=== PATIENT | male | born 1960 | race Caucasian/White ===

== ENCOUNTER 2024-01-18 04:25 | Emergency (ER) | payer BC, SELFPAY ==
[2024-01-18 04:36] VITALS: BP 185/101; PULSE 76; RESP 18; TEMP 37.1; O2SAT 98; BMI 34.0
--- NOTE | 2024-01-18 05:07 | ED_ITS ---
HPI - General Adult General Chief complaint: Neck Injury/Pain Stated complaint: Swelling/pain jaw Time Seen by Provider: 01/18/24 04:54 Source: patient Mode of arrival: ambulatory History of Present Illness HPI narrative: 63-year-old male presents the emergency department with anterior neck pain, sore throat now pain in the ears and feeling of chest congestion. No fevers. Reports that he is been using ?Excedrin every hour for the last day? with no significant improvement in symptoms. Says he feels like it is starting to get hard to swallow. Speaks in very full sentences and had no difficulty ambulating here but says that it feels like it is hard to breathe. Symptoms started 4 days ago, slightly worsening in nature. No prior history of neck surgery. No posterior neck pain or headache. No vision changes, cardiac symptoms or productive cough. Normal appetite. No injury or trauma. When asked about the area of initial pain, he points to the bilateral submandibular glands. No difficulty moving the neck. No speech changes. No difficulty opening his mouth. Past medical history notable for diabetes, hyperlipidemia. He also reports that he has diabetic neuropathy. No blood thinners, no history of cardiac issues. [facility] care team is from another health system and I do not have any access to his records. States that he is a nonsmoker. Medications reported as accurate per him but he does not know his doses and the recorded values are not based on any reliable records. ROS is notable for the generalized, respiratory, HEENT symptoms as above. Otherwise denies times 12 systems. Related Data Home Medications ?Medication ?Instructions ?Recorded ?Confirmed albuterol sulfate 90 mcg/actuation g inhalation 04/01/22 04/01/22 aerosol inhaler (Ventolin HFA) blood sugar diagnostic (Accu-Chek #10 ea 04/01/22 04/01/22 Guide test strips) gabapentin 100 mg capsule 100 mg PO 04/01/22 04/01/22 metformin 500 mg tablet 500 mg PO 04/01/22 04/01/22 rosuvastatin 20 mg tablet 20 mg PO 04/01/22 04/01/22 Previous Rx's ?Medication ?Instructions ?Recorded benzonatate 100 mg capsule 100 mg PO BID-TID PRN cough #14 04/01/22 caps amoxicillin 500 mg capsule 1,000 mg (2 x 500 mg) PO BID 10 01/18/24 days #40 caps Allergies Allergy/AdvReac Type Severity Reaction Status Date / Time No Known Drug Allergies Allergy Verified 04/01/22 12:09 [facility] Social History Smoking Status: Never smoker Exam Const: Vital Signs, click to edit/add: Vital Signs - 24 hr 01/18/24 04:36 01/18/24 05:15 01/18/24 06:47 Temperature 98.8 F 98.8 F 98.8 F Pulse Rate [Pulse Oximeter] 76 Respiratory Rate 18 Blood Pressure [Le ft Upper Arm] 185/101 H Pulse Oximetry 98 Oxygen Delivery Me thod Room Air Common normals: no apparent distress and alert General appearance: cooperative Other: Friendly but suboptimal historian. Answers are tangental. Able to speak in long full sentences with no difficulty breathing. Has a lot of fullness underneath the chin but as he manipulates and moves it, it is clear that this is chronic for him and is soft and mobile and not due to any new fluid collection. HENMT: Common normals: normocephalic and head/scalp atraumatic Head and scalp: normocephalic and atraumatic Other: Right canal into EMR inflamed with loss of light reflex and mucopurulent appearing effusion. Left side with mild erythema and injection but light reflex is still present. The oropharynx has swollen uvula. Tonsils themselves appear without asymmetry. No exudate. Mild erythema is present. He certainly is swallowing his saliva on exam for me. Eye: Other: Conjunctiva are slightly injected, no exudate. Neck & C-Spine: Common normals: no meningeal signs Other: Mild anterior cervical and submandibular lymphadenopathy. Full range of motion of the neck with no meningeal signs or asymmetry. No redness streaking down the neck. I do palpate that area of fullness underneath the chin and it is clear that this is anatomically normal for him. Resp: Common normals: normal respiratory effort, no use of accessory muscles and clear to auscultation bilaterally Effort & inspection: able to speak in complete sentences Auscultation: clear to auscultation bilaterally Cardio: Common normals: regular rate, regular rhythm, S1 normal heart sound, S2 normal heart sound and no murmurs Rate: regular rate Rhythm: regular rhythm Heart sounds: S1 normal and S2 normal Neuro: Sensorium/orientation: alert Meningeal signs: no meningeal signs Speech: speech normal Motor exam: no movement abnormalities noted Psych: Appearance: grossly normal Insight: fair Judgement: fair Skin: Common normals: no rashes or lesions noted General skin exam: no rashes or lesions noted Course Course ED Course: 63-year-old male with initially some tender submandibular area now progressing into ear tenderness, chest congestion and sore throat. No asymmetry or trismus to suggest abscess, spreading infection, respiratory compromise or true swallowing difficulty. He does seem quite miserable and seems like he is having difficulty coping with what does not seem to be a major illness. Will obtain swabs for strep, influenza COVID and RSV. Will give dexamethasone 6 mg p.o. x1, start him on amoxicillin for the ear infection and give some ibuprofen. He was counseled on use of the Excedrin properly. Is also reminded that the reason he probably cannot sleep is because he is taking Excedrin and it contains caffeine which he did not realize. Await swab results. Reevaluation(s) Time of Reevaluation #1: 06:53 Reevaluation #1: COVID swab is positive, patient counseled on results. Ear infection does seem most bothersome. Physical exam is concerning enough to warrant a trial of an antibiotic for this. Discussed with patient. Will start amoxicillin 1 g b.i.d .. Counseled that this will not treat the pharyngitis, chest congestion or viral symptoms. He is vaccinated against COVID. Instructed to wear mask in public for the next few days, counseled on Tylenol and ibuprofen and proper dosing. Okay to use melatonin or Unisom to help with sleep. Alarm symptoms reviewed that would warrant ED presentation. He verbalizes understanding and agreement. Follow up with primary care if not improving in 5-7 days. Okay to continue typical home medications. Vital Signs Vital signs: Initial Vital Signs Temperature 98.8 F 01/18/24 04:36 Temperature Source Temporal Artery Scan 01/18/24 04:36 Pulse Rate 76 01/18/24 04:36 Respiratory Rate 18 01/18/24 04:36 Blood Pressure 185/101 H 01/18/24 04:36 Blood Pressure Mean 129 H 01/18/24 04:36 Blood Pressure Position Sitting 01/18/24 04:36 Pulse Oximetry 98 0821/24 04:36 Oxygen Delivery Method Room Air 01/18/24 04:36 Vital Signs Temperature 98.8 F 01/18/24 04:36 Pulse Rate 76 01/18/24 04:36 Respiratory Rate 18 01/18/24 04:36 Blood Pressure 185/101 H 01/18/24 04:36 Pulse Oximetry 98 01/18/24 04:36 Oxygen Delivery Method Room Air 01/18/24 04:36 Temperature 98.8 F 01/18/24 06:47 Pulse Rate 76 01/18/24 04:36 Respiratory Rate 18 01/18/24 04:36 Blood Pressure 185/101 H 01/18/24 04:36 Pulse Oximetry 98 01/18/24 04:36 Oxygen Delivery Method Room Air 01/18/24 04:36 Medications Administered Medications: Discontinued Medications Generic Name Dose Route Start Last Admin Trade Name Freq PRN Reason Stop Dose Admin Amoxicillin 1,000 mg 01/18/24 05:04 01/18/24 05:16 Amoxicillin 250 Mg Capsule PO 01/18/24 05:05 1,000 mg ONCE ONE Administration Dexamethasone 6 mg 01/18/24 05:04 01/18/24 05:15 Dexamethasone 10 Mg/Ml Inj PO 01/18/24 05:05 6 mg ONCE ONE Administration Ibuprofen 800 mg 01/18/24 05:04 01/18/24 05:15 Ibuprofen 400 Mg Tablet PO 01/18/24 05:05 800 mg ONCE ONE Administration Medical Decision Making Lab Data Lab results reviewed: Yes I reviewed the patient's lab results Lab results narrative: COVID test positive, not unexpected. Labs: Lab Results 01/18/24 Range/Units 05:15 SARS-CoV-2 (PCR) POSITIVE SARS-CoV-2 A (Negative) Influenza Type A (PCR) Negative PCR FLU A (Negative) Influenza Type B (PCR) Negative PCR FLU B (Negative) RSV (PCR) Negative PCR RSV (Negative) Group A Strep DNA NOT DETECTED (Not Detectd) Discharge Plan Discharge Clinical Impression: COVID, Pharyngitis, Otitis media Patient Disposition: Home, Self-Care Condition: Stable Instructions: COVID-19 (Coronavirus Disease 2019) (ED) Additional Instructions: As we discussed, you have COVID. This virus can have many symptoms but I am seeing a lot of sore throats, throat, ear and chest congestion with this current strain. There are no signs of any severe complications. You were given a dose of dexamethasone, this is a great anti-inflammatory medication that will calm down the irritation and swelling. Most people notice quite a bit of improvement in just a few hours. I would recommend that you stop taking the Excedrin, as the caffeine is going to keep you awake. I would recommend Tylenol 1000 mg every 6 hours and ibuprofen 600 mg every 6 hours. You will need to continue on antibiotics for the ear infection. This will not treat the throat or chest congestion. You were given your 1st dose here in the emergency department at about 6:00 a.m.. You will be due for another dose this evening at around 6:00 p.m.. 2 pills 2 times a day for total of 10 days. The swelling in the throat can be a little uncomfortable but you should be able to swallow even though it is slightly difficult. There are no signs of any airway compromise today. If you are not noticing improvement at least somewhat within 48 hours, seek re- evaluation at an urgent care or primary care office. Any severe shortness of breath should be evaluated in an emergency room. Continue taking your medications as prescribed you may notice that your blood sugar is a bit higher than usual for 2 days due to the dexamethasone. This is temporary and not worrisome. Activity Level: No Restrictions Discharge Diet: Regular Prescriptions: New amoxicillin 500 mg capsule 1,000 mg PO BID 10 Days Qty: 40 0RF No Action albuterol sulfate [Ventolin HFA] 90 mcg/actuation HFA aerosol inhaler inhalation Patient Comments: INHALE 2 PUFFS BY MOUTH EVERY 6 HOURS gabapentin 100 mg capsule 100 mg PO metformin 500 mg tablet 500 mg PO rosuvastatin 20 mg tablet 20 mg PO (DME) Accu-Chek Guide test strips Strip See Rx Instructions .ROUTE .MEDSUPPLY Qty: 10 Patient Comments: USE TO TEST FOUR TIMES DAILY OR DIRECTED Rx Instructions: As directed benzonatate 100 mg capsule 100 mg PO BID-TID PRN (Reason: cough) Qty: 14 0RF Follow Up/Referrals: Provider,Not a Local [Primary Care Provider] - Stand Alone Forms: [employer] Info Instructions
[2024-01-18 05:15] VITALS: TEMP 37.1
[2024-01-18] MEDS: IBUPROFEN 400 MG TABLET 800 MG PO (05:15)
[2024-01-18] MEDS: dexAMETHasone 10 MG/ML inj 6 MG PO (05:15)
[2024-01-18] MEDS: AMOXICILLIN 250 MG CAPSULE 1000 MG PO (05:16)
[2024-01-18 05:44] LABS: Strep A DNA Probe* NOT DETECTED (Not Detectd)
[2024-01-18 06:38] LABS: PCR FLU A Negative PCR FLU A (Negative); PCR FLU B Negative PCR FLU B (Negative); PCR RSV Negative PCR RSV (Negative); SARS PCR* POSITIVE SARS-CoV-2 (Negative)
[2024-01-18 06:47] VITALS: TEMP 37.1
[2024-01-18 07:00] VITALS: BP 185/101; PULSE 76; RESP 18; TEMP 37.1
== END 2024-01-18 07:00 | disposition home or self-care (01) ==
PROVIDERS: Emergency Provider Family Medicine
DX: H66.93 Otitis media, unspecified, bilateral (principal); U07.1 COVID-19
CPT/HCPCS: 87631; 87651; 99283; A9270; J1100

== ENCOUNTER 2024-03-25 11:39 | Emergency (ER) | payer BC, SELFPAY ==
[2024-03-25 11:56] VITALS: BP 166/96; PULSE 67; RESP 16; TEMP 36.6; O2SAT 97; BMI 35.4
--- NOTE | 2024-03-25 12:23 | ED.EYEPROB ---
HPI - Eye Problem General Chief complaint: Eye Problems Stated complaint: Swollen right eye Time Seen by Provider: 03/25/24 11:41 History of Present Illness HPI Narrative: This 63-year-old male comes in with irritation of his right eye. He states that it was fiber 6 days ago he was doing some yd work and got extra dust and debris blown into his right eye. He does not report any discharge but has had persistent erythema with mild swelling of the right upper eyelid laterally. He also has some yellowish discoloration of the sclera on the lateral aspect of his right eye. He does not report any eye pain. He states that he was using a warm compress thinking that this might be a stye. Related Data Home Medications ?Medication ?Instructions ?Recorded ?Confirmed albuterol sulfate 90 mcg/actuation g inhalation 04/01/22 04/01/22 aerosol inhaler (Ventolin HFA) blood sugar diagnostic (Accu-Chek #10 ea 04/01/22 04/01/22 Guide test strips) gabapentin 100 mg capsule 100 mg PO 04/01/22 04/01/22 metformin 500 mg tablet 500 mg PO 04/01/22 04/01/22 rosuvastatin 20 mg tablet 20 mg PO 04/01/22 04/01/22 Previous Rx's ?Medication ?Instructions ?Recorded benzonatate 100 mg capsule 100 mg PO BID-TID PRN cough #14 04/01/22 caps amoxicillin 500 mg capsule 1,000 mg (2 x 500 mg) PO BID 10 01/18/24 days #40 caps ketorolac 0.5 % eye drops (Acular) 1 drp ophthalmic (eye) QID #5 mL 03/25/24 polymyxin B sulfate 10,000 1 drp ophthalmic (eye) Q3H 7 days 03/25/24 unit-trimethoprim 1 mg/mL eye drops #10 mL Allergies Allergy/AdvReac Type Severity Reaction Status Date / Time No Known Drug Allergies Allergy Verified 04/01/22 12:09 Review of Systems Status of ROS: Reports: 10 or more systems reviewed and unremarkable except as noted in History and below Narrative: Constitutional: No fevers, no weight gain or loss. Eyes: No discharge. No vision changes. Right upper eyelid changes as described above. HENT: No congestion, no sore throat, no ear pain. Cardiovascular: No chest pain, no palpitations. Respiratory: No shortness of breath, no wheezes, no cough. Gastrointestinal: No abdominal pain, no vomiting, no diarrhea. Genitourinary: No dysuria, no hematuria. Musculoskeletal: Normal range of motion. Skin: No rashes, no pruritis. Neurological: No dizziness, weakness, sensory change, speech change. Endo/Heme/Allergies: No bruising or bleeding. No polydipsia. Pysch: no suicidality, no anxiety, no insomnia. All other systems reviewed and are negative. [facility] Social History Smoking Status: Never smoker How often do you have a drink containing alcohol: never AUDIT-C Alcohol total score: 0 Non-prescribed substance use: denies use Exam Narrative: Exam Narrative: Constitutional: Well-developed, well-nourished, no acute distress. HEENT: Normocephalic, atraumatic. Left eye appears normal. Right eye does have some mild yellowish color on the lateral aspect only, not typical of jaundice. Right upper eyelid has some erythema and mild swelling. Visual chung are intact. No sign of tearing or purulent discharge. Neck: Normal range of motion. Nontender. Supple. Heart: Intact distal pulses. Lungs: No chest discomfort. No wheezes, rhonchi, or rales. Abdomen: Nontender. Back: Normal range of motion. Extremities: Normal range of motion. No injury. Skin: Intact. No rash. Warm. No erythema or pallor. Neurologic: No altered sensation. No weakness. Alert and oriented. Psychiatric: No suicidality. No anxiety or depression. No insomnia. Nursing notes and vitals signs are reviewed. Const: Vital Signs, click to edit/add: Vital Signs - 24 hr 03/25/24 11:56 Temperature 97.8 F Pulse Rate [Pulse Oximeter] 67 Respiratory Rate 16 Blood Pressure [Ri ght Upper Arm] 166/96 H Pulse Oximetry 97 Oxygen Delivery Me thod Room Air Course Vital Signs Vital signs: Initial Vital Signs Temperature 97.8 F 03/25/24 11:56 Temperature Source Temporal Artery Scan 03/25/24 11:56 Pulse Rate 67 03/25/24 11:56 Respiratory Rate 16 03/25/24 11:56 Blood Pressure 166/96 H 03/25/24 11:56 Blood Pressure Mean 119 H 10/27/24 11:56 Blood Pressure Position Sitting 03/25/24 11:56 Pulse Oximetry 97 03/25/24 11:56 Oxygen Delivery Method Room Air 03/25/24 11:56 Vital Signs Temperature 97.8 F 03/25/24 11:56 Pulse Rate 67 03/25/24 11:56 Respiratory Rate 16 03/25/24 11:56 Blood Pressure 166/96 H 03/25/24 11:56 Pulse Oximetry 97 03/25/24 11:56 Oxygen Delivery Method Room Air 03/25/24 11:56 Temperature 97.8 F 03/25/24 11:56 Pulse Rate 67 03/25/24 11:56 Respiratory Rate 16 03/25/24 11:56 Blood Pressure 166/96 H 03/25/24 11:56 Pulse Oximetry 97 03/25/24 11:56 Oxygen Delivery Method Room Air 03/25/24 11:56 MDM - Eye Problem MDM Narrative Medical decision making narrative: This patient comes in with complaints involving his right eye and eyelid as described above. I did examine his eye under magnification and saw that no sign of foreign object. He does have some erythema of the right upper eyelid laterally with mild swelling. The patient states that he does have an appointment with his eye doctor in a few weeks. I did prescribe ketorolac ophthalmic solution and Polytrim for symptomatic relief and if there is a possibility of infection this hopefully will help him. Discharge Plan Discharge Clinical Impression: Bacterial conjunctivitis Additional Instructions: Take medication as prescribed. Follow-up with eye doctor as scheduled or sooner if needed. Return if worsening. Prescriptions: New polymyxin B sulf-trimethoprim 10,000 unit- 1 mg/mL drops 1 drp ophthalmic (eye) Q3H 7 Days Qty: 10 0RF Rx Instructions: while awake; do not exceed 6 doses in 24 hours ketorolac [Acular] 0.5 % drops 1 drp ophthalmic (eye) QID Qty: 5 0RF No Action albuterol sulfate [Ventolin HFA] 90 mcg/actuation HFA aerosol inhaler inhalation Patient Comments: INHALE 2 PUFFS BY MOUTH EVERY 6 HOURS gabapentin 100 mg capsule 100 mg PO metformin 500 mg tablet 500 mg PO rosuvastatin 20 mg tablet 20 mg PO (DME) Accu-Chek Guide test strips Strip See Rx Instructions .ROUTE .MEDSUPPLY Qty: 10 Patient Comments: USE TO TEST FOUR TIMES DAILY OR DIRECTED Rx Instructions: As directed benzonatate 100 mg capsule 100 mg PO BID-TID PRN (Reason: cough) Qty: 14 0RF amoxicillin 500 mg capsule 1,000 mg PO BID 10 Days Qty: 40 0RF Follow Up/Referrals: Provider,Not a Local [Primary Care Provider] - Stand Alone Forms: [employer] Info Instructions
== END 2024-03-25 12:39 | disposition home or self-care (01) ==
LOC: ED 12:32
PROVIDERS: Emergency Provider Emergency Medicine Emergency Medical Services
DX: H10.021 Other mucopurulent conjunctivitis, right eye (principal)
CPT/HCPCS: 99283; 99284

== ENCOUNTER 2024-12-26 12:00 | Inpatient (IN) | payer MEDICARE, MEDICAID, SELFPAY ==
--- OUTSIDE RECORDS SUMMARY | 2024-12-26 12:02 | XMS_ITS | Patient Health Record ---
Author Organization [facility] 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 Pt currently lives alone in an apartment in [place]. Pt currently lives alone in an apartment in [place]. Pt currently lives alone in an apartment in [place]. Pt currently lives alone in an apartment in [place]. Pt currently lives alone in an apartment in [place] Pt currently lives alone in an apartment [place] Pt currently lives alone in an apartment [place] Pt currently lives alone in an apartment [place] Pt currently lives alone in an apartment [place] Pt currently lives alone in an apartment [place] Pt currently lives alone in an apartment [place] Pt currently lives alone in an apartment [place] Pt currently lives alone in an apartment [place] Pt currently lives alone in an apartment [place] Pt currently lives alone in an apartment [place] Pt currently lives alone in an apartment [place] Pt currently lives alone in an apartment [place] Pt currently lives alone in an apartment [place] Pt currently lives alone in an apartment [place] Pt currently lives alone in an apartment [place] Pt currently lives alone in an apartment [place] Pt currently lives alone in an apartment [place] Pt currently lives alone in an apartment [place] Pt currently lives alone in an apartment [place] Pt currently lives alone in an apartment [place] Pt currently lives alone in an apartment [place] Pt currently lives alone in an apartment [place] Pt currently lives alone in an apartment [place] Pt currently lives alone in an apartment [place] Pt currently lives alone in an apartment [place] Pt currently lives alone in an apartment [place] Pt currently lives alone in an apartment [place] Pt currently lives alone in an apartment [place] Pt currently lives alone in an apartment [place] Pt currently lives alone in an apartment [place] Pt currently lives alone in an apartment [place] Pt currently lives alone in an apartment [place] Pt currently lives alone in an apartment [place] Pt currently lives alone in an apartment [place] Pt currently lives alone in an apartment [place] Pt currently lives alone in an apartment [place] Pt currently lives alone in an apartment [place] Pt currently lives alone in an apartment [place] Pt currently lives alone in an apartment [place] Pt currently lives alone in an apartment [place] Pt currently lives alone in an apartment [place] Pt currently lives alone in an apartment [place] Pt currently lives alone in an apartment [place] Pt currently lives alone in an apartment [place] Pt currently lives alone in an apartment [place] Pt currently lives alone in an apartment [place] Pt currently lives alone in an apartment in [place]. Pt currently lives alone in an apartment in [place]. Pt currently lives alone in an apartment in [place]. Pt currently lives alone in an apartment in [place]. Pt currently lives alone in an apartment in [place]. Problems Problem Type SNOMED Code ICD Code Onset Dates Problem Status W/U Status Risk Notes Problem Headache (26294456) Headache (784.0) Active confirmed Problem displacement of cervical intervertebral disc (disorder) (583261388) CERVICAL DISC DISPLACMNT (722.0) Active confirmed Problem SPRAIN OF NECK (847.0) Active confirmed Plan Of Treatment No Information Insurance Providers Payer Name Payer Address Payer Phone Subscriber Number Group Number Insured Name Patient Relationship to Insured Coverage Start Date Coverage End Date State [facility] auto [address] [address] [place] [address] [phone] [id number] Rodo Givens Self - patient is the insured test 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 Berumen and chiropractor in [place] History of diverticulosis for the last 1 5-20 yrs with prior surgery
--- OUTSIDE RECORDS SUMMARY | 2024-12-26 12:02 | XMS_ITS | Encounter Summary ---
Author Organization [facility] Address [address] [place] [address] Care Team Providers Care Corporate Director Of Pharmacy Name Role Phone Dyan Baca MD Primary Care Provider [phone] Dyan Baca MD Unavailable [phone] Robin Rice OD Unavailable [phone] Dyan Baca MD Unavailable [phone] Reason for Visit * Reason Comments Medication Refill Encounter Details Date Type Department Care Team (Late st Contact Info) Description 04/25/[address] [place] [address] Dyan Baca MD [address] [place] [id number] Medication Refill Social History Tobacco Use Types Packs/Day Years Used Date Smoking Tobacco: Never Smokeless Tobacco: Never Alcohol Use Standard Drinks/Week Comments Not Currently 0 (1 standard drink = 0.6 oz pur e alcohol) None for 10 yrs PHQ-2 Answer Date Recorded PHQ-2 Score 0 07/25/2020 Sex and Gender Information Value Date Recorded Sex Assigned at Not on file Legal Sex Male 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 No / Unsure 04/20/2021 10:18 AM VAT OPERATOR documented as of this encounter Plan of Treatment Upcoming Encounters Date Type Department Care Team (Late st Contact Info) Description 12/28/2024 8:00 AM CDT Office Visit [facility] [address] [facility], [address] [place] [phone] Dyan Baca MD [address] [place] [id number] documented as of this encounter Visit Diagnoses Diagnosis Cough documented in this encounter Care Teams Corporate Director Of Pharmacy Relationship Specialty Start Date End Date Dyan Baca MD [address] [place] [id number] PCP - General Internal Medicine 12/18/18 Dyan Baca MD [address] [place] [id number] Assigned PCP 11/24/18 Robin Rice OD [address] [place] [address] [id number] Ophthalmology 12/28/23 Dyan Baca MD [address] [place] [address] Referring Physician Internal Medicine 12/28/23 documented as of this encounter
--- OUTSIDE RECORDS SUMMARY | 2024-12-26 12:02 | XMS_ITS | Encounter Summary ---
Author Organization [place] Address [address] [place] [address] Care Team Providers Care Database Marketing Analyst Name Role Phone Dyan Baca MD Primary Care Provider Dyan Baca MD Unavailable [phone] Robin Rice OD Unavailable [phone] Dyan Baca MD Unavailable [phone] Reason for Visit * Reason Comments Medication Refill Encounter Details Date Type Department Care Team (Late st Contact Info) Description 08/21/[address] [place] [phone] Dyan Baca MD [address] [place] [address] Medication Refill Social History Tobacco Use Types Packs/Day Years Used Date Smoking Tobacco: Never Smokeless Tobacco: Never Alcohol Use Standard Drinks/Week Comments Not Currently 0 (1 standard drink = 0.6 oz pur e alcohol) None for 10 yrs PHQ-2 Answer Date Recorded PHQ-2 Score 0 05/04/2021 Sex and Gender Information Value Date Recorded Sex Assigned at Not on file 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 Aliza Alarcon, RN [facility] grader patrol Team documented in this encounter Plan of Treatment Upcoming Encounters Date Type Department Care Team (Late st Contact Info) Description 12/28/2024 8:00 AM CDT Office Visit [facility] [address] [facility], [address] [place] [address] Dyan Baca MD [address] [place] [address] documented as of this encounter Visit Diagnoses Diagnosis Type 2 diabetes mellitus without complication, without long-term current use of insulin (H) documented in this encounter Care Teams Database Marketing Analyst Relationship Specialty Start Date End Date Dyan Baca MD [address] [place] [address] PCP - General Internal Medicine 12/18/18 Dyan Baca MD [address] [place] [address] Assigned PCP 11/24/18 Robin Rice OD [address] [place] [address] Ophthalmology 12/28/23 Dyan Baca MD [address] [place] [address] Referring Physician Internal Medicine 12/28/23 documented as of this encounter
--- OUTSIDE RECORDS SUMMARY | 2024-12-26 12:02 | XMS_ITS | Encounter Summary ---
Author Organization [place] Address [address] [facility] 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 Bhavani Loyd RN IFOCAL BUTTON GRINDER documented in this encounter Plan of Treatment Upcoming Encounters Date Type Department Care Team (Late st Contact Info) Description 12/28/2024 8:00 AM CDT Office Visit [facility] [address], [address] [place] [phone] Dyan Baca MD [address] [place] [address] documented as of this encounter Visit Diagnoses Diagnosis Pneumonia of left upper lobe due to infectious organism documented in this encounter Care Teams Retirement Manager Relationship Specialty Start Date End Date Dyan Baca MD [address] [place] [phone] PCP - General Internal Medicine 12/18/18 Dyan Baca MD [address] [place] [phone] Assigned PCP 11/24/18 Robin Rice OD [address] [place] [id number] Ophthalmology 12/28/23 Dyan Baca MD [address] [place] [address] Referring Physician Internal Medicine 12/28/23 documented as of this encounter
--- OUTSIDE RECORDS SUMMARY | 2024-12-26 12:02 | XMS_ITS | Encounter Summary ---
Author Organization [place] Address [address] [facility] [place] [address] Care Team Providers Care Visitor Use Assistant Name Role Phone Dyan Baca MD Primary Care Provider Dyan Baca MD Unavailable Ta Shetty MD Unavailable Duong Carrizales MD Unavailable Unavailabl Robin Salcedo OD Unavailable Dyan Baca MD Unavailable Reason for Visit * Reason Comments Medication Refill Encounter Details Date Type Department Care Team (Late st Contact Info) Description 12/18/2020 Refill [facility] [address] [place] [address], [address] [place] [address] Dyan Baca MD [address] [facility] 150 [place], [place] [phone] Medication Refill Social History Tobacco Use Types [...] on file 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 Dina Nunez RN [place] documented in this encounter Plan of Treatment Upcoming Encounters Date Type Department Care Team (Late st Contact Info) Description 12/28/2024 8:00 AM CDT Office Visit [facility] [place] [address] [facility], [address] [place] [phone] Dyan Baca MD [address] [place] [address] documented as of this encounter Visit Diagnoses Diagnosis Type 2 diabetes mellitus without complication, without long-term current use of insulin (H) documented in this encounter Care Teams Visitor Use Assistant Relationship Specialty Start Date End Date Dyan Baca MD [address] [place] [address] PCP - General Internal Medicine 12/18/18 Dyan Baca MD [address] [place] [address] Assigned PCP 11/24/18 Ta Shetty MD [address] [place] [address] Assigned Surgical Provider 03/21/20 01/17/21 Duong Carrizales MD Assigned Heart and Vascular Provider 03/21/20 03/28/21 Robin Rice OD [address] [place] [id number] Ophthalmology 12/28/23 Dyan Baca MD [address] [facility] [address] [place] [address] Referring Physician Internal Medicine 12/28/23 documented as of this encounter
--- OUTSIDE RECORDS SUMMARY | 2024-12-26 12:02 | XMS_ITS | Encounter Summary ---
Author Organization [place] Address [address] [facility] 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 No / Unsure 07/04/2021 3:26 PM MANAGER LOSS PREVENTION documented as of this encounter Miscellaneous Notes * Telephone Encounter - Becky Nino RN - 07/28/2021 12:06 PM CST Prescription approved per [facility] Refill Protocol. Becky Wei it recruiter [facility] GER LOSS PREVENTION documented in this encounter Plan of Treatment Upcoming Encounters Date Type Department Care Team (Late st Contact Info) Description 12/28/2024 8:00 AM CDT Office Visit [facility] [address], [address] [place] [phone] Dyan Baca MD [address] [place], [place] [phone] documented as of this encounter Visit Diagnoses Diagnosis Pneumonia of left upper lobe due to infectious organism documented in this encounter Care Teams Personal Computer Network Engineer Relationship Specialty Start Date End Date Dyan Baca MD [address] [place], [place] [address] PCP - General Internal Medicine 12/18/18 Dyan Baca MD [address] [place], [place] [address] Assigned PCP 11/24/18 Robin Rice OD [address] [place] [address] Ophthalmology 12/28/23 Dyan Baca MD [address] [place], [place] [phone] Referring Physician Internal Medicine 12/28/23 documented as of this encounter
--- OUTSIDE RECORDS SUMMARY | 2024-12-26 12:02 | XMS_ITS | Clinical Summary ---
Author Organization [facility] Address [address] [place] [address] Care Team Providers Care Pond Tender Name Role Phone Needs Pcp, Assignment Primary Care Provider Source Comments You are receiving this document as you are listed as the primary care provider,follow-up provider, or the patient has been referred to you for consultation.This is in compliance with the Medicare andMedicaid EHR Incentive Program,which states Providers who transition their patient to another setting of careor provider of care or refers their patient to another provider of care shouldprovide summary care record for each transition of care or referral. [facility] Allergies No known active allergies Medications gabapentin (NEURONTIN) 100 MG capsule Take 100 mg by mouth three times a day. 07/08/2021 Active metFORMIN (GLUCOPHAGE) 500 MG tablet Take 500 mg by mouth two times a day. 05/26/2021 Active rosuvastatin (CRESTOR) 20 MG tablet Take 20 mg by mouth daily at bedtime. 07/14/2021 Active Active Problems Problem Noted Date Diagnosed Date Lumbago 11/03/2002 Overview (01/19/2017): Pain Low Back Immunizations Immunization Administration Dates Next Due Tdap 07/28/2021 Social History Tobacco Use Types Packs/Day Years Used Date Smoking Tobacco: Never Smokeless Tobacco: Never Sex and Gender Information Value Date Recorded Sex Assigned at Not on file Legal Sex Male 6:25 PM CDT Gender Identity Not on file Sexual Orientation Not on file Last Filed Vital Signs Vital Sign Reading Time Taken Comments Blood Pressure 118/76 07/28/2021 2:56 PM FIRE PREVENTION SPECIALIST Pulse 97 07/28/2021 2:56 PM FIRE PREVENTION SPECIALIST Temperature 36.5 C (97.7 F) 07/28/2021 2:56 PM FIRE PREVENTION SPECIALIST Respiratory Rate 14 07/28/2021 2:56 PM FIRE PREVENTION SPECIALIST Oxygen Saturation 100% 07/28/2021 2:56 PM FIRE PREVENTION SPECIALIST Inhaled Oxygen Concentration - - Weight - - Height - - Body Mass Index - - Plan of Treatment Health Maintenance Due Date Last Done Comments Colon Cancer Screening Plan Due 1959 Hep C Screening (Preventive Services) 1960 PSA Screening Discussion 1959 Adult Preventive Visit 1977 Cholesterol 1994 Pneumococcal Vaccine 50+ Yrs (1 of 1 - PCV) 2009 Zoster/Shingles Vaccine (1 o f 2) 2009 COVID-19 Vaccine (4 - 2023-2 5 season) 2024 05/04/2021, 07/29/2020, 07/07/2020 Influenza Vaccine (#1) 2025 02/25/2016 DTaP/Tdap/Td Vaccine (3 - Tdap) 07/29/2031 07/28/2021, 11/06/2012 RSV Vaccine (1 - 1-dose 75+ series) 2034 HepA Vaccine Aged Out No longer eligi ble based on patient's age to complete this topic HepB Vaccine Aged Out No longer eligi ble based on patient's age to complete this topic Hib Vaccine Aged Out No longer eligi ble based on patient's age to complete this topic IPV (Polio) Vaccine Aged Out No longe r eligible based on patient's age to complete this topic MCV4 Vaccine Aged Out No longer eligi ble based on patient's age to complete this topic Meningococcal B Vaccine Aged Out No l onger eligible based on patient's age to complete this topic Care Teams Pond Tender Relationship Specialty Start Date End Date Needs Pcp, [place] [address] PCP - General 04/02/22
--- OUTSIDE RECORDS SUMMARY | 2024-12-26 12:02 | XMS_ITS | Encounter Summary ---
Author Organization [place] Address [facility] [place] [address] Care Team Providers Care Diagnostic Radiologic Technologist Name Role Phone Dyan Baca MD Primary Care Provider Dyan Baca MD Unavailable [phone] Robin Rice OD Unavailable [phone] Dyan Baca MD Unavailable Reason for Visit * Reason Comments Medication Refill Encounter Details Date Type Department Care Team (Late Contact Info) Description 03/30/2021 Refill [place] [address] [facility], [address] [place] [phone] Dyan Baca MD [address] [facility] 150 [place] [address] Medication Refill Social History Tobacco Use [...] on file Legal Sex Male 3:42 AM 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 LEAD Gender Identity Not on file Sexual Orientation Not on file 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, 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 Not on file Not on f ile documented as of this encounter Plan of Treatment Upcoming Encounters Date Type Department Care Team (Late st Contact Info) Description 12/28/2024 8:00 AM CDT Office Visit [address], [address] [place] [phone] Dyan Baca MD [address] [place] [address] documented as of this encounter Visit Diagnoses Diagnosis Pneumonia of left upper lobe due to infectious organism documented in this encounter Care Teams Diagnostic Radiologic Technologist Relationship Specialty Start Date End Date Dyan Baca MD [address] [place] [address] PCP - General Internal Medicine 12/18/18 Dyan Baca MD [address] [place] [address] Assigned PCP 11/24/18 Robin Rice OD [address] [place] [phone] Ophthalmology 12/28/23 Dyan Baca MD [address] [place] [address] Referring Physician Internal Medicine 12/28/23 documented as of this encounter
--- OUTSIDE RECORDS SUMMARY | 2024-12-26 12:02 | XMS_ITS | Encounter Summary ---
Author Organization [place] Address [address] [facility] [place] [address] Care Team Providers Care Business Analysis Specialist Name Role Phone Dyan Baca MD Primary Care Provider Dyan Baca MD Unavailable [phone] Ta Shetty MD Unavailable Duong Carrizales MD Unavailable Unavailabl Robin Salcedo OD Unavailable Dyan Baca MD Unavailable Reason for Visit * Reason Comments Medication Refill Encounter Details Date Type Department Care Team (Late st Contact Info) Description 12/25/2020 Refill [facility] [address] [place] [address], [address] [place] [address] Dyan Baca MD [address] [facility] 150 [place], [place] [phone] Medication Refill Social History Tobacco Use Types [...] on file 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 Dina Nunez RN [facility] documented in this encounter Plan of Treatment Upcoming Encounters Date Type Department Care Team (Late st Contact Info) Description 12/28/2024 8:00 AM CDT Office Visit [facility] [address] [facility], [address] [place] [address] Dyan Baca MD [address] [place] [address] documented as of this encounter Visit Diagnoses Diagnosis Cough documented in this encounter Care Teams Business Analysis Specialist Relationship Specialty Start Date End Date Dyan Baca MD [address] [place] [address] PCP - General Internal Medicine 12/18/18 Dyan Baca MD [address] [place] [address] Assigned PCP 11/24/18 Ta Shetty MD [address] [place] [address] Assigned Surgical Provider 03/21/20 01/17/21 Duong Carrizales MD Assigned Heart and Vascular Provider 03/21/20 03/28/21 Robin Rice OD [address] [place] [address] Ophthalmology 12/28/23 Dyan Baca MD [address] [facility] [address] [place] [address] Referring Physician Internal Medicine 12/28/23 documented as of this encounter
--- OUTSIDE RECORDS SUMMARY | 2024-12-26 12:02 | XMS_ITS | Encounter Summary ---
Author Organization [place] Address [address] [facility] [place] [address] Care Team Providers Care Lace Machine Operator Name Role Phone Dyan Baca MD Primary Care Provider [phone] Dyan Baca MD Unavailable [phone] Robin Rice OD Unavailable [phone] Dyan Baca MD Unavailable Reason for Visit * Reason Comments Medication Refill Encounter Details Date Type Department Care Team (Late st Contact Info) Description 07/25/[address] [place] [phone] Dyan Baca MD [address] [place] [address] Medication Refill Social History Tobacco Use Types Packs/Day Years Used Date Smoking Tobacco: Never Smokeless Tobacco: Never Alcohol Use Standard Drinks/Week Comments Not Currently 0 (1 standard drink = 0.6 oz pur e alcohol) None for 10 yrs PHQ-2 Answer Date Recorded PHQ-2 Score 0 01/13/2022 Sex and Gender Information Value Date Recorded Sex Assigned at Not on file Legal Sex Male 3:42 AM POOL HAND Gender Identity Not on file Sexual Orientation Not on file 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 No / Unsure 07/14/2022 2:14 PM POOL HAND documented as of this encounter Plan of Treatment Upcoming Encounters Date Type Department Care Team (Late st Contact Info) Description 12/28/2024 8:00 AM CDT Office Visit [facility] [address] [facility], [address] [place] [phone] Dyan Baca MD [address] [place] [address] documented as of this encounter Visit Diagnoses Diagnosis Diabetic polyneuropathy associated with type 2 diabetes mellitus (H) documented in this encounter Care Teams Lace Machine Operator Relationship Specialty Start Date End Date Dyan Baca MD [address] [place] [address] PCP - General Internal Medicine 12/18/18 Dyan Baca MD [address] [place] [address] Assigned PCP 11/24/18 Robin Rice OD [address] [place] [address] Ophthalmology 12/28/23 Dyan Baca MD [address] [place] [address] Referring Physician Internal Medicine 12/28/23 documented as of this encounter
--- OUTSIDE RECORDS SUMMARY | 2024-12-26 12:02 | XMS_ITS | Clinical Summary ---
Author Organization [employer] [facility] Address [address] [place] [address] Care Team Providers Care It Security Manager Name Role Phone Clinic, No Pcp Or Primary Care Provider Unavaila ble Allergies No known active allergies Medications nystatin (MYCOSTATIN) cream Apply twice daily for 2 weeks, then as needed 60 g 11/06/2012 11:44 AM CDT 3 Active ibuprofen (ADVIL; MOTRIN) 600 mg tabletIndication s:Pneumonia of right upper lobe due to infectious organism,Fever, unspecified fever cause Take 1 tablet by mouth every 6 hours if needed for Pain. 21 tablet 0 6 Active codeine-guaiFENe sin (ROBITUSSIN AC) 10-100 mg/5 mL liquidIndication s:Pneumonia of right upper lobe due to infectious organism Take 5 mL by mouth every 4 hours if needed for Cough. Max dose 60 mL per 24 hrs. 120 mL 0 6 Active fluticasone (50 mcg per actuation) nasal solution (FLONASE)Indicat ions:Allergic rhinitis, unspecified allergic rhinitis type Inhale 2 Sprays into both nostrils once daily. 1 Bottle 0 6 Active Immunizations Immunization Administration Dates Next Due Influenza, IIV4 02/25/2016 Tdap 11/06/2012 Social History Tobacco Use Types Packs/Day Years Used Date Smoking Tobacco: Never Smokeless Tobacco: Never Alcohol Use Standard Drinks/Week Comments No 0 (1 standard drink = 0.6 oz pur e alcohol) Sex and Gender Information Value Date Recorded Sex Assigned at Not on file Legal Sex Male 11:33 AM CDT Gender Identity Not on file Sexual Orientation Not on file Obstetrics History Last Filed Vital Signs Vital Sign Reading Time Taken Comments Blood Pressure 128/85 02/25/2017 3:36 PM CDT Pulse 87 02/25/2017 3:36 PM CDT Temperature 36.8 C (98.3 F) 02/25/2017 3:36 PM CDT Respiratory Rate 16 02/25/2017 3:36 PM CDT Oxygen Saturation 95% 02/25/2017 3:36 PM CDT Inhaled Oxygen Concentration - - Weight 127 kg (280 lb) 02/25/2016 11:53 AM CDT Height 177.8 cm (5' 10) 02/25/2016 11:53 AM CDT Body Mass Index 40.18 02/25/2016 11:53 AM CDT Plan of Treatment Health Maintenance Due Date Last Done Comments HIV for age 15-65 1974 Hepatitis C screening for ag e 18-79 1977 Colonoscopy through age 75 2004 Lipids for age 45-75 2004 Pneumococcal series for age 50+ (1 of 1 - PCV) 2009 Zoster (shingles) series for age 50+ (1 of 2) 2009 BMI (ht and wt on same day) for age 18+ 02/24/2017 02/25/2016 Depression screening for age 12+ 02/24/2017 02/25/2016, 02/25/2016, 02/25/2016 Tetanus booster 11/06/2022 11/06/2012 COVID-19 vaccine series ( - 2023- season) 2024 Influenza Vaccine (#1) 2025 02/25/2016 RSV vaccine for adults or (1 - 1-dose 75+ series) 2034 Hepatitis B series for 19+ Aged Out N o longer eligible based on patient's age to complete this topic Care Teams It Security Manager Relationship Specialty Start Date End Date Clinic, No Pcp Or . PCP - General 02/25/17
--- OUTSIDE RECORDS SUMMARY | 2024-12-26 12:02 | XMS_ITS | Encounter Summary ---
Author Organization [place] Address [address] [facility] [place] [address] Care Team Providers Care Commissions Manager Name Role Phone Dyan Baca MD Primary Care Provider Dyan Baca MD Unavailable Duong Carrizales MD Unavailable Unavailabl Robin Salcedo OD Unavailable [phone] Dyan Baca MD Unavailable Reason for Visit * Reason Comments Medication Refill Encounter Details Date Type Department Care Team (Late st Contact Info) Description 01/18/2021 Refill [facility] [address] [place] [address], [address] [place] [address] Dyan Baca MD [address] [facility] [address] [place], [place] [address] Medication Refill Social History Tobacco Use Types [...] on file 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 Aliza Alarcon, RN [facility] senior java software engineer Team documented in this encounter Plan of Treatment Upcoming Encounters Date Type Department Care Team (Late st Contact Info) Description 12/28/2024 8:00 AM CDT Office Visit [facility] [address] [facility], [address] [place] [phone] Dyan Baca MD [address] [place], [place] [phone] documented as of this encounter Visit Diagnoses Diagnosis Type 2 diabetes mellitus without complication, without long-term current use of insulin (H) documented in this encounter Care Teams Commissions Manager Relationship Specialty Start Date End Date Dyan Baca MD [address] [place] [address] PCP - General Internal Medicine 12/18/18 Dyan Baca MD [address] [place] [address] Assigned PCP 11/24/18 Duong Carrizales MD Assigned Heart and Vascular Provider 03/21/20 03/28/21 Robin Rice OD [address] [place] [id number] Ophthalmology 12/28/23 Dyan Baca MD [address] [place], [place] [address] Referring Physician Internal Medicine 12/28/23 documented as of this encounter
--- OUTSIDE RECORDS SUMMARY | 2024-12-26 12:02 | XMS_ITS | Encounter Summary ---
Author Organization [place] Address [address] [facility] 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 No / Unsure 05/04/2021 8:27 AM POULTRY FARM MANAGER documented as of this encounter Miscellaneous Notes * Telephone Encounter - Bhavani Mathis RN - 05/20/2021 12:01 PM CST Prescription approved per [facility] Refill Protocol. Bhavani Loyd RN TRY FARM MANAGER documented in this encounter Plan of Treatment Upcoming Encounters Date Type Department Care Team (Late st Contact Info) Description 12/28/2024 8:00 AM CDT Office Visit [facility] [place] [address] [facility], [address] [place] [phone] Dyan Baca MD [address] [place] [id number] documented as of this encounter Visit Diagnoses Diagnosis Type 2 diabetes mellitus without complication, without long-term current use of insulin (H) documented in this encounter Care Teams Medical Sonographer Relationship Specialty Start Date End Date Dyan Baca MD [address] [place] [phone] PCP - General Internal Medicine 12/18/18 Dyan Baca MD [address] [place] [id number] Assigned PCP 11/24/18 Robin Rice OD [address] [place] [id number] Ophthalmology 12/28/23 Dyan Baca MD [address] [place] [phone] Referring Physician Internal Medicine 12/28/23 documented as of this encounter
--- OUTSIDE RECORDS SUMMARY | 2024-12-26 12:02 | XMS_ITS | Encounter Summary ---
Author Organization [place] Address [facility] [place] [address] Care Team Providers Care Brass Chaser Name Role Phone Dyan Baca MD Primary Care Provider Dyan Baca MD Unavailable [phone] Robin Rice OD Unavailable [phone] Dyan Baca MD Unavailable Reason for Visit * Reason Comments Medication Refill Encounter Details Date Type Department Care Team (Late Contact Info) Description 09/22/2022 Refill [place] [address] [address] [employer] [facility], [address] [place] [phone] Dyan Baca MD [address] [facility] [address] [place], [place] [id number] Medication Refill Social History Tobacco Use Types [...] on file 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 Gender Identity Not on file Sexual Orientation Not on file 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, 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 Not on file Not on f ile documented as of this encounter Plan of Treatment Upcoming Encounters Date Type Department Care Team (Late st Contact Info) Description 12/28/2024 8:00 AM CDT Office Visit [address], [address] [place] [phone] Dyan Baca MD [address] [place] [id number] documented as of this encounter Visit Diagnoses Diagnosis Diabetic polyneuropathy associated with type 2 diabetes mellitus (H) documented in this encounter Care Teams Brass Chaser Relationship Specialty Start Date End Date Dyan Baca MD [address] [place] [id number] PCP - General Internal Medicine 12/18/18 Dyan Baca MD [address] [place] [id number] Assigned PCP 11/24/18 Robin Rice OD [address] [place] [phone] Ophthalmology 12/28/23 Dyan Baca MD [address] [place] [id number] Referring Physician Internal Medicine 12/28/23 documented as of this encounter
--- OUTSIDE RECORDS SUMMARY | 2024-12-26 12:02 | XMS_ITS | Clinical Summary ---
Author Organization [place] Address [facility] [place] [address] Care Team Providers Care Furniture Designer Name Role Phone Dyan Baca MD Primary Care Provider Dyan Baca MD Unavailable [phone] Robin Rice OD Unavailable Dyan Baca MD Unavailable [phone] Allergies Active Allergy Reactions Criticality Noted Date Comments No Known Allergies 10/08/2019 Medications order for DMEIndications:Hyp erglycemia Equipment being ordered: Other: One Touch Glucometer Treatment Diagnosis: type 2 diabetes mellitus 1 Device 9 Active order for DMEIndications:Pne umonia of left upper lobe due to infectious organism Equipment being ordered: Nebulizer with mask and tubing 1 Device 3 9 Active blood glucose calibration (NO BRAND SPECIFIED) solutionIndication s:Type 2 diabetes mellitus without complication, without long-term current use of insulin (H) To accompany: Blood Glucose Monitor Brands: per insurance. 1 Bottle 3 9 Active aspirin (ASA) 81 MG tabletIndications: Mild CAD Take 1 tablet (81 mg) by mouth daily 30 tablet 0 Active blood glucose monitoring (ACCU-CHEK FASTCLIX) lancetsIndications :Type 2 diabetes mellitus without complication, without long-term current use of insulin (H) 1 each 2 times daily Or as directed. 102 each 3 0 Active alcohol swab prep padsIndications:Ty pe 2 diabetes mellitus without complication, without long-term current use of insulin (H) Use to swab area of injection/lanc e as directed. 100 each 1 1 Active oxymetazoline (MUCINEX NASAL SPRAY FULL FORCE) 0.05 % nasal spray [place] 1-2 sprays into both nostrils daily as needed for congestion Active ipratropium - albuterol 0.5 mg/2.5 mg/3 mL (DUONEB) 0.5-2.5 (3) MG/3ML neb solutionIndication s:Pneumonia of left upper lobe due to infectious organism USE 1 VIAL VIA NEBULIZER EVERY 6 HOURS NEEDED FOR SHORTNESS OF BREATH OR WHEEZING 180 mL 2 2 Active blood glucose (NO BRAND SPECIFIED) lancets standard Use to test blood sugar 2 times daily or as directed. 60 each 3 4 Active rosuvastatin (CRESTOR) 20 MG tabletIndications: Hyperlipidemia LDL goal <100 Take 1 tablet (20 mg) by mouth at bedtime 90 tablet 3 4 Active blood glucose (ACCU-CHEK GUIDE) test stripIndications:T ype 2 diabetes mellitus with hyperglycemia, without long-term current use of insulin (H) USE TO TEST BLOOD SUGARS FOUR TIMES DAILY OR DIRECTED 400 strip 3 4 Active VENTOLIN HFA 108 (90 Base) MCG/ACT inhalerIndications :Seasonal allergic rhinitis, unspecified trigger INHALE 2 PUFFS INTO THE LUNGS EVERY 6 HOURS 18 g 1 4 Active metFORMIN (GLUCOPHAGE) 500 MG tabletIndications: Type 2 diabetes mellitus with hyperglycemia, without long-term current use of insulin (H) TAKE 1 TABLET(500 MG) BY MOUTH TWICE DAILY WITH MEALS 180 tablet 4 Active gabapentin (NEURONTIN) 100 MG capsuleIndications :Diabetic polyneuropathy associated with type 2 diabetes mellitus (H) TAKE 1 CAPSULE(100 MG) BY MOUTH THREE TIMES DAILY 90 capsule 4 Active Active Problems Problem Noted Date Diagnosed Date Acute abdominal pain 07/04/2021 Chest pain 09/26/2019 Abnormal stress test 09/26/2019 Overview (09/27/2019): Added automatically from request for surgery [id number] Diabetes mellitus, type 2 07/13/2019 Acute perforated appendicitis 06/18/2019 Pneumonia, DHEERAJ 12/08/2018 Morbid obesity -- BMI 40.0 12/08/2018 Hyponatremia 12/08/2018 Hyperglycemia 12/08/2018 Elevated blood pressure read ing without diagnosis of hypertension 07/30/2011 09/08/2022 Lumbago 11/03/2002 09/08/2022 Overview (09/08/2022): Pain Low Back Immunizations Immunization Administration Dates Next Due COVID-19 MONOVALENT 12+ (Pfizer) 05/04/2021,12/2020 COVID-19 Monovalent 12+ (Pfizer 2021) 01/13/2022 Influenza Vaccine 18-64 (Flublok) 06/19/2019() Influenza Vaccine >6 months,quad, PF 02/25/2016 TDAP (Adacel,Boostrix) 07/28/2021,11/06/2012 Family History Medical History Relation Comments Cerebrovascular Disease Father Unknown/Adopted Mother 90 yrs old but e strained from family Relation Status Comments Father Mother Social History Tobacco Use Types Packs/Day Years Used Date Smoking Tobacco: Never Smokeless Tobacco: Never Tobacco Cessation:Counseling Given: No Alcohol Use Standard Drinks/Week Comments Not Currently 0 (1 standard drink = 0.6 oz pur e alcohol) None for 10 yrs Social Connection and Isolation Panel [NHANES] A nswer Date Recorded Frequency of Communication with Friends and Fami ly Not on file 12/28/2023 How often do you get together with friends or re latives? Never 12/28/2023 Attends Protestant Services Not on file 12/27 Active Member of Clubs or Organizations Not on f ile 12/28/2023 Attends Club or Organization Meetings Not on janeen e 12/28/2023 Marital Status Not on file 12/28/2023 PHQ-2 Answer Date Recorded PHQ-2 Score 0 12/28/2023 [facility] - Occupational Stress Questionnaire Answer Date Recorded Do you feel stress - tense, restless, nervous, or anxious, or unable to sleep at night because your mind is troubled all the time - these days? Only a little 12/28/2023 Exercise Vital Sign Answer Date Recorde d On average, how many days pe r week do you engage in moderate to strenuous exercise (like a brisk walk)? 5 days 12/28/2023 On average, how many minutes do you engage in exercise at this level? 90 min 12/28/2023 Adolescent Education Answer Date Record ed Getting School Help Needed Not on file 02/18 Food Insecurity Answer Date Recorded Within the past 12 months, d id you worry that your food would run out before you got money to buy more? No 12/28/2023 Within the past 12 months, d id the food you bought just not last and you didn t have money to get more? No 12/28/2023 Housing Stability Answer Date Recorded Do you have housing? (Shola norris is defined as stable permanent housing and does not include staying outside in a car, in a tent, in an abandoned building, in an overnight fdc, or couch-surfing.) Yes 12/28/2023 Are you worried about losing your housing? No 12/28/2023 Financial Resource Strain Answer Date R ecorded Within the past 12 months, h ave you or your family members you live with been unable to get utilities (heat, electricity) when it was really needed? No 12/28/2023 Transportation Needs Answer Date Record ed Within the past 12 months, h as lack of transportation kept you from medical appointments, getting your medicines, non-medical meetings or appointments, work, or from getting things that you need? 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 Not on file Not on f ile Last Filed Vital Signs Vital Sign Reading Time Taken Comments Blood Pressure 155/85 12/28/2023 7:04 AM CDT Pulse 59 12/28/2023 7:04 AM CDT Temperature 36.1 C (96.9 F) 12/28/2023 7:01 AM CDT Respiratory Rate 16 12/28/2023 7:01 AM CDT Oxygen Saturation 97% 12/28/2023 7:01 AM CDT Inhaled Oxygen Concentration - - Weight 112.9 kg (249 lb) 12/28/2023 7:01 AM CDT Height 177.8 cm (5' 10) 12/28/2023 7:01 AM CDT Body Mass Index 35.73 12/28/2023 7:01 AM CDT Plan of Treatment Upcoming Encounters Date Type Department Care Team (Late st Contact Info) Description 12/28/2024 8:00 AM CDT Office Visit [facility] [address] [facility], [address] [place] [address] Dyan Baca MD [address] [place] [id number] Health Maintenance Due Date Last Done Comments CT COLONOGRAPHY 1959 DIABETIC FOOT EXAM 1959 FIT 1959 FLEX SIG 1959 sDNA (Cologuard) 1959 COLONOSCOPY 1969 COLORECTAL CANCER SCREENING 1969 PNEUMOCOCCAL VACCINE 50+ YEARS (1 of 2 - PCV) 1978 ZOSTER VACCINE (1 of 2) 2009 RSV VACCINE (1 - Risk 60-74 years 1-dose series) 2019 BMP 07/14/2023 07/14/2022, 12/2021, 07/06/2021, Additional history exists COVID-19 VACCINE ( season) 2024 01/13/2022, 05/04/2021, 07/29/2020, Additional history exists A1C 03/29/2024 12/28/2023, 06/30, 07/05/2021, Additional history exists PHQ-2 (once per calendar year) 2024 12/28/2023, 01/13/2022, 05/04/2021, Additional history exists ANNUAL REVIEW OF HM ORDERS 12/27/2024 12/28/2023, FALL RISK ASSESSMENT 12/27/2024 12/28/2023 LIPID 12/27/2024 12/28/2023, 07/01, 09/27/2019, Additional history exists MEDICARE ANNUAL WELLNESS VISIT 12/27/2024 12/28/2023 MICROALBUMIN 12/27/2024 12/28/2023, 06/30, 07/25/2020, Additional history exists INFLUENZA VACCINE (#1) 2025 02/25/2016 EYE EXAM 04/11/2025 04/11/2024 ADVANCE CARE PLANNING 12/27/2028 12/28/2023 DTAP/TDAP/TD VACCINE (3 - Td or Tdap) 07/29/2031 07/28/2021, 11/06/2012 HEPATITIS C SCREENING Completed 12/28/2023 HIV SCREENING Completed 12/28/2023 HPV VACCINE (No Doses Required) Completed MENINGITIS VACCINE Aged Out No longer eligible based on patient's age to complete this topic Procedures Procedure Name Priority Date/Time Associated Diagnosis Comments EYE EXAM - HIM SCAN 04/11/2024 1 2:00 AM FINE ARTIST HIV ANTIGEN ANTIBODY COMBO Routine 12/28/2023 7:35 AM CDT Screening for HIV (human immunodeficiency virus) HEPATITIS C SCREEN REFLEX TO HCV RNA QUANT AND GENOTYPE Routine 12/28/2023 7:35 AM CDT Need for hepatitis C screening test ALBUMIN RANDOM URINE QUANTITATIVE Routine 12/28/2023 7:35 AM CDT Type 2 diabetes mellitus with hyperglycemia, without long-term current use of insulin (H) LIPID REFLEX TO DIRECT LDL PANEL Routine 12/28/2023 7:35 AM CDT Hyperlipidemia LDL goal <100 HEMOGLOBIN A1C Routine 12/28/2023 7:35 AM CDT Type 2 diabetes mellitus with hyperglycemia, without long-term current use of insulin (H) COMPREHENSIVE METABOLIC PANEL Routine 07/14/2022 3:16 PM FINE ARTIST Type 2 diabetes mellitus without complication, without long-term current use of insulin (H) from Last 3 Months or Most Recently Relevant to Health Maintenance Results * Eye Exam - HIM Scan (04/11/2024 12:00 AM FINE ARTIST) RETINOPATHY NEGATIVE 04/11/2024 Zaid Burgos - 04/11/2024 12:00 AM FINE ARTIST [facility] Provider Outside OTHER Edited Result - Final * HIV Antigen Antibody Combo (12/28/2023 7:35 AM CDT) HIV Antigen Antibody Combo Nonreactive Nonreactive 12/28/2023 7:24 PM CDT LABORATORY Comment:Negative HIV-1 p24 a ntigen and HIV-1/2 antibody screening test results usually indicate the absence of HIV-1 and HIV-2 infection. However, such negative results do not rule-out acute HIV infection. If acute HIV-1 or HIV-2 infection is suspected, detection of HIV-1 or HIV-2 RNA is recommended. Blood BLOOD SPECIMEN / Unknown Venipuncture / Unknown 12/28/2023 7:35 AM CDT 12/28/2023 7:35 AM CDT Dyan Baca MD LAB - BLOOD ORDERABLES Debi l Result LABORATORY [facility] [address] [facility], [address] [address] * Hepatitis C Screen Reflex to HCV RNA Quant and Genotype (12/28/2023 7:35 AM CDT) Pathologist [facility] Hepatitis C Antibody Nonreactive Nonreactive 12/28/2023 9:19 PM CDT LABORATORY Comment:A nonreactive screen ing test result does not exclude the possibility of exposure to or infection with HCV. Nonreactive screening test results in individuals with prior exposure to HCV may be due to antibody levels below the limit of detection of this assay or lack of reactivity to the HCV antigens used in this assay. Patients with recent HCV infections (<3 months from time of exposure) may have false- negative HCV antibody results due to the time needed for seroconversion (average of 8 to 9 weeks). Blood BLOOD SPECIMEN / Unknown Venipuncture / Unknown 12/28/2023 7:35 AM CDT 12/28/2023 7:35 AM CDT Dyan Baca MD LAB - BLOOD ORDERABLES Debi l Result U LABORATORY [facility] [address] [facility], [address] [address] * Albumin Random Urine Quantitative with Creat Ratio (12/28/2023 7:35 AM CDT) Creatinine Urine mg/dL 100.0 mg/dL 12/28/2023 8:29 PM CDT [facility] LAB[facility]ATORY Comment:The reference ranges have not been established in urine creatinine. The results should be integrated into the clinical context for interpretation. Albumin Urine mg/L <12.0 mg/L 2023 8:29 PM CDT [facility]AT[facility] Comment:The reference ranges have not been established in urine albumin. The results should be integrated into the clinical context for interpretation. Albumin Urine mg/g Cr 12/28/2023 8:29 PM CDT [facility] LAB[facility]AT[facility] Comment: Unable to calculate, urine albumin and/or urine creatinine is outside detectable limits. Microalbuminuria is defined as an albumin:creatinine ratio of 17 to 299 for males and 25 to 299 for females. A ratio of albumin:creatinine of 300 or higher is indicative of overt proteinuria. Due to biologic variability, positive results should be confirmed by a second, first-morning random or 24-hour timed urine specimen. If there is discrepancy, a third specimen is recommended. When 2 out of 3 results are in the microalbuminuria range, this is evidence for incipient nephropathy and warrants increased efforts at glucose control, blood pressure control, and institution of therapy with an bncfujvqycn-agukstyvef-kibwfz (FERNANDO) inhibitor (if the patient can tolerate it). Urine URINE SPECIMEN / Unknown Non-blood Collection / Unknown 12/28/2023 7:35 AM CDT 12/28/2023 7:40 AM CDT Dyan Baca MD LAB - URINE ORDERABLES Debi l Result U LABORATORY [facility] [address] [facility], [address] [place] [id number], [facility] * (ABNORMAL) Lipid panel reflex to direct LDL Non-fasting (12/28/2023 7:35 AM CDT) Cholesterol 177 <200 mg/dL 12/28/2023 6:50 PM CDT [facility] LAB[facility]AT[facility] Triglycerides 134 <150 mg/dL 12/28/2023 6:50 PM CDT [facility] LAB[facility] Direct Measure HDL 42 >=40 mg/dL 12/28/2023 6:50 PM CDT [facility] LDL Cholesterol Calculated 108(H) <=100 mg/dL 12/28/2023 6:50 PM CDT [facility] LAB[facility] Non HDL Cholesterol 135(H) <130 mg/dL 12/28/2023 6:50 PM CDT [facility] LAB[facility] Patient Fasting > 8hrs? Yes 12/28/2023 6:50 PM CDT [facility] LAB[facility] Blood BLOOD SPECIMEN / Unknown Venipuncture / Unknown 12/28/2023 7:35 AM CDT 12/28/2023 7:35 AM CDT Narrative [facility] LAB[facility] - 12/28/2023 6:50 PM CDT Cholesterol Desirable: <200 mg/dL Triglycerides Normal: Less than 150 mg/dL Borderline High: 150-199 mg/dL High: 200-499 mg/dL Very High: Greater than or equal to 500 mg/dL Direct Measure HDL Female: Greater than or equal to 50 mg/dL Male: Greater than or equal to 40 mg/dL LDL Cholesterol Desirable: <100mg/dL Above Desirable: 100-129 mg/dL Borderline High: 130-159 mg/dL High: 160-189 mg/dL Very High: >= 190 mg/dL Non HDL Cholesterol Desirable: 130 mg/dL Above Desirable: 130-159 mg/dL Borderline High: 160-189 mg/dL High: 190-219 mg/dL Very High: Greater than or equal to 220 mg/dL us Dyan Baca MD LAB - BLOOD ORDERABLES Debi l Result UU LABORATORY [facility] [address] [facility], [address] [place] [address], [facility] * (ABNORMAL) HEMOGLOBIN A1C (12/28/2023 7:35 AM CDT) Hemoglobin A1C 7.1(H) 0.0 - 5.6 % 12/28/2023 7:44 AM CDT CS LABORATORY Comment: Normal <5.7% Prediabetes 5.7-6.4% Diabetes 6.5% or higher Note: Adopted from ADA consensus guidelines. Blood BLOOD SPECIMEN / Unknown Venipuncture / Unknown 12/28/2023 7:35 AM CDT 12/28/2023 7:35 AM CDT Dyan Baca MD LAB - BLOOD ORDERABLES Debi l Result CS LABORATORY [facility] [address] [facility], [address] [place] [address], [facility] [phone] * (ABNORMAL) Comprehensive metabolic panel (07/14/2022 3:16 PM FINE ARTIST) Sodium 143 136 - 145 mmol/L 07/14/2022 8:12 PM FINE ARTIST [facility] LAB[facility] Potassium 3.7 3.4 - 5.3 mmol/L 07/14/2022 8:12 PM FINE ARTIST [facility] LAB[facility] Chloride 105 98 - 107 mmol/L 07/14/2022 8:12 PM FINE ARTIST [facility] LAB[facility] Carbon Dioxide (CO2) 26 22 - 29 mmol/L 07/14/2022 8:12 PM FINE ARTIST [facility] LAB[facility] Anion Gap 12 7 - 15 mmol/L 07/14/2022 8:12 PM FINE ARTIST [facility] Urea Nitrogen 13.8 8.0 - 23.0 mg/dL 07/14/2022 8:12 PM FINE ARTIST [facility] Creatinine 0.77 0.67 - 1.17 mg/dL 07/14/2022 8:12 PM FINE ARTIST [facility] Calcium 9.6 8.8 - 10.2 mg/dL 07/14/2022 8:12 PM FINE ARTIST [facility] Glucose 157(H) 70 - 99 mg/dL 07/14/2022 8:12 PM FINE ARTIST [facility] Alkaline Phosphatase 78 40 - 129 U/L 07/14/2022 8:12 PM FINE ARTIST [facility] AST 15 10 - 50 U/L 07/14/2022 8:12 PM FINE ARTIST [facility] ALT 11 10 - 50 U/L 07/14/2022 8:12 PM FINE ARTIST [facility] Protein Total 7.0 6.4 - 8.3 g/dL 07/14/2022 8:12 PM FINE ARTIST [facility] Albumin 4.0 3.5 - 5.2 g/dL 07/14/2022 8:12 PM FINE ARTIST [facility] Bilirubin Total 0.4 <=1.2 mg/dL 07/14/2022 8:12 PM FINE ARTIST [facility] GFR Estimate >90 >60 mL/min/1.7 3m2 07/14/2022 8:12 PM FINE ARTIST [facility] LAB[facility] Comment:eGFR calculated usin 2020 CKD-EPI equation. Blood STRUCTURE OF RIGHT UPPER LIMB / Unknown Venipuncture / Unknown 07/14/2022 3:16 PM FINE ARTIST 07/14/2022 3:16 PM FINE ARTIST us Kassie Schroeder MD LAB - BLOOD ORDERABLES Final Res ult UU LABORATORY [facility] [address] [facility], [address] [place] [address], [facility] [phone] from Last 3 Months or Most Recently Relevant to Health Maintenance Insurance [facility] * Guarantor: Rodo Givens Account Type Relation to Patient Date of Phone Billing Address Medication Therapy Self 1960 [id number] [place] [address] [place] [id number] Advance Directives For more information, please contact: [phone] * Full Code (Latest Code Status on File) Date Activated Date Inactivated Comments 07/04/2021 10:27 PM 07/07/2021 7:43 PM All basic and advanced life-sustaining interventions are performed as appropriate Question Answer Comments Code status determined by: Unable to dis cuss and no AD/POLST on file; continue PREVIOUSLY ORDERED code status * Full Code Date Activated Date Inactivated Comments 09/26/2019 5:08 PM 09/28/2019 2:07 PM Question Answer Comments Code status determined by: Discussion with patie nt/legal decision maker * DNR Date Activated Date Inactivated Comments 06/24/2019 9:52 AM 06/29/2019 8:11 AM Question Answer Comments Code status determined by: Discussion with patie nt/legal decision maker * DNR Date Activated Date Inactivated Comments 06/18/2019 12:53 AM 06/24/2019 9:52 AM Okay for a time-limited trial of intubation for reversible causes Question Answer Comments Code status determined by: Discussion with patie nt/legal decision maker * Full Code Date Activated Date Inactivated Comments 12/08/2018 11:53 PM 12/11/2018 4:20 PM Question Answer Comments Code status determined by: Discussion with patie nt/legal decision maker Care Teams Furniture Designer Relationship Specialty Start Date End Date Dyan Baca MD [address] [place] [address] PCP - General Internal Medicine 12/18/18 Dyan Baca MD [address] [facility] [address] [place] [address] Assigned PCP 11/24/18 Robin Rice OD [address] [place] [id number] MD Ophthalmology 12/28/23 Dyan Baca MD [address] [facility] [address] [place] [address] Referring Physician Internal Medicine 12/28/23
--- OUTSIDE RECORDS SUMMARY | 2024-12-26 12:02 | XMS_ITS | Encounter Summary ---
Author Organization [place] Address [address] [facility] [place] [address] Care Team Providers Care Last Repairer Name Role Phone Dyan Baca MD Primary Care Provider Dyan Baca MD Unavailable Ta Shetty MD Unavailable [phone] Duong Carrizales MD Unavailable Unavailabl oRbin Salcedo OD Unavailable Dyan Baca MD Unavailable Reason for Visit * Reason Comments Medication Refill Encounter Details Date Type Department Care Team (Late st Contact Info) Description 02/13/2020 Refill [facility] [address] [place] [address], [address] [place] [address] Dyan Baca MD [address] [facility] [address] [place], [place] [id number] Medication Refill Social History Tobacco Use Types Packs/Day Years Used Date Smoking Tobacco: Never Smokeless Tobacco: Never Alcohol Use Standard Drinks/Week Comments Not Currently 0 (1 standard drink = 0.6 oz pur e alcohol) None for 10 yrs PHQ-2 Answer Date Recorded PHQ-2 Score 0 07/13/2019 Sex and Gender Information Value Date Recorded Sex Assigned at Not on file 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 Gender Identity Not on file Sexual Orientation Not on file 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, 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 Not on file Not on f ile documented as of this encounter Plan of Treatment Upcoming Encounters Date Type Department Care Team (Late st Contact Info) Description 12/28/2024 8:00 AM CDT Office Visit [facility] [address] [facility], [address] [place] [phone] Dyan Baca MD [address] [place] [id number] documented as of this encounter Visit Diagnoses Diagnosis Type 2 diabetes mellitus without complication, without long-term current use of insulin (H) documented in this encounter Care Teams Last Repairer Relationship Specialty Start Date End Date Dyan Baca MD [address] [place] [id number] PCP - General Internal Medicine 12/18/18 Dyan Baca MD [address] [place] [id number] Assigned PCP 11/24/18 Ta Shetty MD [address] [place] [id number] Assigned Surgical Provider 03/21/20 01/17/21 Duong Carrizales MD Assigned Heart and Vascular Provider 03/21/20 03/28/21 Robin Rice OD [address] [place] [id number] Ophthalmology 12/28/23 Dyan Baca MD [address] [place] [address] Referring Physician Internal Medicine 12/28/23 documented as of this encounter
[2024-12-26 12:05] VITALS: BP 127/92; PULSE 100; RESP 18; TEMP 36.2; O2SAT 96; BMI 31.0
--- NOTE | 2024-12-26 12:15 | ED.GENADULT ---
HPI - General Adult General Date Seen: 12/26/24 Chief complaint: Abdominal Pain Stated complaint: abdominal pain Time Seen by Provider: 12/26/24 12:06 History of Present Illness HPI narrative: 64-year-old male presenting to the ER today with a 2 month history of frequent watery yellow/south color diarrhea, abdominal bloating, poor appetite, nausea, with a 20-30 lb weight loss. History is obtained from the patient. He has a little bit of a vague historian so it is difficult to get a clear sense of what is past surgical history is. He says he had diverticulitis about 30 years ago and then talks about having tubes put in with seeing the yellow bile coming out of his intestine. On his abdominal exam he has a large midline incision and a scar in his left abdomen. It looks like he probably had a partial colectomy and an ostomy. He also had an ostomy takedown. It also sounds like he had appendicitis about 5 years ago and apparently was perforated and he had an abscess and had IR drainage. Unclear if he ever had appendectomy. He also has a midline abdominal lump that is probably an incisional hernia but it is far as I can tell he has never had hernia surgery before.. He also reports that he has a history of diabetes and that he follows with a doctor at [facility] for that. He has not been taking prescribed metformin for about 5 years. Instead he takes cinnamon and Coumadin and manage his diabetes with medicines. His A1c is apparently 1 point above goal he says he likes to treat his body naturally as much as possible. He says his symptoms started in early October. He had apparently bought an ice cream sandwich that he thought might have been out to date. After that he started developing diarrhea. It has been initially watery and for the past several weeks had been south colored and now is fairly bright yellow. No blood or mucus in his stool. He says he has diarrhea about every hour every day for the past couple of months. He also apparently you was in [facility] in late October and got a median she has tray that may have been . Since then he has also been having bloating. He feels like his abdomen which had previously been flat is now bloated. His pants do not fit any more. Although his abdomen is bloated he has actually lost 20-30 lb over the past couple of months. He is nauseous. Says whenever he eats or drinks he gets a lot of gurgling in his intestine. He has not had a fever but has had some chills. Although his primary care through the [facility] system and his previous surgeries and hospitalizations were done at [facility], although he does not have a surgeon here in [place], he came here to the ER in [place] because ?we treated him nicely? last year when he had COVID. He came to the ER today because he is just sick of having symptoms. There is no particular sudden worsening of his symptoms. He has not yet had any checkup with his doctors. No recent labs or endoscopy. He has no known history of liver disease. He does not drink alcohol. He denies drugs. No abdominal trauma. According to records through [facility] care link... Has not seen [facility] before. His primary care is Dr. Baca, family practice through [facility]. I am able to see that he had a hospitalization in June 2019 for acute perforated appendicitis. Apparently at that time he was also on insulin for his diabetes. Unfortunately, I am not able to open any records to actually see what happened during the hospitalization. It also looks like he had an abnormal stress test in August 2019... Unfortunately most of the records from the [facility] system are not reviewable Related Data Home Medications ?Medication ?Instructions ?Recorded ?Confirmed albuterol sulfate 90 mcg/actuation g inhalation 04/01/22 04/01/22 aerosol inhaler (Ventolin HFA) Held on 12/26/24. Instructions: per patient blood sugar diagnostic (Accu-Chek #10 ea 04/01/22 04/01/22 Guide test strips) gabapentin 100 mg capsule 100 mg PO 04/01/22 04/01/22 Held on 12/26/24. Instructions: per patient metformin 500 mg tablet 500 mg PO 04/01/22 04/01/22 Held on 12/26/24. Instructions: per patient rosuvastatin 20 mg tablet 20 mg PO 04/01/22 04/01/22 Held on 12/26/24. Instructions: per patient Previous Rx's ?Medication ?Instructions ?Recorded benzonatate 100 mg capsule 100 mg PO BID-TID PRN cough #14 04/01/22 Held on 12/26/24. caps Instructions: per patient ketorolac 0.5 % eye drops (Acular) 1 drp ophthalmic (eye) QID #5 mL 03/25/24 Held on 12/26/24. Instructions: per patient polymyxin B sulfate 10,000 1 drp ophthalmic (eye) Q3H 7 days 03/25/24 unit-trimethoprim 1 mg/mL eye drops #10 mL Held on 12/26/24. Instructions: per patient Allergies Allergy/AdvReac Type Severity Reaction Status Date / Time No Known Drug Allergies Allergy Verified 12/26/24 12:13 [facility] Social History Smoking Status: Never smoker How often do you have a drink containing alcohol: never AUDIT-C Alcohol total score: 0 Non-prescribed substance use: denies use Exam Narrative: Exam Narrative: Constitutional: Appears well-developed and well-nourished. Alert. Conversant but very disjointed historian. Often times will rapidly change topics from talking about his current symptoms such as diarrhea and then talk about his previous surgery from 20 years ago. (...He apparently had some postop complications from the surgery [place] on that may have left a needle inside. He has also had several surgeries at [facility]... He also says that he has had chronic numbness affecting his groin and proximal thighs ever since he had his perforated appendicitis 5 years ago. He attributes the chronic numbness to some sort of complication from needles that his doctors were sticking into his abdomen...) HENT: Head: Atraumatic. Nose: Nose normal. Mouth/Throat: Oral mucosa is clear but dry. Not desiccated or cracked. no trismus. Pharynx normal. Tonsils symmetric. No tonsillar enlargement, erythema, or exudate. Eyes: Conjunctivae normal. EOM normal. Pupils equal, round, and reactive to light. No scleral icterus. Neck: Normal range of motion. Neck supple. No tracheal deviation present. No JVD Cardiovascular: Heart rate in the high 90s, regular rhythm. No gallop. No friction rub. No murmur heard. Symmetric radial artery pulses Pulmonary/Chest: Effort normal. No stridor. No respiratory distress. No wheezes. No rales. No rhonchi . No tenderness. Abdominal: Abdomen is protuberant, distended, tympanic. Diffusely tender but no guarding or rebound. Long midline incision. Just superior to the umbilicus there is what I think is either a ventral or incisional hernia. It is soft and easily reduced. No evidence for incarceration. I do not see any inguinal hernias. He has a scar in his left mid abdomen which is apparently from his previous ostomy. Abdomen is more tender in the left lower quadrant and right lower quadrant that is in the upper abdomen. I do not see any spider angiomas or other stigmata of liver disease. Musculoskeletal: RUE: Normal range of motion. No tenderness. No deformity LUE: Normal range of motion. No tenderness. No deformity RLE: Normal range of motion. No edema. No tenderness. No deformity LLE: Normal range of motion. No edema. No tenderness. No deformity Neurological: Alert and oriented to person, place, and time. Normal strength. CN II-VII intact. No sensory deficit. GCS eye subscore is 4. GCS verbal subscore is 5. GCS motor subscore is 6. Normal coordination Skin: Skin is warm and dry. No rash noted. No pallor. Normal capillary refill. No jaundice Psychiatric: Normal mood . somewhat anxious. Const: Vital Signs, click to edit/add: Vital Signs - 24 hr 12/26/24 12:05 12/26/24 14:49 Temperature 97.1 F L Pulse Rate [Pulse Oximeter] 100 80 Respiratory Rate 18 18 Blood Pressure [Le ft Upper Arm] 127/92 H 132/79 Pulse Oximetry 96 98 Oxygen Delivery Me thod Room Air Room Air Course Vital Signs Vital signs: Initial Vital Signs Temperature 97.1 F L 12/26/24 12:05 Temperature Source Temporal Artery Scan 12/26/24 12:05 Pulse Rate 100 12/26/24 12:05 Respiratory Rate 18 12/26/24 12:05 Blood Pressure 127/92 H 12/26/24 12:05 Blood Pressure Mean 103 12/26/24 12:05 Blood Pressure Position Sitting 12/26/24 12:05 Pulse Oximetry 96 12/26/24 12:05 Oxygen Delivery Method Room Air 12/26/24 12:05 Vital Signs Temperature 97.1 F L 12/26/24 12:05 Pulse Rate 100 12/26/24 12:05 Respiratory Rate 18 12/26/24 12:05 Blood Pressure 127/92 H 12/26/24 12:05 Pulse Oximetry 96 12/26/24 12:05 Oxygen Delivery Method Room Air 12/26/24 12:05 Temperature 97.1 F L 12/26/24 12:05 Pulse Rate 80 12/26/24 14:49 Respiratory Rate 18 12/26/24 14:49 Blood Pressure 132/79 12/26/24 14:49 Pulse Oximetry 98 12/26/24 14:49 Oxygen Delivery Method Room Air 12/26/24 14:49 Medications Administered Medications: Generic Name Dose Route Start Last Admin Trade Name Freq PRN Reason Stop Dose Admin Hydromorphone HCl 0.5 mg 12/26/24 14:45 12/26/24 14:54 Hydromorphone 0.5 Mg/0.5 Ml Inj IVP 0.5 mg Q1H PRN Administration Pain Discontinued Medications Generic Name Dose Route Start Last Admin Trade Name Freq PRN Reason Stop Dose Admin Ondansetron HCl 4 mg 12/26/24 14:45 12/26/24 14:54 Ondansetron 2 Mg/Ml Inj IVP 12/26/24 14:46 4 mg ONCE ONE Administration Medical Decision Making MDM Narrative Medical decision making narrative: 64-year-old gentleman presenting to the ER today with reported 2 month history of frequent watery a I had diarrhea and abdominal bloating. He says his symptoms are not really worse today or yesterday but just are not getting better so he decided to come in here. He does have a previous abdominal surgical history which apparently includes bowel resection for diverticulitis with ostomy, subsequent ostomy takedown, history of perforated appendicitis with what sounds like a percutaneous abscess drainage. Unclear if he ever underwent appendectomy or not. Differential here for his abdominal bloating would include bowel obstruction since he is distended and tympanic on exam as well as liver failure with developing ascites, liver mass, biliary obstruction, pancreatitis, GI perforation abscess formation, tumors, GI infection such as C diff or chronic infection, inflammatory bowel disease, among others. Workup in the ER shows a white count of 9.1 with 72% neutrophils, 18% lymphocytes. Normal hemoglobin at 15.2. Platelet count 318. Metabolic profile shows mild hypokalemia with a potassium of 3.3. Supplemented. Kidney function is normal. Liver functions are essentially normal except for AST of 46. Lipase is normal. VL is normal Blood sugars 138 today. Abdomen/pelvis CT is concerning for acute mechanical small-bowel obstruction with associated pneumatosis intestinalis. I received a phone call from radiology to review the CT reports. Upon discovering the CT findings, we did place a phone call to our general surgeon, Dr. Smyth. At the time of our initial phone call, sSblas was in the OR finishing of the case and planned to call me back in about 10 minutes. Request NG placement. This was ordered and placed. My review the patient's x-ray does confirm that the tip of the tube is in the gastric lumen. Will place the tube to suction. Dr. Smyth came to the ER and she evaluated the patient herself. She agrees the NG tube is in position. After hearing the HPI herself and doing her own exam she feels the patient is appropriate for admission here with NG tube decompression and observation. No need for immediate surgery but potentially may need an operation if this fails to resolve. Discussed with our hospitalist, Dr. Evans. She accepts for admission. Lab Data Labs: Lab Results 12/26/24 12/26/24 Range/Units 12:39 14:25 WBC 9.18 (4.50-11.00) K/uL RBC 5.52 (4.30-5.90) m/uL Hgb 15.2 (13.5-17.5) gm/dL Hct 46.3 (37.0-53.0) % MCV 84 (80-100) fL MCH 28 (26-34) pg MCHC 33 (32-36) gm/dL RDW Coeff of Amy 14.9 (11.5-15.5) % Plt Count 318 (140-440) K/uL Neut % (Auto) 72.1 H (42.0-72.0) % Lymph % (Auto) 17.8 L (20-44) % Jessamine % (Auto) 7.8 (0.0-11.0) % Eos % (Auto) 1.9 (0.0-7.0) % Baso % (Auto) 0.2 (0.0-3.0) % Neut # (Auto) 6.60 (1.7-7.0) K/uL Lymph # (Auto) 1.60 (0.90-2.90) K/uL Jessamine # (Auto) 0.70 (0.00-0.90) K/UL Eos # (Auto) 0.17 (0.00-0.50) K/uL Baso # (Auto) 0.02 (0.00-0.30) K/uL Abs Immat Gran (auto) 0.02 (0.00-0.30) K/uL Imm/Tot Granulo (auto) 0.2 % Sodium 137 (135-149) mmol/L Potassium 3.3 L (3.6-5.1) mmol/L Chloride 101 (96-114) mmol/L Carbon Dioxide 29 (20-32) mmol/L Anion Gap 7 (7-15) mEq/L BUN 19 (7-30) mg/dL Creatinine 0.9 (0.5-1.5) mg/dL Estimated Creat Clear 73.65 Estimated GFR 95 ml/min Glucose 138 H (60-115) mg/dL Lactate 1.0 (0.5-1.9) mmol/L Calcium 8.8 (8.4-10.6) mg/dL Total Bilirubin 0.7 (0.1-1.5) mg/dL Direct Bilirubin 0.2 (0.0-0.5) mg/dL AST 46 H (12-35) U/L ALT 33 (4-50) U/L Alkaline Phosphatase 102 (40-150) U/L Total Protein 6.7 (6.0-8.3) g/dL Albumin 3.5 (3.3-5.0) g/dL Lipase 23 (23-300) U/L Imaging Data CT scan - abdomen: Attestation: I have reviewed the pertinent imaging results. Radiologist's impression: Findings: Lower thorax: Trace bibasilar atelectasis. Abdomen/pelvis: Severe hepatic steatosis. No suspicious hepatic lesions. The gallbladder and biliary system are unremarkable. Subcentimeter hypoattenuating lesion in the spleen, likely a small benign cyst/hemangioma. The pancreas is unremarkable. No adrenal nodules. The kidneys are normal in size and perfused in a normal fashion. No suspicious enhancing renal masses or lesions. Simple appearing cyst at the interpolar region of the left kidney. Bilateral nonobstructing renal calculi. No hydroureteronephrosis. The bladder is unremarkable. Mild prostatomegaly with mass effect on the bladder. High-grade mechanical small bowel obstruction with numerous loops of dilated small bowel throughout the abdomen and pelvis, measuring up to approximately 8 millimeters in diameter with questionable pneumatosis intestinalis associated with a few dilated loops of small bowel. Transition point at the terminal ileum approximately 6 centimeter from the ileocecal valve (series number 2, image [id number]). The colon is relatively decompressed. No free air, free fluid, or fluid collections. No abdominopelvic lymphadenopathy. The vasculature is unremarkable. Soft tissue/musculoskeletal: Diastasis recti with several ventral abdominal wall hernias containing fat and a few loops of small bowel. Small fat containing inguinal hernias. No acute fracture or malalignment. Degenerative changes of the spine. No suspicious osseous lesions. Impression: 1. High-grade mechanical small bowel obstruction with transition point at the terminal ileum with questionable developing pneumatosis intestinalis. No free air or free fluid. Recommend consultation with surgery. 2. Additional incidental findings as detailed above. Discharge Plan Discharge Clinical Impression: Small bowel obstruction Patient Disposition: Admitted As Observation
--- NOTE | 2024-12-26 12:18 | CRLHL7_ITS ---
For Patients: As a result of the Century Cures Act, medical imaging exams and procedure reports are released immediately into your electronic medical record. You may view this report before your referring provider. If you have questions, please contact your health care provider. Indication: ABDOMEN PAIN ,DIAHHRAA BLAOTING, WEIGHT LOST 20 LBS Technique: CT abdomen/pelvis with IV contrast utilizing 100 mL Isovue 370 Comparison: None Findings: Lower thorax: Trace bibasilar atelectasis. Abdomen/pelvis: Severe hepatic steatosis. No suspicious hepatic lesions. The gallbladder and biliary system are unremarkable. Subcentimeter hypoattenuating lesion in the spleen, likely a small benign cyst/hemangioma. The pancreas is unremarkable. No adrenal nodules. The kidneys are normal in size and perfused in a normal fashion. No suspicious enhancing renal masses or lesions. Simple appearing cyst at the interpolar region of the left kidney. Bilateral nonobstructing renal calculi. No hydroureteronephrosis. The bladder is unremarkable. Mild prostatomegaly with mass effect on the bladder. High-grade mechanical small bowel obstruction with numerous loops of dilated small bowel throughout the abdomen and pelvis, measuring up to approximately 8 millimeters in diameter with questionable pneumatosis intestinalis associated with a few dilated loops of small bowel. Transition point at the terminal ileum approximately 6 centimeter from the ileocecal valve (series number 2, image [id number]). The colon is relatively decompressed. No free air, free fluid, or fluid collections. No abdominopelvic lymphadenopathy. The vasculature is unremarkable. Soft tissue/musculoskeletal: Diastasis recti with several ventral abdominal wall hernias containing fat and a few loops of small bowel. Small fat containing inguinal hernias. No acute fracture or malalignment. Degenerative changes of the spine. No suspicious osseous lesions. Impression: 1. High-grade mechanical small bowel obstruction with transition point at the terminal ileum with questionable developing pneumatosis intestinalis. No free air or free fluid. Recommend consultation with surgery. 2. Additional incidental findings as detailed above. Please note that all CT scans at this facility use dose modulation, iterative reconstruction, and/or weight-based dosing when appropriate to reduce radiation dose to as low as reasonably achievable. Dictated by Edmundo Rodriguez MD @ 12/26/2024 1:55:51 PM (Electronically Signed)
[2024-12-26 12:48] LABS: Hematocrit 46.3 % (37.0-53.0); Hemoglobin* 15.2 gm/dL (13.5-17.5); Immature Granulocytes Abs Auto 0.02 K/uL (0.00-0.30); Immature Granulocytes Pct Auto 0.2 %; Mean Corpuscular HGB Conc 33 gm/dL (32-36); Mean Corpuscular Hemoglobin 28 pg (26-34); Mean Corpuscular Volume 84 fL (80-100); RDW Coefficient of Variation % 14.9 % (11.5-15.5); Red Blood Count 5.52 m/uL (4.30-5.90); White Blood Count* 9.18 K/uL (4.50-11.00)
[2024-12-26 12:55] LABS: Lymphocytes Absolute Auto 1.60 K/uL (0.90-2.90); Slide Review Reflex No
[2024-12-26 13:04] LABS: Albumin* 3.5 g/dL (3.3-5.0); Chloride* 101 mmol/L (96-114); Potassium* 3.3 mmol/L (3.6-5.1); Sodium* 137 mmol/L (135-149)
[2024-12-26 13:07] LABS: Alanine Aminotransferase* 33 U/L (4-50); Alkaline Phosphatase* 102 U/L (40-150); Anion Gap 7 mEq/L (7-15); Aspartate Amino Transferase* 46 U/L (12-35); Bilirubin Direct* 0.2 mg/dL (0.0-0.5); Bilirubin Total* 0.7 mg/dL (0.1-1.5); Blood Urea Nitrogen* 19 mg/dL (7-30); Calcium* 8.8 mg/dL (8.4-10.6); Carbon Dioxide* 29 mmol/L (20-32); Creatinine* 0.9 mg/dL (0.5-1.5); Est. Creatinine Clearance* 73.65; Estimated Glomerular Filt Rate 95 ml/min; Glucose* 138 mg/dL (60-115); Total Protein* 6.7 g/dL (6.0-8.3)
--- NOTE | 2024-12-26 14:38 | PM.GSCN ---
History of Present Illness Consult details Date Seen: 12/26/24 Consult date: 12/26/24 Narrative: Patient presents with worsening abdominal pain, bloating and chronic diarrhea. He has had symptoms for the last 2 months. He has been having frequent, watery diarrhea. He last had a large bowel movement yesterday, nothing today. He reports that he last passed gas a week ago. Overall he has had a decrease in appetite and felt very bloated. He reports a 20-30 lb weight loss that was unintentional. Some reported nausea, no emesis. He initially thought that he had food poisoning, but because his symptoms have been persistent and now getting worse he came in worried that he might need surgery. He has never had a colonoscopy before. His surgical history is positive for a sigmoidectomy secondary to diverticulitis. It sounds like he had a partial colectomy and end ostomy, followed by an ostomy takedown. He also reports a perforated appendicitis, managed with drainage. His medical history is positive for diabetes, which patient states he controls with cinnamon. Review of Systems Status of ROS: Reports: 10 or more systems reviewed and unremarkable except as noted in History and below [facility] Social History Smoking Status: Never smoker How often do you have a drink containing alcohol: never AUDIT-C Alcohol total score: 0 Non-prescribed substance use: denies use Meds Home Medications and Allergies Home Medications ?Medication ?Instructions ?Recorded ?Confirmed ?Type albuterol sulfate 90 mcg/actuation g inhalation 04/01/22 04/01/22 History aerosol inhaler (Ventolin HFA) Held on 12/26/24. Instructions: per patient benzonatate 100 mg capsule 100 mg PO BID-TID PRN cough #14 04/01/22 12/26/24 Rx Held on 12/26/24. caps Instructions: per patient blood sugar diagnostic (Accu-Chek #10 ea 04/01/22 04/01/22 History Guide test strips) gabapentin 100 mg capsule 100 mg PO 04/01/22 04/01/22 History Held on 12/26/24. Instructions: per patient metformin 500 mg tablet 500 mg PO 04/01/22 04/01/22 History Held on 12/26/24. Instructions: per patient rosuvastatin 20 mg tablet 20 mg PO 04/01/22 04/01/22 History Held on 12/26/24. Instructions: per patient ketorolac 0.5 % eye drops (Acular) 1 drp ophthalmic (eye) QID #5 mL 03/25/24 12/26/24 Rx Held on 12/26/24. Instructions: per patient polymyxin B sulfate 10,000 1 drp ophthalmic (eye) Q3H 7 days 03/25/24 12/26/24 Rx unit-trimethoprim 1 mg/mL eye drops #10 mL Held on 12/26/24. Instructions: per patient Allergies Allergy/AdvReac Type Severity Reaction Status Date / Time No Known Drug Allergies Allergy Verified 12/26/24 12:13 Exam Narrative: Exam Narrative: General: Alert and oriented, nontoxic Respiratory: Equal breath rise bilaterally, maintained on room air CV: Well perfused, no tachycardia Abdomen: Distended, soft. Tympanic abdomen. Well-healed midline incision and left-sided ostomy site. I am able to palpate multiple ventral hernias, which are easily reducible. Bowel sounds present. Const: Vital Signs, click to edit/add: Vital Signs - 24 hr 12/26/24 12:05 Temperature 97.1 F L Pulse Rate [Pulse Oximeter] 100 Respiratory Rate 18 Blood Pressure [Le ft Upper Arm] 127/92 H Pulse Oximetry 96 Oxygen Delivery Me thod Room Air Results Labs Labs: Abnormal lab results 12/26/24 Range/Units 12:39 Neut % (Auto) 72.1 H (42.0-72.0) % Lymph % (Auto) 17.8 L (20-44) % Potassium 3.3 L (3.6-5.1) mmol/L Glucose 138 H (60-115) mg/dL AST 46 H (12-35) U/L Diabetes panel 12/26/24 Range/Units 12:39 Sodium 137 (135-149) mmol/L Potassium 3.3 L (3.6-5.1) mmol/L Chloride 101 (96-114) mmol/L Carbon Dioxide 29 (20-32) mmol/L BUN 19 (7-30) mg/dL Creatinine 0.9 (0.5-1.5) mg/dL Glucose 138 H (60-115) mg/dL Calcium 8.8 (8.4-10.6) mg/dL AST 46 H (12-35) U/L ALT 33 (4-50) U/L Alkaline Phosphatase 102 (40-150) U/L Total Protein 6.7 (6.0-8.3) g/dL Albumin 3.5 (3.3-5.0) g/dL Calcium panel 12/26/24 Range/Units 12:39 Calcium 8.8 (8.4-10.6) mg/dL Albumin 3.5 (3.3-5.0) g/dL Pituitary panel 12/26/24 Range/Units 12:39 Sodium 137 (135-149) mmol/L Potassium 3.3 L (3.6-5.1) mmol/L Chloride 101 (96-114) mmol/L Carbon Dioxide 29 (20-32) mmol/L BUN 19 (7-30) mg/dL Creatinine 0.9 (0.5-1.5) mg/dL Glucose 138 H (60-115) mg/dL Calcium 8.8 (8.4-10.6) mg/dL Adrenal panel 12/26/24 Range/Units 12:39 Sodium 137 (135-149) mmol/L Potassium 3.3 L (3.6-5.1) mmol/L Chloride 101 (96-114) mmol/L Carbon Dioxide 29 (20-32) mmol/L BUN 19 (7-30) mg/dL Creatinine 0.9 (0.5-1.5) mg/dL Glucose 138 H (60-115) mg/dL Calcium 8.8 (8.4-10.6) mg/dL Total Bilirubin 0.7 (0.1-1.5) mg/dL AST 46 H (12-35) U/L ALT 33 (4-50) U/L Alkaline Phosphatase 102 (40-150) U/L Total Protein 6.7 (6.0-8.3) g/dL Albumin 3.5 (3.3-5.0) g/dL All other labs normal. Imaging Abdomen CT scan report/results: report reviewed and image reviewed Progress Note:A&P Assessment and plan (1) Small bowel obstruction: Status: Acute Assessment and Plan: Patient presents with a two-month history of increasing abdominal distension, weight loss and diarrhea. Workup was obtained with evidence on CT imaging of a high-grade small-bowel obstruction. I reviewed the images myself, he has significant dilation of the small bowel measuring up to 8 cm. Radiology notes questionable developing pneumatosis of the small bowel wall. No free air or free fluid seen. Transition point seen by the terminal ileum, with the entire colon being decompressed. Patient does report a history of perforated appendicitis and associated abscess, making obstruction secondary to adhesions likely, however it is unusual that the patient has been having chronic symptoms for the last 2 months. This makes me suspicious for a chronic partial obstruction versus a mass/cancer as the etiology. Vital signs stable and exam is reassuring. On labs he has no leukocytosis, lactate is pending. He is at risk for needing to go to the operating room, but I am recommending conservative management at this time with placement of an NG tube and bowel rest. Plan -NPO, IV fluids -NG tube to low intermittent suction -encourage ambulation -hospitalist to admit, will continue to follow patient closely. Please call General surgery with any acute clinical changes
[2024-12-26 14:49] VITALS: BP 132/79; PULSE 80; RESP 18; O2SAT 98
[2024-12-26] MEDS: ONDANSETRON 2 MG/ML inj 4 MG IVP (14:54)
--- NOTE | 2024-12-26 15:06 | CRLHL7_ITS ---
For Patients: As a result of the Century Cures Act, medical imaging exams and procedure reports are released immediately into your electronic medical record. You may view this report before your referring provider. If you have questions, please contact your health care provider. Indication: NG tube placement, bowel obstruction Technique: Supine view abdomen was obtained. Comparison: CT abdomen and pelvis December 26, 2024 Findings: Nasogastric tube with the tip in the gastric lumen. The side port remains at the gastroesophageal junction, consider advancement 2-3 centimeters into the distal gastric lumen. Persistent obstructive bowel gas pattern. Impression: Nasogastric tube within the gastric lumen. The side port is at the gastroesophageal junction. Recommend advancement 2-3 centimeters into the distal gastric lumen for more optimal positioning. Stable obstructive changes. Dictated by Anil Cramer MD @ 12/26/2024 3:52:43 PM (Electronically Signed)
[2024-12-26 15:31] LABS: Lactate* 1.0 mmol/L (0.5-1.9)
[2024-12-26 15:47] LABS: Appearance Urine Clear (Clear)
--- NOTE | 2024-12-26 16:45 | PC.NURSE ---
Per surgeon Haja- okay to hook NG up to LIS suction. Patient attached to suction- nothing came out of stomach. NG in left nare at 51
--- NOTE | 2024-12-26 16:57 | P.IMHP_ITS ---
Assessment and Plan Assessment and plan (1) Small bowel obstruction: Problem comment: - NG tube placed 12/26, NPO - general surgery following Status: Acute (2) Diet-controlled diabetes mellitus: Problem comment: - last A1C 7.1, previously on metformin but self discontinued this - accuchecks and SSI Status: Acute (3) Hyperlipidemia: Problem comment: - previously on statin, has stopped this Status: Acute Plan - per above - requires inpatient level of care given SBO requiring NG tube and NPO status, in addition to general surgery consultation - SCDs and [facility] for ppx Hospitalist- H&P: HPI History of Present Illness Date Seen: 12/26/24 Chief complaint: abdominal pain Narrative: Rodo Givens is a 64 year old male who presented to the ER today for persistent diarrhea, abdominal pain/bloating, weight loss. He's felt poorly for the past 2ish months; symptoms seemed to begin after eating an [employer] ice cream bar. He's had loose stools since then (nonbloody), intermittent nausea, occasional/rare vomiting. Has lost approximately 30 pounds. ER Course and Findings: - high grade mechanical SBO with transition point at terminal ileum, questionable developing pneumatosis - General Surgery (Dr. Smyth) consulted, NG tube placed - reassuring CBC, K of 3.3, Glucose 138, AST 46 - VS stable Rodo is admitted for SBO managment with NG tube, IVFs, IV pain medication, NPO status. History of sigmoidectomy secondary to diverticulitis, s/p partial colectomy and end ostomy followed by takedown. In addition, history of perforated appendicitis, managed non-operatively with drain. He has never had a colonoscopy. Medical history includes diet-controlled DM 2 (previously on metformin, has stopped this), last A1c 7.1; hyperlipidemia (previously on statin, has stopped this). PCP is Dr. Baca at [facility]. Review of Systems Status of ROS: Reports: 10 or more systems reviewed and unremarkable except as noted in History and below [facility] Medical History (Updated 12/26/24 @ 17:40 by Eliana Evans MD) Diverticulitis ?K57.92 - Diverticulitis of intestine, part unspecified, without perforation or abscess without bleeding (ICD-10) Perforated appendicitis ?K35.32 - Acute appendicitis with perforation, localized peritonitis, and gangrene, without abscess (ICD-10) Hyperlipidemia ?E78.5 - Hyperlipidemia, unspecified (ICD-10) Diet-controlled diabetes mellitus ?E11.9 - Type 2 diabetes mellitus without complications (ICD-10) Surgical History (Updated 12/26/24 @ 17:37 by Eliana Evans MD) Colostomy status ?Z93.3 - Colostomy status (ICD-10) Social History (Updated 12/26/24 @ 17:38 by Eliana Evans MD) Narrative: Lives in [place], retired; previously worked in [employer]. Son Edilson Hansen would be medical decision maker if needed. Nonsmoker, no alcohol use. DNR/DNI. Smoking Status: Never smoker How often do you have a drink containing alcohol: never AUDIT-C Alcohol total score: 0 Non-prescribed substance use: denies use Meds Home Medications and Allergies Home Medications ?Medication ?Instructions ?Recorded ?Confirmed ?Type albuterol sulfate 90 mcg/actuation 2 puff inhalation Q 6H PRN 04/01/22 12/26/24 History aerosol inhaler (Ventolin HFA) blood sugar diagnostic (Accu-Chek #10 ea 04/01/2208/18 History Guide test strips) Cinnamon 1 cap PO DAILY 12/26/2411/29 History Allergies Allergy/AdvReac Type Severity Reaction Status Date / Time No Known Drug Allergies Allergy Verified 12/26/24 12:13 Exam Narrative: Exam Narrative: GEN: Alert and oriented, nontoxic. + drainage from NG tube HEENT: EOMIs bilaterally, no scleral icterus CV: RRR, No concerning murmurs R: LCTA bilaterally, no wheezing Ab: Distended, + ttp, ventral hernia palpated, reducible. Hypoactive bowel sounds Ext: wwp, no concerning edema Skin: No concerning skin lesions or rashes on exposed skin Neuro: No focal deficits Psych: Mildly tearful when discussing history, otherwise appropriate Const: Vital Signs, click to edit/add: Vital Signs - 24 hr 12/26/24 12:05 12/26/24 14:49 Temperature 97.1 F L Pulse Rate [Pulse Oximeter] 100 80 Respiratory Rate 18 18 Blood Pressure [Le ft Upper Arm] 127/92 H 132/79 Pulse Oximetry 96 98 Oxygen Delivery Me thod Room Air Room Air Hospitalist - H&P: Result Labs Labs: Short CBC 12/26/24 Range/Units 12:39 WBC 9.18 (4.50-11.00) K/uL Hgb 15.2 (13.5-17.5) gm/dL Hct 46.3 (37.0-53.0) % Plt Count 318 (140-440) K/uL BMP 12/26/24 12:39 Sodium 137 Potassium 3.3 L Chloride 101 Carbon Dioxide 29 BUN 19 Creatinine 0.9 Glucose 138 H Calcium 8.8 Liver Function 12/26/24 Range/Units 12:39 Total Bilirubin 0.7 (0.1-1.5) mg/dL Direct Bilirubin 0.2 (0.0-0.5) mg/dL AST 46 H (12-35) U/L ALT 33 (4-50) U/L Alkaline Phosphatase 102 (40-150) U/L Albumin 3.5 (3.3-5.0) g/dL Urine 12/26/24 Range/Units 15:25 Urine Color Yellow (Yellow) Urine Appearance Clear (Clear) Urine pH 5.5 (5.0-8.5) Ur Specific [place] <= 1.005 (1.000-1.030) Urine Protein Negative (Negative) Urine Glucose (UA) Negative (Negative)
[2024-12-26 18:07] VITALS: BP 133/112; PULSE 82; RESP 16; TEMP 36.7; O2SAT 96; BMI 30.9
[2024-12-26] MEDS: POTASSIUM CHLORIDE 10 MEQ/100 ML PIGGYBACK 100 MEQ IVPB (18:28)
[2024-12-26] MEDS: SODIUM CHLORIDE 0.9 % (FLUSH) 10 ML SYRINGE 5 ML IVF (18:49)
[2024-12-26 19:25] VITALS: BP 159/104; PULSE 85; RESP 16; O2SAT 97
[2024-12-26 19:28] VITALS: BP 159/110
[2024-12-26 19:30] VITALS: BP 147/102; TEMP 37.1
[2024-12-27] VITALS (7 sets, daily range): BP systolic 118–158; BP diastolic 69–95; PULSE 61–90; RESP 14–22; TEMP 36.4–36.6; O2SAT 92–96
--- NOTE | 2024-12-27 00:02 | PC.NURSE ---
The patient arrived to the floor with an NG in place. Currently producing scant amounts of clear to yellow fluid. Pain of the abdomen that radiates outwards in pulses. Hyperactive bowel noises. Otherwise at their baseline strength. Hypertensive on admission. MD notified. No new orders. No other major developments over this shift. No other major assessment findings.?
[2024-12-27 06:30] LABS: Lactate* 0.6 mmol/L (0.5-1.9)
[2024-12-27 06:37] LABS: Hematocrit 44.7 % (37.0-53.0); Hemoglobin* 14.6 gm/dL (13.5-17.5); Immature Granulocytes Abs Auto 0.01 K/uL (0.00-0.30); Immature Granulocytes Pct Auto 0.1 %; Lymphocytes Absolute Auto 1.85 K/uL (0.90-2.90); Mean Corpuscular HGB Conc 33 gm/dL (32-36); Mean Corpuscular Hemoglobin 28 pg (26-34); Mean Corpuscular Volume 85 fL (80-100); RDW Coefficient of Variation % 15.0 % (11.5-15.5); Red Blood Count 5.28 m/uL (4.30-5.90); White Blood Count* 9.12 K/uL (4.50-11.00)
[2024-12-27 06:42] LABS: Slide Review Reflex No
--- NOTE | 2024-12-27 06:49 | PC.NURSE ---
pt rested on and off through the night, some output through NG which is kirk STEWART to place order for follow up abd xray. vitals stable, able to make needs and wishes known. patient moved rooms to accommodate coping of singing with out disturbing other patients. pt a&o x4.
[2024-12-27 06:51] LABS: Albumin* 3.0 g/dL (3.3-5.0); Chloride* 102 mmol/L (96-114); Sodium* 137 mmol/L (135-149)
[2024-12-27 06:54] LABS: Alanine Aminotransferase* 35 U/L (4-50); Alkaline Phosphatase* 103 U/L (40-150); Anion Gap 6 mEq/L (7-15); Aspartate Amino Transferase* 34 U/L (12-35); Bilirubin Total* 0.5 mg/dL (0.1-1.5); Blood Urea Nitrogen* 18 mg/dL (7-30); Carbon Dioxide* 29 mmol/L (20-32); Creatinine* 0.9 mg/dL (0.5-1.5); Est. Creatinine Clearance* 73.65; Estimated Glomerular Filt Rate 95 ml/min; Total Protein* 6.0 g/dL (6.0-8.3)
[2024-12-27 06:55] LABS: Calcium* 8.4 mg/dL (8.4-10.6); Glucose* 96 mg/dL (60-115)
[2024-12-27 06:59] LABS: Potassium* 2.7 mmol/L (3.6-5.1)
--- NOTE | 2024-12-27 07:02 | CRLHL7_ITS ---
For Patients: As a result of the Century Cures Act, medical imaging exams and procedure reports are released immediately into your electronic medical record. You may view this report before your referring provider. If you have questions, please contact your health care provider. Indication: Tube placement Technique: Abdomen 1 view Comparison: 12/26/2024 Findings/Impression: Bowel: Mildly dilated loops of bowel within the midabdomen although decreased in caliber compared to the study of 1 day prior. NG tube with tip in the stomach although the port is at the level of the gastroesophageal junction. Soft tissues: Density in the left abdomen, likely some residual contrast and overlapping stone. Bones: Degenerative disc disease lumbar spine. Dictated by Robert Hale MD @ 12/27/2024 7:27:37 AM (Electronically Signed)
[2024-12-27] MEDS: 5 % DEX/0.9 SOD CHL+KCL 20 mEq 1,000 ML 150 ML IV (07:52)
[2024-12-27] MEDS: POTASSIUM CHLORIDE 10 MEQ/100 ML PIGGYBACK 100 MEQ IVPB ×4 (07:53→14:31)
[2024-12-27] MEDS: PANTOPRAZOLE SODIUM 40 MG INJ IVP (09:35)
--- NOTE | 2024-12-27 09:59 | PM.GSPN ---
Subjective Subjective Date Seen: 12/27/24 Interval history: Patient continues to report intermittent cramping abdominal pain that comes and goes. No passage of gas or stool. He feels like ?there is lots of gurgling of bowel and ?. NG tube remains in place, but has had only a small amount of thick output. No fevers overnight. Exam Narrative: Exam Narrative: General: Alert and oriented, nontoxic Abdomen: Soft, continues to be distended but decreased compared to yesterday. Bowel sounds present with palpation. No guarding or rebound. Const: Vital Signs, click to edit/add: Vital Signs - 24 hr 12/26/24 12:05 12/26/24 14:49 12/26/24 18:07 Temperature 97.1 F L 98.1 F Pulse Rate [Pulse Oximeter] 100 80 82 Respiratory Rate 18 18 16 Blood Pressure [Le ft Arm] 133/112 H Blood Pressure [Le ft Upper Arm] 127/92 H 132/79 Blood Pressure [Ri ght Arm] Pulse Oximetry 96 98 96 Oxygen Delivery Me thod Room Air Room Air Room Air 12/26/24 19:25 12/26/24 19:28 12/26/24 19:30 Temperature 98.7 F Pulse Rate [Pulse Oximeter] 85 Respiratory Rate 16 Blood Pressure [Le ft Arm] 159/104 H Blood Pressure [Le ft Upper Arm] Blood Pressure [Ri ght Arm] 159/110 H 147/102 H Pulse Oximetry 97 Oxygen Delivery Me thod Room Air 12/27/24 05:01 Temperature 97.8 F Pulse Rate [Pulse Oximeter] 78 Respiratory Rate 19 Blood Pressure [Le ft Arm] 118/72 Blood Pressure [Le ft Upper Arm] Blood Pressure [Ri ght Arm] Pulse Oximetry 94 Oxygen Delivery Me thod Labs/Imaging Labs Labs: No leukocytosis, normal lactate. Hypokalemia this morning Imaging Imaging: Abdominal x-ray reviewed. NG tube can be advanced further into the stomach. Bowel continues to be dilated, but improved compared to yesterday Progress Note:A&P Assessment and plan (1) Small bowel obstruction: Status: Acute Assessment and Plan: Patient presents with a two-month history of increasing abdominal distension, weight loss and diarrhea. CT evidence of high-grade small-bowel obstruction. NG tube remains in place with low intermittent suction. Minimal output, tube does need to be advanced further based on this morning's abdominal x-ray. The output is very thick, so also is likely clogging the tube. Recommend flushing the NG tube at least once per shift by nursing. Vital signs stable. Labs reassuring this morning. Some improvement in his abdominal exam for me this morning compared to yesterday. Still no return of bowel function. Recommend a Gastrografin challenge today. Plan -NPO, IV fluids -NG tube to low intermittent suction, advance based off of abdominal x-ray. -nursing to flush once per shift -Gastrografin study to be performed this morning -encourage ambulation
--- NOTE | 2024-12-27 11:15 | PM.IMPN1 ---
Assessment and Plan Assessment and plan (1) Small bowel obstruction: Problem comment: - NG tube placed 12/26, NPO - general surgery following -12/27: Pt did not pass gas, no BM. Surgeon recs: -NPO, IV fluids -NG tube to low intermittent suction, advance based off of abdominal x-ray. nursing to flush once per shift -Gastrografin study to be performed this morning -encourage ambulation Status: Acute (2) Hypokalemia: Problem comment: - hypokalemia, K+ 2.7, IV K+ replacement ordered (4 bags). - Ordered add on lab for magnesium, please check the result and replace if necessary. - 4 pm Follow/up K+ lab after replacement, If potassium is still low please order more IV potassium this p.m. Status: Acute (3) Diet-controlled diabetes mellitus: Problem comment: - last A1C 7.1, previously on metformin but self discontinued this - accuchecks and SSI Status: Acute (4) Hyperlipidemia: Problem comment: - previously on statin, has stopped this Status: Acute Total Time Spent Total Time Spent: Today I spent 50 minutes seeing the patient, reviewing Expanse and EPIC notes/diagnostics, discussing the care plan with our care time that includes social work, PT/OT, pharmacy, RT, long term and documenting my impressions and plan in the medical record. Subjective Date Seen: 12/27/24 Interval history: Patient was seen and examined at bedside today. He still have diffuse abdominal pain and cramping . Did not pass gas as or bowel movement yet. Patient is with NG tube with the surgeon recommending Gastrografin challenge today. Exam Narrative: Exam Narrative: Physical exam GENERAL: NG tube in, no acute distress. HEAD AND NECK: Atraumatic, normocephalic CARDIOVASCULAR: RRR. Normal S1, S2. No murmurs. RESPIRATORY: Clear to auscultation B/L. Good air entry B/L. No wheezes or rhonchi. GASTROINTESTINAL: +ve Distended, diffuse tenderness to palpation. NEUROLOGY: Alert, awake, oriented X 3. Normal speech. Const: Vital Signs, click to edit/add: Vital Signs - 24 hr 12/26/24 12:05 12/26/24 14:49 12/26/24 18:07 Temperature 97.1 F L 98.1 F Pulse Rate [Pulse Oximeter] 100 80 82 Respiratory Rate 18 18 16 Blood Pressure [Le ft Arm] 133/112 H Blood Pressure [Le ft Upper Arm] 127/92 H 132/79 Blood Pressure [Ri ght Arm] Pulse Oximetry 96 98 96 Oxygen Delivery Me thod Room Air Room Air Room Air 12/26/24 19:25 12/26/24 19:28 12/26/24 19:30 Temperature 98.7 F Pulse Rate [Pulse Oximeter] 85 Respiratory Rate 16 Blood Pressure [Le ft Arm] 159/104 H Blood Pressure [Le ft Upper Arm] Blood Pressure [Ri ght Arm] 159/110 H 147/102 H Pulse Oximetry 97 Oxygen Delivery Me thod Room Air 12/27/24 05:01 12/27/24 07:00 12/27/24 07:30 Temperature 97.8 F 97.7 F Pulse Rate [Pulse Oximeter] 78 73 73 Respiratory Rate 19 18 18 Blood Pressure [Le ft Arm] 118/72 Blood Pressure [Le ft Upper Arm] Blood Pressure [Ri ght Arm] 125/81 Pulse Oximetry 94 94 Oxygen Delivery Me thod Room Air Labs Labs: Laboratory Results - last 24 hr 12/26/24 12/26/24 12/26/24 12:39 14:25 15:25 WBC 9.18 RBC 5.52 Hgb 15.2 Hct 46.3 MCV 84 MCH 28 MCHC 33 RDW Coeff of Amy 14.9 Plt Count 318 Neut % (Auto) 72.1 H Lymph % (Auto) 17.8 L [place] % (Auto) 7.8 Eos % (Auto) 1.9 Baso % (Auto) 0.2 Neut # (Auto) 6.60 Lymph # (Auto) 1.60 [place] # (Auto) 0.70 Eos # (Auto) 0.17 Baso # (Auto) 0.02 Abs Immat Gran (auto) 0.02 Imm/Tot Granulo (auto) 0.2 Sodium 137 Potassium 3.3 L Chloride 101 Carbon Dioxide 29 Anion Gap 7 BUN 19 Creatinine 0.9 Estimated Creat Clear 73.65 Estimated GFR 95 Glucose 138 H Lactate 1.0 Calcium 8.8 Total Bilirubin 0.7 Direct Bilirubin 0.2 AST 46 H ALT 33 Alkaline Phosphatase 102 Total Protein 6.7 Albumin 3.5 Lipase 23 Urine Color Yellow Urine Appearance Clear Urine pH 5.5 Ur Specific [place] <= 1.005 Urine Protein Negative Urine Glucose (UA) Negative Urine Ketones Trace A Urine Blood Trace-intact A Urine Nitrite Negative Urine Bilirubin Negative Urine Urobilinogen 0.2 Ur Leukocyte Esterase Negative Urine RBC 0-2 Urine WBC 0-2 Ur Squamous Epith Cells None Urine Bacteria None 12/27/24 06:24 WBC 9.12 RBC 5.28 Hgb 14.6 Hct 44.7 MCV 85 MCH 28 MCHC 33 RDW Coeff of Amy 15.0 Plt Count 320 Neut % (Auto) 68.8 Lymph % (Auto) 20.3 [place] % (Auto) 7.6 Eos % (Auto) 2.7 Baso % (Auto) 0.5 Neut # (Auto) 6.27 Lymph # (Auto) 1.85 [place] # (Auto) 0.70 Eos # (Auto) 0.25 Baso # (Auto) 0.05 Abs Immat Gran (auto) 0.01 Imm/Tot Granulo (auto) 0.1 Sodium 137 Potassium 2.7 L* Chloride 102 Carbon Dioxide 29 Anion Gap 6 L BUN 18 Creatinine 0.9 Estimated Creat Clear 73.65 Estimated GFR 95 Glucose 96 Lactate 0.6 Calcium 8.4 Total Bilirubin 0.5 Direct Bilirubin AST 34 ALT 35 Alkaline Phosphatase 103 Total Protein 6.0 Albumin 3.0 L Lipase Urine Color Urine Appearance Urine pH Ur Specific [place] Urine Protein Urine Glucose (UA) Urine Ketones Urine Blood Urine Nitrite Urine Bilirubin Urine Urobilinogen Ur Leukocyte Esterase Urine RBC Urine WBC Ur Squamous Epith Cells Urine Bacteria Imaging Abdominal x-ray: Attestation: I have reviewed the pertinent imaging results. Radiologist's impression: Date of Service: 12/27/24 Procedure(s): XR abdomen 1V Accession Number(s): [id number] cc: Hansa Smyth M.D.; Provider,Not a Local~ For Patients: As a result of the Century Cures Act, medical imaging exams and procedure reports are released immediately into your electronic medical record. You may view this report before your referring provider. If you have questions, please contact your health care provider. Indication: Tube placement Technique: Abdomen 1 view Comparison: 12/26/2024 Findings/Impression: Bowel: Mildly dilated loops of bowel within the midabdomen although decreased in caliber compared to the study of 1 day prior. NG tube with tip in the stomach although the port is at the level of the gastroesophageal junction. Soft tissues: Density in the left abdomen, likely some residual contrast and overlapping stone. Bones: Degenerative disc disease lumbar spine. Dictated by Robert Hale MD @ 12/27/2024 7:27:37 AM
[2024-12-27] MEDS: DIATRIZOATE MEGLUMINE, SODIUM 120 ML SOLUTION 90 ML NG (11:41)
[2024-12-27] MEDS: ONDANSETRON 2 MG/ML inj 4 MG IVP ×2 (12:34→20:16)
[2024-12-27 16:00] LABS: Potassium* 3.5 mmol/L (3.6-5.1)
[2024-12-27 18:21] LABS: Potassium* 3.2 mmol/L (3.6-5.1)
[2024-12-27] MEDS: POTASSIUM CHLORIDE 10 MEQ/100 ML PIGGYBACK 60 MEQ IVPB ×2 (19:04→21:30)
[2024-12-27] MEDS: 5 % DEX/0.9 SOD CHL+KCL 20 mEq 1,000 ML 100 ML IV (19:06)
--- NOTE | 2024-12-27 19:06 | PC.NURSE ---
Pt. is AOX4. Pt. VSS. Afebrile. Pt. up & IND in room w/o assistance. Pt. AMB hallways IND. Pt. tolerated Gastrografin. Bowel sounds present/ Pt. reported nausea & pain, meeds given; see EMAR.
--- NOTE | 2024-12-27 19:30 | CRLHL7_ITS ---
For Patients: As a result of the Century Cures Act, medical imaging exams and procedure reports are released immediately into your electronic medical record. You may view this report before your referring provider. If you have questions, please contact your health care provider. Indication: Gastrografin challenge. Technique: Abdomen 1 view. Comparison: None. Findings/impression: Multiple dilated loops of small bowel are identified, measuring up to 6.8 centimeters in diameter. No definitive contrast in the large bowel. Contrast material noted within the bladder. Stable density in the left upper abdomen and right upper abdomen may be stones or contrast. Osseous structures are stable. Dictated by Darrian Campbell MD @ 12/27/2024 8:09:36 PM (Electronically Signed)
[2024-12-27] MEDS: SODIUM CHLORIDE 0.9 % (FLUSH) 10 ML SYRINGE 5 ML IVF (20:16)
[2024-12-27] MEDS: ENOXAPARIN 40 MG/0.4 ML INJ SUBCUT (21:30)
[2024-12-28] MEDS: INSULIN ASPART 100 UNIT/ML SUBCUT ×2 (00:14→06:11)
[2024-12-28] MEDS: 5 % DEX/0.9 SOD CHL+KCL 20 mEq 1,000 ML 100 ML IV ×2 (02:37→09:59)
[2024-12-28 02:38] VITALS: BP 145/77; PULSE 60; RESP 20; TEMP 36.4; O2SAT 95
[2024-12-28] MEDS: SODIUM CHLORIDE 0.9 % (FLUSH) 10 ML SYRINGE 5 ML IVF ×4 (02:45→23:50)
[2024-12-28 06:53] LABS: Hematocrit 44.0 % (37.0-53.0); Hemoglobin* 14.1 gm/dL (13.5-17.5); Mean Corpuscular HGB Conc 32 gm/dL (32-36); Mean Corpuscular Hemoglobin 28 pg (26-34); Mean Corpuscular Volume 86 fL (80-100); Red Blood Count 5.10 m/uL (4.30-5.90); White Blood Count* 8.60 K/uL (4.50-11.00)
[2024-12-28 07:00] VITALS: BP 133/73; PULSE 64; RESP 14; TEMP 36.8; O2SAT 95
--- NOTE | 2024-12-28 07:00 | CRLHL7_ITS ---
For Patients: As a result of the Century Cures Act, medical imaging exams and procedure reports are released immediately into your electronic medical record. You may view this report before your referring provider. If you have questions, please contact your health care provider. Indication: Abdomen pain. Technique: Abdomen 1 view. Comparison: Abdomen radiograph 12/27/2024 Findings: Bowel: Similar dilated bowel loops measuring up to 6.3 centimeters. No definite contrast in the large bowel. Oral contrast is not well visualized, but appears to be within small bowel loops. G-tube is present. Enteric tube with tip in the gastric fundus. Other: No pneumoperitoneum. Contrast in the bladder. Calcification in the right upper quadrant and left upper quadrant, likely represent renal stones. Impression: Similar dilation bowel loops with contrast remaining in the small bowel loops. Dictated by Arin Worrell MD @ 12/28/2024 6:56:17 AM (Electronically Signed)
[2024-12-28 07:01] LABS: Slide Review Reflex No
--- NOTE | 2024-12-28 07:04 | PC.NURSE ---
patient remained in discomfort most of the night, patient utilized pain med, shower, music, and ice for coping. patient had moderate output via NG. patient able to make needs known at 0645 patient comfortable and resting.
[2024-12-28 07:10] LABS: Albumin* 2.8 g/dL (3.3-5.0); Chloride* 106 mmol/L (96-114)
[2024-12-28 07:11] LABS: Potassium* 3.3 mmol/L (3.6-5.1); Sodium* 140 mmol/L (135-149)
[2024-12-28 07:13] LABS: Blood Urea Nitrogen* 17 mg/dL (7-30); Creatinine* 0.9 mg/dL (0.5-1.5); Est. Creatinine Clearance* 73.65; Estimated Glomerular Filt Rate 95 ml/min
[2024-12-28 07:14] LABS: Alanine Aminotransferase* 39 U/L (4-50); Alkaline Phosphatase* 95 U/L (40-150); Anion Gap 3 mEq/L (7-15); Aspartate Amino Transferase* 37 U/L (12-35); Bilirubin Total* 0.4 mg/dL (0.1-1.5); Calcium* 8.2 mg/dL (8.4-10.6); Carbon Dioxide* 31 mmol/L (20-32); Glucose* 162 mg/dL (60-115); Total Protein* 5.6 g/dL (6.0-8.3)
[2024-12-28] MEDS: PANTOPRAZOLE SODIUM 40 MG INJ IVP (08:32)
[2024-12-28] MEDS: POTASSIUM CHLORIDE 10 MEQ/100 ML PIGGYBACK 100 MEQ IVPB (09:59)
[2024-12-28 11:00] VITALS: BP 121/87; PULSE 93; RESP 16; TEMP 36.6; O2SAT 96
--- NOTE | 2024-12-28 11:02 | PM.IMPN1 ---
Assessment and Plan Assessment and plan (1) Small bowel obstruction: Problem comment: - NG tube placed 12/26, NPO - general surgery following -12/27: Pt did not pass gas, no BM. Surgeon recs: -NPO, IV fluids -NG tube to low intermittent suction, advance based off of abdominal x-ray. nursing to flush once per shift -Gastrografin study performed yesterday 12/27/2024 -encourage ambulation -12/28: He states that he still have diffuse abdominal pain with some nausea. He denies passing gas or having any stool. Very little amount of fluids is coming through suctioning of his NG tube and is mostly thick fluid. -Abdominal x-ray today showed Similar dilation bowel loops with contrast remaining in the small bowel loops. -if Gastrografin did not go through his bowels, Dr Smyth to decide if pt may need Sx. Status: Acute (2) Hypokalemia: Problem comment: - hypokalemia, K+ 2.7, IV K+ replacement ordered (4 bags). - Ordered add on lab for magnesium, please check the result and replace if necessary. - 4 pm Follow/up K+ lab after replacement, If potassium is still low please order more IV potassium this p.m. - 12/28: improving, K 3.3, will give 3 more bags of potassium chloride IV. (got 2 potassium packs overnight). Status: Acute (3) Diet-controlled diabetes mellitus: Problem comment: - last A1C 7.1, previously on metformin but self discontinued this - accuchecks and SSI Status: Acute (4) Hyperlipidemia: Problem comment: - previously on statin, has stopped this Status: Acute Total Time Spent Total Time Spent: Today I spent 50 minutes seeing the patient, reviewing Expanse and EPIC notes/diagnostics, discussing the care plan with our care time that includes social work, PT/OT, pharmacy, RT, correction and documenting my impressions and plan in the medical record. X Subjective Date Seen: 12/28/24 Interval history: She is patient was seen and examined at bedside today. He states that he still have diffuse abdominal pain with some nausea. He denies passing gas or having any stool. Very little amount of fluids is coming through suctioning of his NG tube and is mostly thick fluid. He got 2 potassium packs overnight. Exam Narrative: Exam Narrative: GENERAL: NG tube in, no acute distress. HEAD AND NECK: Atraumatic, normocephalic CARDIOVASCULAR: RRR. Normal S1, S2. No murmurs. RESPIRATORY: Clear to auscultation B/L. Good air entry B/L. No wheezes or rhonchi. GASTROINTESTINAL: +ve Distended, diffuse tenderness to palpation. NEUROLOGY: Alert, awake, oriented X 3. Normal speech. Const: Vital Signs, click to edit/add: Vital Signs - 24 hr 12/27/24 15:00 12/27/24 15:00 12/27/24 20:02 Temperature 98 F 97.5 F L Pulse Rate [Pulse Oximeter] 82 90 63 Respiratory Rate 14 16 22 Blood Pressure [Le ft Arm] Blood Pressure [Ri ght Arm] 139/95 H 158/95 H Pulse Oximetry 92 95 Oxygen Delivery Me thod Room Air Room Air 12/27/24 23:56 12/27/24 23:56 12/28/24 02:38 Temperature 97.7 F 97.5 F L Pulse Rate [Pulse Oximeter] 61 60 Respiratory Rate 16 16 20 Blood Pressure [Le ft Arm] 145/77 H Blood Pressure [Ri ght Arm] 123/69 Pulse Oximetry 95 95 Oxygen Delivery Me thod Room Air Room Air 12/28/24 07:00 12/28/24 07:00 Temperature 98.2 F Pulse Rate [Pulse Oximeter] 64 64 Respiratory Rate 14 14 Blood Pressure [Le ft Arm] Blood Pressure [Ri ght Arm] 133/73 Pulse Oximetry 95 Oxygen Delivery Me thod Room Air Labs Labs: Laboratory Results - last 24 hr 12/27/24 12/27/24 12/27/24 06:24 11:08 15:42 WBC RBC Hgb Hct MCV MCH MCHC Plt Count Sodium Potassium 3.5 L Chloride Carbon Dioxide Anion Gap BUN Creatinine Estimated Creat Clear Estimated GFR Glucose Calcium Magnesium 2.1 Total Bilirubin AST ALT Alkaline Phosphatase Total Protein Albumin Lab Acknowledgement Test Added 12/27/24 12/28/24 18:12 06:27 WBC 8.60 RBC 5.10 Hgb 14.1 Hct 44.0 MCV 86 MCH 28 MCHC 32 Plt Count 272 Sodium 140 Potassium 3.2 L 3.3 L Chloride 106 Carbon Dioxide 31 Anion Gap 3 L BUN 17 Creatinine 0.9 Estimated Creat Clear 73.65 Estimated GFR 95 Glucose 162 H Calcium 8.2 L Magnesium 2.1 Total Bilirubin 0.4 AST 37 H ALT 39 Alkaline Phosphatase 95 Total Protein 5.6 L Albumin 2.8 L Lab Acknowledgement Imaging Abdominal x-ray: Attestation: I have reviewed the pertinent imaging results. Radiologist's impression: [facility] [address] [place] [address] Diagnostic Imaging Report Service Date: 12/28/[address]: Eliana Evans M.D. Ordering Physician: Hansa Smyth M.D. Date of Service: 12/28/24 Procedure(s): XR abdomen 1V Accession Number(s): [id number] cc: Hansa Smyth M.D.; Provider,Not a Local~ For Patients: As a result of the Cures Act, medical imaging exams and procedure reports are released immediately into your electronic medical record. You may view this report before your referring provider. If you have questions, please contact your health care provider. Indication: Abdomen pain. Technique: Abdomen 1 view. Comparison: Abdomen radiograph 12/27/2024 Findings: Bowel: Similar dilated bowel loops measuring up to 6.3 centimeters. No definite contrast in the large bowel. Oral contrast is not well visualized, but appears to be within small bowel loops. G-tube is present. Enteric tube with tip in the gastric fundus. Other: No pneumoperitoneum. Contrast in the bladder. Calcification in the right upper quadrant and left upper quadrant, likely represent renal stones. Impression: Similar dilation bowel loops with contrast remaining in the small bowel loops. Dictated by Arin Worrell MD @ 12/28/2024 6:56:17 AM
[2024-12-28] MEDS: ONDANSETRON 2 MG/ML inj 4 MG IVP (11:05)
--- NOTE | 2024-12-28 11:16 | P.GSPN_ITS ---
Subjective Subjective Date Seen: 12/28/24 Interval history: Patient reports no change in pain. Continued abdominal distension and intermittent cramping pain. Has not passed gas or had a bowel movement. Is feeling really hungry this morning. Denies any nausea. NG tube remains in radames ce. Exam Narrative: Exam Narrative: General: Alert and oriented, no acute distress HEENT: Thick output in canister from NG tube abdomen: Distended, soft, some diffuse tenderness to palpation with no guarding or rebound. Multiple ventral hernias present. Const: Vital Signs, click to edit/add: Vital Signs - 24 hr 12/27/24 15:00 12/27/24 15:00 12/27/24 20:02 Temperature 98 F 97.5 F L Pulse Rate [Pulse Oximeter] 82 90 63 Respiratory Rate 14 16 22 Blood Pressure [Le ft Arm] Blood Pressure [Ri ght Arm] 139/95 H 158/95 H Pulse Oximetry 92 95 Oxygen Delivery Me thod Room Air Room Air 12/27/24 23:56 12/27/24 23:56 12/28/24 02:38 Temperature 97.7 F 97.5 F L Pulse Rate [Pulse Oximeter] 61 60 Respiratory Rate 16 16 20 Blood Pressure [Le ft Arm] 145/77 H Blood Pressure [Ri ght Arm] 123/69 Pulse Oximetry 95 95 Oxygen Delivery Me thod Room Air Room Air 12/28/24 07:00 12/28/24 07:00 Temperature 98.2 F Pulse Rate [Pulse Oximeter] 64 64 Respiratory Rate 14 14 Blood Pressure [Le ft Arm] Blood Pressure [Ri ght Arm] 133/73 Pulse Oximetry 95 Oxygen Delivery Me thod Room Air Labs/Imaging Labs Labs: No leukocytosis. Imaging Imaging: Abdominal x-ray from yesterday and today reviewed, contrast is within small-lynda wel but has not passed into the large bowel Progress Note:A&P Assessment and plan (1) Small bowel obstruction: Status: Acute Assessment and Plan: Patient with a high-grade small-bowel obstruction. NG tube was placed on admission. Yesterday a Gastrografin challenge was started. An abdominal x-ray was obtained last night and this morning, with contrast within small-bowel but not yet within the colon. Will allow a full 48 hours to see if any contrast travels into the colon. If by tomorrow morning it does not then I discussed with the patient proceeding to the operating room. He was encouraged to ambulate at least 6 times today. Will continue with the NG tube in place to low intermittent suction and NPO.
[2024-12-28] MEDS: POTASSIUM CHLORIDE 10 MEQ/100 ML PIGGYBACK 70 MEQ IVPB ×2 (11:38→13:16)
[2024-12-28] MEDS: 5 % DEX/0.9 SOD CHL+KCL 20 mEq 1,000 ML 125 ML IV ×2 (11:38→20:52)
--- NOTE | 2024-12-28 12:05 | NUTR.NU ---
RDN with positive MST for weight loss and eating poorly and MD consult for diabetic teaching. Patient admitted with a SBO. NG tube placed 12/26/24 to low intermittent suction. Currently NPO. Medical history includes, but not limited to hypokalemia, diet-controlled diabetes mellitus, and hyperlipidemia. Per surgery, Gastrograffin challenge started 12/27/24 and abdominal x-ray last night and today showed contrast within the small bowel, but not the colon. Possibly surgery tomorrow based on Gastrograffin results in the morning per MD. Current weight 210lbs, height 5ft 9in, and BMI 31.1kg/m2. No recent weight history available that is not stated or estimated by patient. Nutrition education and intervention not appropriate at this time d/t NPO status and abdominal pain. RDN will attempt to visit at a later date when appropriate. RDN will continue to monitor and follow prn.
[2024-12-28 15:00] VITALS: PULSE 98; RESP 16
--- NOTE | 2024-12-28 15:25 | PC.NURSE ---
Shift summary: Patient pleasant and cooperative. Up independently, walking in halls frequently. Informed patient we need to measure urine output and has been compliant. Vitals stable and WNL. Pain and nausea managed with PRN medication, see MAR. 50cc out of NG during shift.
--- NOTE | 2024-12-28 16:22 | CRLHL7_ITS ---
For Patients: As a result of the Century Cures Act, medical imaging exams and procedure reports are released immediately into your electronic medical record. You may view this report before your referring provider. If you have questions, please contact your health care provider. Indication: NG tube placement Technique: Supine view abdomen was obtained. Comparison: KUB December 28, 2024 Findings: Demonstration nasogastric tube with the tip in the gastric lumen and the side port just at the gastroesophageal junction, consider advancement 5 centimeters into the gastric lumen proper. Enteric contrast is seen within the gastric lumen and small bowel with persistent marked distention of bowel loops. Impression: Demonstration of nasogastric tube in the gastric lumen with the side port just at the gastroesophageal junction, consider advancement 5 centimeters into the gastric lumen for more optimal positioning. Otherwise stable markedly distended small bowel and minimal enteric contrast. Dictated by Anil Cramer MD @ 12/28/2024 5:59:30 PM (Electronically Signed)
[2024-12-28 18:34] VITALS: BP 167/93; PULSE 98; RESP 16; TEMP 36.6; O2SAT 97
[2024-12-28] MEDS: ENOXAPARIN 40 MG/0.4 ML INJ SUBCUT (21:11)
[2024-12-28 23:00] VITALS: BP 149/89; PULSE 76; RESP 18; TEMP 36.6; O2SAT 98
[2024-12-29] VITALS (33 sets, daily range): BP systolic 108–136; BP diastolic 66–84; PULSE 65–95; RESP 16–24; TEMP 35.7–36.9; O2SAT 93–97
[2024-12-29] MEDS: 5 % DEX/0.9 SOD CHL+KCL 20 mEq 1,000 ML 125 ML IV (04:47)
--- NOTE | 2024-12-29 06:22 | PC.NURSE ---
end of shift [id number]: Pt AxOx4, cooperative, and pleasant with cares. NG tube remains at 60, pH updated and notified to MD. No further interventions. NG draining yellow tinged colored gastric content. Pt moving indep in room with IV pole once NG is disconnected. Reports abdominal pain that is managed with PRN pain medications and repositioning. Distension noted of the abdomen. Pt denies N/V/CP/SOB. Pt able to rest for majority of the night. Pt appears resting with call light in reach.
--- NOTE | 2024-12-29 07:00 | CRLHL7_ITS ---
For Patients: As a result of the Cures Act, medical imaging exams and procedure reports are released immediately into your electronic medical record. You may view this report before your referring provider. If you have questions, please contact your health care provider. INDICATION: Small bowel obstruction. COMPARISON: CT abdomen and pelvis with intravenous contrast December 26, 2024; radiographic examination of the abdomen December 26, 2024, December 27, 2024 and December 28, 2024. TECHNIQUE: Portable KUB. FINDINGS: Nasogastric tube in the stomach. Stomach is decompressed when compared to the previous study. Still appreciated are dilated loops of small bowel , less distended when compared to the previous study. IMPRESSION: 1. Less distention of the small bowl and compared to the previous imaging. 2. Nasogastric tube in the stomach. Dictated by Ba Stephenson MD @ 12/29/2024 8:17:38 AM (Electronically Signed)
[2024-12-29 07:45] LABS: Hematocrit 40.7 % (37.0-53.0); Hemoglobin* 12.9 gm/dL (13.5-17.5); Mean Corpuscular HGB Conc 32 gm/dL (32-36); Mean Corpuscular Hemoglobin 28 pg (26-34); Mean Corpuscular Volume 87 fL (80-100); Red Blood Count 4.66 m/uL (4.30-5.90); White Blood Count* 6.47 K/uL (4.50-11.00)
[2024-12-29 07:47] LABS: Slide Review Reflex No
[2024-12-29 07:58] LABS: Albumin* 2.4 g/dL (3.3-5.0); Chloride* 111 mmol/L (96-114)
[2024-12-29 07:59] LABS: Potassium* 3.6 mmol/L (3.6-5.1); Sodium* 142 mmol/L (135-149)
[2024-12-29 08:01] LABS: Alanine Aminotransferase* 30 U/L (4-50); Anion Gap 2 mEq/L (7-15); Aspartate Amino Transferase* 24 U/L (12-35); Blood Urea Nitrogen* 15 mg/dL (7-30); Carbon Dioxide* 29 mmol/L (20-32); Creatinine* 0.8 mg/dL (0.5-1.5); Est. Creatinine Clearance* 73.65; Estimated Glomerular Filt Rate 98 ml/min
[2024-12-29 08:02] LABS: Alkaline Phosphatase* 81 U/L (40-150); Bilirubin Total* 0.3 mg/dL (0.1-1.5); Calcium* 8.2 mg/dL (8.4-10.6); Glucose* 147 mg/dL (60-115); Total Protein* 5.1 g/dL (6.0-8.3)
[2024-12-29] MEDS: 5 % DEX/0.9 SOD CHL+KCL 20 mEq 1,000 ML 100 ML IV ×2 (08:11→18:58)
[2024-12-29] MEDS: PANTOPRAZOLE SODIUM 40 MG INJ IVP (08:26)
[2024-12-29] MEDS: SODIUM CHLORIDE 0.9 % (FLUSH) 10 ML SYRINGE 5 ML IVF (08:26)
--- NOTE | 2024-12-29 09:08 | P.IMPN_ITS ---
Assessment and Plan Assessment and plan (1) Small bowel obstruction: Problem comment: - NG tube placed 12/26, NPO - general surgery following -12/27: Pt did not pass gas, no BM. Surgeon recs: -NPO, IV fluids -NG tube to low intermittent suction, advance based off of abdominal x-ray. nursing to flush once per shift -Gastrografin study performed yesterday 12/27/2024 -encourage ambulation -12/28: He states that he still have diffuse abdominal pain with some nausea. He denies passing gas or having any stool. Very little amount of fluids is coming through suctioning of his NG tube and is mostly thick fluid. -Abdominal x-ray today showed Similar dilation bowel loops with contrast remaining in the small bowel loops. -on IV fluids for maintenance -12/29: Surgeon to allow a full 48 hours to see if any contrast travels into the colon & If it does not, then Sx may proceed to the operating room. -Cont. NG tube in place to low intermittent suction. -encourage ambulation. -on IV fluids for maintenance Status: Acute (2) Hypokalemia: Problem comment: - hypokalemia, K+ 2.7, IV K+ replacement ordered (4 bags). - Ordered add on lab for magnesium, please check the result and replace if necessary. - 4 pm Follow/up K+ lab after replacement, If potassium is still low please order more IV potassium this p.m. - 12/28: improving, K 3.3, will give 3 more bags of potassium chloride IV. (got 2 potassium packs overnight). - 12/29: Resolved, potassium within normal. Status: Resolved (3) Diet-controlled diabetes mellitus: Problem comment: - last A1C 7.1, previously on metformin but self discontinued this - accuchecks and SSI Status: Acute (4) Hyperlipidemia: Problem comment: - previously on statin, has stopped this Status: Acute Total Time Spent Total Time Spent: Today I spent 50 minutes seeing the patient, reviewing Expanse and EPIC notes/diagnostics, discussing the care plan with our care time that includes social work, PT/OT, pharmacy, RT, chcf and documenting my impressions and plan in the medical record. Subjective Date Seen: 12/29/24 Interval history: She is patient was seen and examined at bedside today. He states that there is no improvement yet and he still has diffuse abdominal pain. Not passing gas or having any stool yet. Exam Narrative: Exam Narrative: Physical exam GENERAL: Comfortable, no acute distress. HEAD AND NECK: Atraumatic, normocephalic CARDIOVASCULAR: RRR. Normal S1, S2. No murmurs. RESPIRATORY: Clear to auscultation B/L. Good air entry B/L. No wheezes or rhonchi. GASTROINTESTINAL: distended, diffuse tenderness to palpation. No rigidity. NEUROLOGY: Alert, awake, oriented X 3. Normal speech. Const: Vital Signs, click to edit/add: Vital Signs - 24 hr 12/28/24 11:00 12/28/24 15:00 12/28/24 18:34 Temperature 97.9 F 97.9 F Pulse Rate [Pulse Oximeter] 93 98 98 Respiratory Rate 16 16 16 Blood Pressure [Ri ght Arm] 121/87 167/93 H Pulse Oximetry 96 97 Oxygen Delivery Me thod Room Air Room Air 12/28/24 23:00 12/29/24 03:00 12/29/24 07:00 Temperature 97.9 F Pulse Rate [Pulse Oximeter] 76 65 66 Respiratory Rate 18 18 16 Blood Pressure [Ri ght Arm] 149/89 H 136/83 Pulse Oximetry 98 96 Oxygen Delivery Me thod Room Air Room Air 12/29/24 07:41 Temperature 98.5 F Pulse Rate [Pulse Oximeter] 66 Respiratory Rate 16 Blood Pressure [Ri ght Arm] 133/77 Pulse Oximetry 93 Oxygen Delivery Me thod Room Air Labs Labs: Laboratory Results - last 24 hr 12/29/24 07:38 WBC 6.47 RBC 4.66 Hgb 12.9 L Hct 40.7 MCV 87 MCH 28 MCHC 32 Plt Count 261 Sodium 142 Potassium 3.6 Chloride 111 Carbon Dioxide 29 Anion Gap 2 L BUN 15 Creatinine 0.8 Estimated Creat Clear 73.65 Estimated GFR 98 Glucose 147 H Calcium 8.2 L Total Bilirubin 0.3 AST 24 ALT 30 Alkaline Phosphatase 81 Total Protein 5.1 L Albumin 2.4 L
--- NOTE | 2024-12-29 10:36 | P.GSPN_ITS ---
Subjective Subjective Date Seen: 12/29/24 Interval history: Patient seems angry this morning. He is upset that things have not been able to resolve, but is understanding that he needs to go to the operating room. I had a long conversation with him this morning, with anesthesia present, regarding the recommendations for the procedure due to no contrast seen in the colon making this obstruction unlikely to resolve with conservative management. He is DNR/DNI, but agreeable to suspending this during the procedure. He is also agreeable to keeping the ET tube in for a short period of time if needed immediately after the procedure. He was very hesitant about the possibility of transferring to another hospital, but understands that it may be necessary and is okay with that decision being made by the medical team. He has been walking the halls. He still reports that his abdomen is distended. Continues to be painful. He denies any passing of gas or bowel movements. No nausea. The NG tube remains in place. Exam Narrative: Exam Narrative: Abdomen: Distended abdomen, hyperactive bowel sounds, diffuse tenderness to palpation with no guarding or rebound. HEENT: NG tube in place with light brown, sicker output. Const: Vital Signs, click to edit/add: Vital Signs - 24 hr 12/28/24 11:00 12/28/24 15:00 12/28/24 18:34 Temperature 97.9 F 97.9 F Pulse Rate [Pulse Oximeter] 93 98 98 Respiratory Rate 16 16 16 Blood Pressure [Ri ght Arm] 121/87 167/93 H Pulse Oximetry 96 97 Oxygen Delivery Me thod Room Air Room Air 12/28/24 23:00 12/29/24 03:00 12/29/24 07:00 Temperature 97.9 F Pulse Rate [Pulse Oximeter] 76 65 66 Respiratory Rate 18 18 16 Blood Pressure [Ri ght Arm] 149/89 H 136/83 Pulse Oximetry 98 96 Oxygen Delivery Me thod Room Air Room Air 12/29/24 07:41 Temperature 98.5 F Pulse Rate [Pulse Oximeter] 66 Respiratory Rate 16 Blood Pressure [Ri ght Arm] 133/77 Pulse Oximetry 93 Oxygen Delivery Me thod Room Air Labs/Imaging Labs Labs: No leukocytosis. Imaging Imaging: Abdominal x-ray reviewed from last night and this morning. Contrast seen within small bowel, this has not gone into the colon. The colon itself remains decompressed. Progress Note:A&P Assessment and plan (1) Small bowel obstruction: Status: Acute Assessment and Plan: Patient with a high-grade small-bowel obstruction. Gastrografin challenge performed on 12/27. After a 48 hour period of time the contrast has failed to travel into the colon. Patient is also denying any return of bowel function. NG tube remains in place. Light brown, thick output in tube and canister. Different treatment options were discussed at length with the patient. This in cluded continued conservative management versus proceeding to the operating room. Risks and benefits of each treatment path were discussed at length. At this time, after answering all the patient's questions he has decided to proceed to the operating room. Will plan for an exploratory laparotomy, lysis of adhesions and possible small-bowel resection or resection of colon if needed. He does understand that if a resection is performed it will likely mean he needs to stay in the hospital for a longer period of time while awaiting return of bowel function. Anticipate that he will have an NG tube and Oates following the procedure.
[2024-12-29] MEDS: LACTATED RINGERS 1000 ML 1,000 ML 100 ML IV ×3 (10:48→12:54)
[2024-12-29] MEDS: PIPERACILLIN/TAZOBACTAM 3.375 GM INJ IVPB (11:02)
--- NOTE | 2024-12-29 11:44 | SUR.OPER ---
circular spots noted upon skin assessment preprocedure in various areas of body
--- NOTE | 2024-12-29 12:39 | P.NB_ITS ---
Nerve Block Nerve Block Time Seen by Provider: 10:48 Date Seen: 12/29/24 Type of block requested by surgeon for post-operative analgesia: TAP Side: bilateral Time out performed: Yes Verification of patient name: Yes Verification of date of : Yes Name of person performing procedure: Jamia Christian Continuous monitoring Was continuous monitoring of O2 sat, B/P, fabrication operator, recorded every 15 minutes?: Yes Procedure Checklist: sterile prep, needles and gloves Ultrasound guided. Images saved: Yes Medications given in 5ml increments after negative aspiration: Marcaine %: 0.25 mL: 30 Needle gauge: 20 and Exparel mL: 10 Needle gauge: 20 Patient tolerated procedure well: Yes Block Charges Block Charge (with Pro Fee): TAP Bilateral Use of Ultrasound Machine for Block: Yes- US Guidance/pain block
--- NOTE | 2024-12-29 17:01 | P.GSOP_ITS ---
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 Exploratory laparotomy 2. Lysis of adhesions, 4 hours. Additional modifier 22 due to difficulty of the case 3. Ileocecectomy Indications: Patient is a 64-year-old male who presented to the hospital with evidence of a high-grade small-bowel obstruction. This failed conservative management with recommendations to proceed to the operating room. Risks and benefits of operative intervention were discussed at length with the patient. Risks included but was not limited to: Bleeding, infection, risk of damage to surrounding structures, possible need for additional procedures and postoperative complications such as pneumonia, pulmonary emboli or PR. All questions and concerns were addressed with the patient agreeing to proceed. Procedure Description: After discussing the risks and benefits of the procedure, the patient signed informed consent.? The operative site was marked and the patient was brought to the operating room and placed on the operating table in supine position.? Care was taken to pad the patient's pressure points.?? The patient was then intubated by anesthesia.? DAMARI blocks were performed bilaterally by anesthesia. A Oates was placed sterilely.? The operative site was then prepped and draped in the usual sterile fashion.? A time-out was then performed. A midline incision was made with a 10 blade scalpel over the patient's previously well-healed incision. Dissection was carried down through subcutaneous tissue and scar to the fascia. The fascia was incised with cautery. Two Kochers were placed onto the edge of the fascia and retracted up, there were dense adhesions of omentum and small bowel to the midline incision. These adhesions were carefully taken down with Metzenbaum scissors and cautery when appropriate. The adhesions were dense and extensive throughout the abdomen. I continued to lyse the small bowel away from the midline and was able to enter the abdomen. A significant amount of adhesions were present between loops of bowel, to the anterior abdominal wall and surrounding colon. This portion of the procedure was made difficult due to several ventral hernias that were present. I was able to reduce all bowel within the hernia sacs and freshened the fascial edges. At least 4 hours of lysis of adhesions was performed. The small bowel was then able to be run from the ligament of Treitz to the terminal ileum. It was diffusely dilated. At the terminal ileum there was dense adhesions and a stricture of the small bowel and the cecum. This did seem to be consistent with a transition point. Adhesions to the abdominal wall in this area were carefully taken down. I then mobilized the right colon by taking down the ligament of Treitz up towards the hepatic flexure. Visualization was very difficult during this portion of the procedure due to the size and inflammation of the surrounding small bowel. Once the right colon was mobilized and all adhesions taken down I was able to bring the strictured segment of bowel into the operative field. A point of transection was chosen on the distal ileum. A mesenteric window was made with cautery. 100 mm handheld bowel stapler was then used to transect the small bowel. The staple line was inspected and hemostatic. A segment of ascending colon was chosen for transection. A mesenteric window was made with cautery. A 100 mm handheld bowel stapler was then used to transect the ascending colon. The mesentery was then taken down with several 2-0 silk ties. The specimen was passed off the ope rative field and sent to pathology. We toweled off the operative field in preparation for the anastomosis. The ileum was mobilized from interloop adhesions, allowing it to lie next to the ascending colon in a [id number] fashion. The colon and small bowel were lined up and a small enterotomy made in each segment on the anti mesenteric border. Upon making an enterotomy a significant amount of succus erupted from the small bowel, which was significantly dilated and under pressure. Suction was used to try and minimize contamination. 100 mm staple load was then placed into each limb of the bowel and an anastomosis created. Upon removing the stapler the mucosa was inspected and the staple line appeared intact with hemostasis. The common enterotomy was then closed with several interrupted 3-0 silk pop-off sutures via Lembert fashion. Several crotch stitches were placed on the staple line to relieve tension at that area. The mesenteric defect was then closed with a 3-0 Vicryl stitch. The anastomosis was then laid into the abdomen. The tissue was healthy in appearance, the anastomosis was widely patent and no tension was on the new connection. The abdomen was irrigated with a copious amount warm irrigation. At this point in the procedure all dirty equipment was taken off of the operative field and we switched our gowns and gloves. The midline incision was closed with two 0 0 looped PDS sutures. I was able to incorporate and close the multiple midline hernia defects into my repair. The wound was irrigated with warm saline. The incision was then closed with dennis. All counts were correct at the end of the case. Sterile dressings were then applied. ? The patient was then woken and transported to the recovery area in stable condition. ? The patient tolerated the procedure well. Findings: Diffusely dilated small bowel. 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 Ileocecectomy performed with [id number] functional end-to-end anastomosis. Anesthesia: GETA Surgeon: Hansa Smyth MD Estimated blood loss (mL): 200 Additional Specimen Information: Cecum and terminal ileum Condition: stable Disposition: PACU
--- NOTE | 2024-12-29 17:36 | P.ANES_ITS ---
Anesthesia Charges Start Date/Time Anesthesia Start Date: 12/29/24 Anesthesia Start Time: 10:48 Stop Date/Time Anesthesia Stop Date: 12/29/24 Anesthesia Stop Time: 17:19 Summary Emergency: ACTIVITIES DIRECTOR SCOUTING Coding CPT Codes CPT Codes: ANESTH SURG LOWER ABDOMEN - 25504 ([id number]) P3 - PATIENT W/SEVERE SYS DISEASE, QZ - ACTIVITIES DIRECTOR SCOUTING SVC W/O LEATHER SHAVER BY Additional Codes: Summary - Emergency: ACTIVITIES DIRECTOR SCOUTING ([id number])
--- NOTE | 2024-12-29 17:36 | W.ANESCHARGE ---
Anesthesia Charges Start Date/Time Anesthesia Start Date: 12/29/24 Anesthesia Start Time: 10:48 Stop Date/Time Anesthesia Stop Date: 12/29/24 Anesthesia Stop Time: 17:19 Summary Emergency: REVIEW SCHEDULING COORDINATOR Coding CPT Codes CPT Codes: ANESTH SURG LOWER ABDOMEN - 21675 ([id number]) P3 - PATIENT W/SEVERE SYS DISEASE, QZ - REVIEW SCHEDULING COORDINATOR SVC W/O CASH GRAIN GROWER BY Additional Codes: Summary - Emergency: REVIEW SCHEDULING COORDINATOR ([id number])
[2024-12-29] MEDS: LACTATED RINGERS 1000 ML 1,000 ML 50 ML IV (18:15)
[2024-12-29] MEDS: ONDANSETRON 2 MG/ML inj 4 MG IVP (18:59)
--- NOTE | 2024-12-29 19:07 | SUR.PHASEI ---
Ladan Gonzales CRNA approved the transfer of this patient to the MED/SURG floor.
[2024-12-29] MEDS: PIPERACILLIN/TAZOBACTAM 3.375 GM in 0.9 % SODIUM CHLORIDE Mini-bag 100 ML IVPB (19:45)
--- NOTE | 2024-12-29 20:14 | W.PM.CROSSCO ---
Subjective Subjective Time Seen by Provider: 19:00 Date Seen: 12/29/24 Interval history: Dr. Smyth spoke with me to give me an update after she finished the surgery and Rodo was still in PACU at the time. I also got an update from Ladan, the nurse director executive communications. Rodo was still sleeping upon return from the PACU, but arousable and complained of some abdominal pain. Objective Objective Data Details: T 96.5 F, BP 113/71, P 95, RR 20, O2 sats 95% on a nonrebreather @ 100% FIO2. General: No acute distress. Sleeping, arousable to name. No pallor. No jaundice. Cardiovascular: Regular rate and rhythm. No murmurs, gallops, or rubs. Respiratory: Clear to auscultation bilaterally. No wheezes or crackles. Abdomen: Postsurgical abdomen, bandages are clean, dry, and intact. Extremities: No lower extremity edema. Assessment and Plan Assessment and plan (1) Small bowel obstruction: Problem comment: - NG tube placed 12/26, NPO - general surgery following -12/27: Pt did not pass gas, no BM. Surgeon recs: -NPO, IV fluids -NG tube to low intermittent suction, advance based off of abdominal x-ray. nursing to flush once per shift -Gastrografin study performed yesterday 12/27/2024 -encourage ambulation -12/28: He states that he still have diffuse abdominal pain with some nausea. He denies passing gas or having any stool. Very little amount of fluids is coming through suctioning of his NG tube and is mostly thick fluid. -Abdominal x-ray today showed Similar dilation bowel loops with contrast remaining in the small bowel loops. -on IV fluids for maintenance -12/29: Surgeon to allow a full 48 hours to see if any contrast travels into the colon & If it does not, then Sx may proceed to the operating room. -Cont. NG tube in place to low intermittent suction. -encourage ambulation. -on IV fluids for maintenance Now s/p lysis of adhesions, ileocecectomy. VS stable post operatively. Monitor UO and monitor for third spacing. Careful fluid management. Restart preop fluids. AM labs. Status: Acute (2) Diet-controlled diabetes mellitus: Problem comment: - last A1C 7.1, previously on metformin but self discontinued this - Restart accuchecks and SSI. I restarted D5NS + 20mEq KCl. Status: Acute
[2024-12-29] MEDS: INSULIN ASPART 100 UNIT/ML SUBCUT (23:38)
--- NOTE | 2024-12-29 23:48 | PC.NURSE ---
RN and examined Pt for 3rd Spacing At 2300. Abd showed no signs of 3rd spacing edema and lungs remained clear.
[2024-12-30] VITALS (14 sets, daily range): BP systolic 111–139; BP diastolic 81–100; PULSE 81–122; RESP 16–20; TEMP 35.9–36.6; O2SAT 91–94
[2024-12-30] MEDS: PIPERACILLIN/TAZOBACTAM 3.375 GM in 0.9 % SODIUM CHLORIDE Mini-bag 100 ML IVPB ×4 (01:00→18:38)
--- NOTE | 2024-12-30 04:24 | PC.NURSE ---
Bedscale was not Zeroed for daily weight. Will pass on to next shift when Pt is standing to get accurate weight.
[2024-12-30] MEDS: 5 % DEX/0.9 SOD CHL+KCL 20 mEq 1,000 ML 100 ML IV ×2 (05:05→22:48)
--- NOTE | 2024-12-30 05:45 | PC.NURSE ---
Pt rested well this night. O2 was titrated down to 1L NC while sleeping and Sats remained above 92%. Pt can remain on RA when awake. Ab Pain treated with Dilaudid Q1 all night. Ice applied over dressing which is CDI. NG at 60cm. Pt voiding via Aotes. LS clear. No N/V. Afebrile. VS unremarkable. No 3rd spacing observed. Pt pleasant and cooperative.
[2024-12-30] MEDS: INSULIN ASPART 100 UNIT/ML SUBCUT ×4 (05:58→23:48)
[2024-12-30 06:25] LABS: Hematocrit 48.5 % (37.0-53.0); Hemoglobin* 15.4 gm/dL (13.5-17.5); Mean Corpuscular HGB Conc 32 gm/dL (32-36); Mean Corpuscular Hemoglobin 28 pg (26-34); Mean Corpuscular Volume 87 fL (80-100); Red Blood Count 5.57 m/uL (4.30-5.90); White Blood Count* 6.96 K/uL (4.50-11.00)
[2024-12-30 06:41] LABS: Albumin* 2.5 g/dL (3.3-5.0); Chloride* 112 mmol/L (96-114); Sodium* 142 mmol/L (135-149)
[2024-12-30 06:42] LABS: Potassium* 4.1 mmol/L (3.6-5.1)
[2024-12-30 06:44] LABS: Alanine Aminotransferase* 33 U/L (4-50); Alkaline Phosphatase* 80 U/L (40-150); Anion Gap 5 mEq/L (7-15); Aspartate Amino Transferase* 26 U/L (12-35); Bilirubin Total* 0.5 mg/dL (0.1-1.5); Blood Urea Nitrogen* 17 mg/dL (7-30); Carbon Dioxide* 25 mmol/L (20-32); Creatinine* 1.0 mg/dL (0.5-1.5); Est. Creatinine Clearance* 73.65; Estimated Glomerular Filt Rate 84 ml/min; Total Protein* 5.3 g/dL (6.0-8.3)
[2024-12-30 06:45] LABS: Calcium* 8.2 mg/dL (8.4-10.6); Glucose* 211 mg/dL (60-115)
[2024-12-30 07:11] LABS: Slide Review Reflex No
[2024-12-30] MEDS: PANTOPRAZOLE SODIUM 40 MG INJ IVP (07:56)
--- NOTE | 2024-12-30 08:28 | PM.IMPN1 ---
Assessment and Plan Assessment and plan (1) Small bowel obstruction: Problem comment: - S/p lysis of adhesions, ileocecectomy on 12/29/2024 - NG tube placed 12/26, NPO - general surgery following -12/27: Pt did not pass gas, no BM. Surgeon recs: -NPO, IV fluids -NG tube to low intermittent suction, advance based off of abdominal x-ray. nursing to flush once per shift -Gastrografin study performed yesterday 12/27/2024 -encourage ambulation -12/28: He states that he still have diffuse abdominal pain with some nausea. He denies passing gas or having any stool. Very little amount of fluids is coming through suctioning of his NG tube and is mostly thick fluid. -Abdominal x-ray today showed Similar dilation bowel loops with contrast remaining in the small bowel loops. -on IV fluids for maintenance -12/29: Surgeon to allow a full 48 hours to see if any contrast travels into the colon & If it does not, then Sx may proceed to the operating room. -Cont. NG tube in place to low intermittent suction. -encourage ambulation. -on IV fluids for maintenance 12/30: S/p lysis of adhesions, ileocecectomy on 12/29/2024. -NGT in. NPO. On Zosyn. -Monitor UO and monitor for third spacing. Careful fluid management. -encourage incentive spirometry Status: Acute (2) Hypokalemia: Problem comment: - hypokalemia, K+ 2.7, IV K+ replacement ordered (4 bags). - Ordered add on lab for magnesium, please check the result and replace if necessary. - 4 pm Follow/up K+ lab after replacement, If potassium is still low please order more IV potassium this p.m. - 12/28: improving, K 3.3, will give 3 more bags of potassium chloride IV. (got 2 potassium packs overnight). - 12/29-12/30: Resolved, potassium within normal. Status: Resolved (3) Diet-controlled diabetes mellitus: Problem comment: - last A1C 7.1, previously on metformin but self discontinued this - Restart accuchecks and SSI. I restarted D5NS + 20mEq KCl. Status: Acute (4) Hyperlipidemia: Problem comment: - previously on statin, has stopped this Status: Acute Total Time Spent Total Time Spent: Today I spent 50 minutes seeing the patient, reviewing Expanse and EPIC notes/diagnostics, discussing the care plan with our care time that includes social work, PT/OT, pharmacy, RT, senior care and documenting my impressions and plan in the medical record. Subjective Date Seen: 12/30/24 Interval history: Patient was seen and examined at bedside. Day 1 s/p lysis of adhesions, ileocecectomy. He states that he feels better compared to prior to surgery, though he still has some abdominal pain. He states that he is not short of breath and when I examined him he was laying flat with no difficulty breathing. Lungs clear. Exam Narrative: Exam Narrative: Physical exam GENERAL: No acute distress. NG tube in. HEAD AND NECK: Atraumatic, normocephalic CARDIOVASCULAR: RRR. Normal S1, S2. No murmurs. RESPIRATORY: Clear to auscultation B/L. Good air entry B/L. No wheezes or rhonchi. GASTROINTESTINAL: mildly tender to palpation diffusely. Clean midline dressing. NEUROLOGY: Alert, awake, oriented X 3. Normal speech. PSYCH: Normal mood, normal affect. Const: Vital Signs, click to edit/add: Vital Signs - 24 hr 12/29/24 17:14 12/29/24 17:20 12/29/24 17:25 Temperature 97.4 F L Pulse Rate 86 74 76 Pulse Rate [Pulse Oximeter] Respiratory Rate 18 18 Blood Pressure 125/66 118/66 Blood Pressure [Ri ght Arm] Pulse Oximetry 93 94 93 Oxygen Delivery Me thod Room Air Aerosol M ask Aerosol Mask Oxygen Flow Rate 10 10 Fraction of Inspir ed Oxygen 100 100 12/29/24 17:30 12/29/24 17:35 12/29/24 17:40 Temperature 97.3 F L Pulse Rate 75 74 75 Pulse Rate [Pulse Oximeter] Respiratory Rate 16 20 18 Blood Pressure 110/74 115/73 117/73 Blood Pressure [Ri ght Arm] Pulse Oximetry 94 94 Oxygen Delivery Me thod Aerosol Mask Aerosol Mask Oxygen Flow Rate 10 10 Fraction of Inspir ed Oxygen 100 100 12/29/24 17:45 12/29/24 17:50 12/29/24 17:55 Temperature 97.3 F L Pulse Rate 77 75 75 Pulse Rate [Pulse Oximeter] Respiratory Rate 20 18 20 Blood Pressure 114/76 116/73 117/69 Blood Pressure [Ri ght Arm] Pulse Oximetry 94 93 93 Oxygen Delivery Me thod Aerosol Mask Aerosol Mask Aerosol Mask Oxygen Flow Rate 10 10 10 Fraction of Inspir ed Oxygen 100 100 100 12/29/24 18:00 12/29/24 18:05 12/29/24 18:10 Temperature 97.3 F L Pulse Rate 75 75 76 Pulse Rate [Pulse Oximeter] Respiratory Rate 16 20 20 Blood Pressure 114/69 113/74 113/74 Blood Pressure [Ri ght Arm] Pulse Oximetry 94 95 95 Oxygen Delivery Me thod Aerosol Mask Aerosol Mask Aerosol Mask Oxygen Flow Rate 10 10 10 Fraction of Inspir ed Oxygen 100 100 100 12/29/24 18:15 12/29/24 18:20 12/29/24 18:30 Temperature 97.3 F L 96.3 F L Pulse Rate 76 75 Pulse Rate [Pulse Oximeter] 74 Respiratory Rate 18 22 24 Blood Pressure 112/71 111/75 Blood Pressure [Ri ght Arm] 108/72 Pulse Oximetry 95 95 94 Oxygen Delivery Me thod Aerosol Mask Non Rebreather Mas k Oxygen Flow Rate 10 9 Fraction of Inspir ed Oxygen 100 12/29/24 18:45 12/29/24 19:00 12/29/24 19:16 Temperature 96.4 F L 96.5 F L 96.5 F L Pulse Rate Pulse Rate [Pulse Oximeter] 74 95 72 Respiratory Rate 20 20 20 Blood Pressure Blood Pressure [Ri ght Arm] 110/71 113/71 115/68 Pulse Oximetry 95 95 95 Oxygen Delivery Me thod Non Rebreather Mas k Non Rebreather Mas k Non Rebreather Mas k Oxygen Flow Rate 9 9 9 Fraction of Inspir ed Oxygen 100 12/29/24 19:31 12/29/24 20:00 12/29/24 20:03 Temperature 96.5 F L 96.5 F L Pulse Rate Pulse Rate [Pulse Oximeter] 68 75 75 Respiratory Rate 20 20 20 Blood Pressure Blood Pressure [Ri ght Arm] 120/74 129/78 Pulse Oximetry 96 96 Oxygen Delivery Me thod Non Rebreather Mas k Non Rebreather Mas k Oxygen Flow Rate 9 9 Fraction of Inspir ed Oxygen 100 100 12/29/24 20:07 12/29/24 20:30 12/29/24 21:00 Temperature 96.4 F L 96.7 F L Pulse Rate 73 Pulse Rate [Pulse Oximeter] 71 71 Respiratory Rate 20 20 Blood Pressure Blood Pressure [Ri ght Arm] 124/80 125/80 Pulse Oximetry 97 97 Oxygen Delivery Me thod Non Rebreather Mas k Non Rebreather Mas k Oxygen Flow Rate 8 7 Fraction of Inspir ed Oxygen 100 100 12/29/24 22:00 12/29/24 22:06 12/29/24 22:14 Temperature 96.8 F L Pulse Rate 73 Pulse Rate [Pulse Oximeter] 74 74 Respiratory Rate 18 18 Blood Pressure Blood Pressure [Ri ght Arm] 124/76 Pulse Oximetry 96 Oxygen Delivery Me thod OxyMask Oxygen Flow Rate 4 Fraction of Inspir ed Oxygen 100 12/29/24 22:56 12/29/24 23:00 12/29/24 23:59 Temperature 97 F L 96.9 F L Pulse Rate Pulse Rate [Pulse Oximeter] 79 78 Respiratory Rate 18 18 18 Blood Pressure Blood Pressure [Ri ght Arm] 134/79 126/84 Pulse Oximetry 95 95 94 Oxygen Delivery Me thod OxyMask OxyMask OxyMask Oxygen Flow Rate 2 2 1 Fraction of Inspir ed Oxygen 100 100 100 12/30/24 02:02 12/30/24 02:09 12/30/24 04:00 Temperature 96.9 F L 97.4 F L Pulse Rate 81 Pulse Rate [Pulse Oximeter] 84 84 Respiratory Rate 18 18 Blood Pressure Blood Pressure [Ri ght Arm] 126/85 132/82 Pulse Oximetry 94 93 Oxygen Delivery Me thod OxyMask OxyMask Oxygen Flow Rate 1 1 Fraction of Inspir ed Oxygen 100 100 12/30/24 06:00 12/30/24 07:00 12/30/24 07:00 Temperature 96.7 F L Pulse Rate 95 Pulse Rate [Pulse Oximeter] 88 Respiratory Rate 18 16 Blood Pressure Blood Pressure [Ri ght Arm] 138/95 H Pulse Oximetry 92 92 Oxygen Delivery Me thod OxyMask OxyMask Oxygen Flow Rate 1 1 Fraction of Inspir ed Oxygen 12/30/24 08:00 Temperature 97.5 F L Pulse Rate Pulse Rate [Pulse Oximeter] 104 H Respiratory Rate 16 Blood Pressure Blood Pressure [Ri ght Arm] 132/99 H Pulse Oximetry 92 Oxygen Delivery Me thod OxyMask Oxygen Flow Rate 1 Fraction of Inspir ed Oxygen Labs Labs: Laboratory Results - last 24 hr 12/30/24 06:14 WBC 6.96 RBC 5.57 Hgb 15.4 Hct 48.5 MCV 87 MCH 28 MCHC 32 Plt Count 269 Sodium 142 Potassium 4.1 Chloride 112 Carbon Dioxide 25 Anion Gap 5 L BUN 17 Creatinine 1.0 Estimated Creat Clear 73.65 Estimated GFR 84 Glucose 211 H Calcium 8.2 L Total Bilirubin 0.5 AST 26 ALT 33 Alkaline Phosphatase 80 Total Protein 5.3 L Albumin 2.5 L
--- NOTE | 2024-12-30 09:33 | CRLHL7_ITS ---
For Patients: As a result of the Century Cures Act, medical imaging exams and procedure reports are released immediately into your electronic medical record. You may view this report before your referring provider. If you have questions, please contact your health care provider. INDICATION: Abnormal oxygen saturation. TECHNIQUE: AP portable chest x-ray. COMPARISON: Two-view chest x-ray April 01, 2022. FINDINGS: New enteric tube with its tip in the proximal stomach. Slight linear fibrosis or atelectasis left lung base. Infiltrate or atelectasis at the right lung base. Degenerative change of the shoulders. IMPRESSION: Infiltrate or atelectasis at the right lung base. Radiographic follow-up recommended after appropriate treatment. Dictated by Micky Lopez MD @ 12/30/2024 10:07:03 AM (Electronically Signed)
[2024-12-30] MEDS: ONDANSETRON 2 MG/ML inj 4 MG IVP (09:48)
--- NOTE | 2024-12-30 10:47 | PM.GSPN ---
Subjective Subjective Date Seen: 12/30/24 Interval history: Patient is sitting in a chair this morning. He feels motivated to walk the halls later this afternoon. His abdominal pain still feels distended and painful, but improved compared to yesterday. No concerns. Exam Narrative: Exam Narrative: CV: Tachycardic, regular rhythm HEENT: NG tube in place with thick yellow output in tube, nothing in canister Abdomen: Soft, tender to palpation in right upper quadrant and over incision. Dressing in place clean/dry/intact. Const: Vital Signs, click to edit/add: Vital Signs - 24 hr 12/29/24 17:14 12/29/24 17:20 12/29/24 17:25 Temperature 97.4 F L Pulse Rate 86 74 76 Pulse Rate [Pulse Oximeter] Respiratory Rate 18 18 Blood Pressure 125/66 118/66 Blood Pressure [Ri ght Arm] Pulse Oximetry 93 94 93 Oxygen Delivery Me thod Room Air Aerosol M ask Aerosol Mask Oxygen Flow Rate 10 10 Fraction of Inspir ed Oxygen 100 100 12/29/24 17:30 12/29/24 17:35 12/29/24 17:40 Temperature 97.3 F L Pulse Rate 75 74 75 Pulse Rate [Pulse Oximeter] Respiratory Rate 16 20 18 Blood Pressure 110/74 115/73 117/73 Blood Pressure [Ri ght Arm] Pulse Oximetry 94 94 Oxygen Delivery Me thod Aerosol Mask Aerosol Mask Oxygen Flow Rate 10 10 Fraction of Inspir ed Oxygen 100 100 12/29/24 17:45 12/29/24 17:50 12/29/24 17:55 Temperature 97.3 F L Pulse Rate 77 75 75 Pulse Rate [Pulse Oximeter] Respiratory Rate 20 18 20 Blood Pressure 114/76 116/73 117/69 Blood Pressure [Ri ght Arm] Pulse Oximetry 94 93 93 Oxygen Delivery Me thod Aerosol Mask Aerosol Mask Aerosol Mask Oxygen Flow Rate 10 10 10 Fraction of Inspir ed Oxygen 100 100 100 12/29/24 18:00 12/29/24 18:05 12/29/24 18:10 Temperature 97.3 F L Pulse Rate 75 75 76 Pulse Rate [Pulse Oximeter] Respiratory Rate 16 20 20 Blood Pressure 114/69 113/74 113/74 Blood Pressure [Ri ght Arm] Pulse Oximetry 94 95 95 Oxygen Delivery Me thod Aerosol Mask Aerosol Mask Aerosol Mask Oxygen Flow Rate 10 10 10 Fraction of Inspir ed Oxygen 100 100 100 12/29/24 18:15 12/29/24 18:20 12/29/24 18:30 Temperature 97.3 F L 96.3 F L Pulse Rate 76 75 Pulse Rate [Pulse Oximeter] 74 Respiratory Rate 18 22 24 Blood Pressure 112/71 111/75 Blood Pressure [Ri ght Arm] 108/72 Pulse Oximetry 95 95 94 Oxygen Delivery Me thod Aerosol Mask Non Rebreather Mas k Oxygen Flow Rate 10 9 Fraction of Inspir ed Oxygen 100 12/29/24 18:45 12/29/24 19:00 12/29/24 19:16 Temperature 96.4 F L 96.5 F L 96.5 F L Pulse Rate Pulse Rate [Pulse Oximeter] 74 95 72 Respiratory Rate 20 20 20 Blood Pressure Blood Pressure [Ri ght Arm] 110/71 113/71 115/68 Pulse Oximetry 95 95 95 Oxygen Delivery Me thod Non Rebreather Mas k Non Rebreather Mas k Non Rebreather Mas k Oxygen Flow Rate 9 9 9 Fraction of Inspir ed Oxygen 100 12/29/24 19:31 12/29/24 20:00 12/29/24 20:03 Temperature 96.5 F L 96.5 F L Pulse Rate Pulse Rate [Pulse Oximeter] 68 75 75 Respiratory Rate 20 20 20 Blood Pressure Blood Pressure [Ri ght Arm] 120/74 129/78 Pulse Oximetry 96 96 Oxygen Delivery Me thod Non Rebreather Mas k Non Rebreather Mas k Oxygen Flow Rate 9 9 Fraction of Inspir ed Oxygen 100 100 12/29/24 20:07 12/29/24 20:30 12/29/24 21:00 Temperature 96.4 F L 96.7 F L Pulse Rate 73 Pulse Rate [Pulse Oximeter] 71 71 Respiratory Rate 20 20 Blood Pressure Blood Pressure [Ri ght Arm] 124/80 125/80 Pulse Oximetry 97 97 Oxygen Delivery Me thod Non Rebreather Mas k Non Rebreather Mas k Oxygen Flow Rate 8 7 Fraction of Inspir ed Oxygen 100 100 12/29/24 22:00 12/29/24 22:06 12/29/24 22:14 Temperature 96.8 F L Pulse Rate 73 Pulse Rate [Pulse Oximeter] 74 74 Respiratory Rate 18 18 Blood Pressure Blood Pressure [Ri ght Arm] 124/76 Pulse Oximetry 96 Oxygen Delivery Me thod OxyMask Oxygen Flow Rate 4 Fraction of Inspir ed Oxygen 100 12/29/24 22:56 12/29/24 23:00 12/29/24 23:59 Temperature 97 F L 96.9 F L Pulse Rate Pulse Rate [Pulse Oximeter] 79 78 Respiratory Rate 18 18 18 Blood Pressure Blood Pressure [Ri ght Arm] 134/79 126/84 Pulse Oximetry 95 95 94 Oxygen Delivery Me thod OxyMask OxyMask OxyMask Oxygen Flow Rate 2 2 1 Fraction of Inspir ed Oxygen 100 100 100 12/30/24 02:02 12/30/24 02:09 12/30/24 04:00 Temperature 96.9 F L 97.4 F L Pulse Rate 81 Pulse Rate [Pulse Oximeter] 84 84 Respiratory Rate 18 18 Blood Pressure Blood Pressure [Ri ght Arm] 126/85 132/82 Pulse Oximetry 94 93 Oxygen Delivery Me thod OxyMask OxyMask Oxygen Flow Rate 1 1 Fraction of Inspir ed Oxygen 100 100 12/30/24 06:00 12/30/24 07:00 12/30/24 07:00 Temperature 96.7 F L Pulse Rate 95 Pulse Rate [Pulse Oximeter] 88 Respiratory Rate 18 16 Blood Pressure Blood Pressure [Ri ght Arm] 138/95 H Pulse Oximetry 92 92 Oxygen Delivery Me thod OxyMask OxyMask Oxygen Flow Rate 1 1 Fraction of Inspir ed Oxygen 12/30/24 08:00 12/30/24 10:00 Temperature 97.5 F L 97.2 F L Pulse Rate Pulse Rate [Pulse Oximeter] 104 H 112 H Respiratory Rate 16 18 Blood Pressure Blood Pressure [Ri ght Arm] 132/99 H 111/81 Pulse Oximetry 92 92 Oxygen Delivery Me thod OxyMask Nasal Cannula Oxygen Flow Rate 1 2 Fraction of Inspir ed Oxygen Labs/Imaging Labs Labs: No leukocytosis, hemoglobin 15.4 Imaging Imaging: Chest x-ray obtained by hospitalist. Infiltrate or atelectasis at the right lung base. Progress Note:A&P Assessment and plan (1) Small bowel obstruction: Status: Acute Assessment and Plan: Patient is postop day 1 exploratory laparotomy, extensive lysis of adhesions and ileocecectomy for small-bowel obstruction. Doing well postoperatively. He continues on 1 L nasal cannula. Vital signs stable overnight, some mild tachycardia this morning. His abdomen is soft and appropriately tender. NG tube does have thick output in the tube, but has not had any output since coming back from the operating room. Approximately 1 L of succus was suctioned intraoperatively during the procedure. -continue NPO, IV fluids -IV pain meds as needed -continue IV Zosyn -chest x-ray shows infiltrate versus atelectasis, favor atelectasis on postop day 1. Patient is likely to 3rd space a lot of fluid given the large procedure and amount of time needed in the operating room. -encourage ambulation -SCDs, Lovenox for DVT prophylaxis -recommend Oates be removed later today, keeping this morning to monitor his low urinary output.
[2024-12-30] MEDS: 5 % DEX/0.9 SOD CHL+KCL 20 mEq 1,000 ML 125 ML IV (10:55)
[2024-12-30] MEDS: LACTATED RINGERS 1000 ML 500 ML IV (13:13)
[2024-12-30] MEDS: 5 % DEX/0.9 SOD CHL+KCL 20 mEq 1,000 ML 150 ML IV (13:14)
--- NOTE | 2024-12-30 18:52 | PC.NURSE ---
End of shift report [id number]:? Alert and oriented x 4.? Patient appears withdrawn and irritable throughout the shift.? Pain to abdomen managed with PRN dilaudid, ice and repositioning.? Behaviors indicate relief of pain, patient sitting in chair with breathing even and unlabored and vitals WNL and able to sleep intermittently in chair.? Patient reports poor pain control verbally, MD updated and awaiting recommendation at this time.? NG at 60cm on LIS, dressing changed due to slipping off nose, new dressing secured with mepitac tape.? Small amount of output from NG, surgeon updated with low output and had no concerns at this time, surgeon reported that she suctioned large amount of fluid out during surgery so low NG output expected at this time.? [place] catheter patent, draining small amounts of cloudy, straw to light deborah colored urine.? MD updated on low urine output and order for 500cc bolus at 1300, after bolus patient had 220cc of urine out over 2 hour period.? Urine average of 70cc/hour post bolus.? Bowel sounds absent in all 4 quadrants.? Midline dressing is clean, dry and intact.? Upper abdomen is distended and tender to palpation.? Lung sounds clear, able to wean patient to room air and O2 sats maintained at 90% or greater.? Transferred from bed to chair with SBA.? Education provided regarding indwelling oveido catheter, NG tube and post op teaching, patient does not appear to comprehend teachings and asks repetitive questions and is unable to return verbalization of teachings done.? Patient has requested several times to ?can?t i just drink water or juice and then I can pee? educated patient that he is currently NPO and with NG tube it will suction out oral intake and not assist with increasing urine output.???
[2024-12-30] MEDS: ENOXAPARIN 40 MG/0.4 ML INJ SUBCUT (21:03)
[2024-12-30] MEDS: BENZOCAINE/MENTHOL 1 EACH LOZENGE MUCOUS MEM (22:19)
[2024-12-31] VITALS (9 sets, daily range): BP systolic 124–154; BP diastolic 83–97; PULSE 68–128; RESP 16–20; TEMP 36.3–36.7; O2SAT 92–96; BMI 31.6
[2024-12-31] MEDS: PIPERACILLIN/TAZOBACTAM 3.375 GM in 0.9 % SODIUM CHLORIDE Mini-bag 100 ML IVPB ×4 (00:51→19:04)
[2024-12-31 06:03] LABS: Hematocrit 43.9 % (37.0-53.0); Hemoglobin* 13.9 gm/dL (13.5-17.5); Immature Granulocytes Pct Auto 0.6 %; Mean Corpuscular HGB Conc 32 gm/dL (32-36); Mean Corpuscular Hemoglobin 28 pg (26-34); Mean Corpuscular Volume 87 fL (80-100); RDW Coefficient of Variation % 16.3 % (11.5-15.5); Red Blood Count 5.03 m/uL (4.30-5.90); White Blood Count* 17.15 K/uL (4.50-11.00)
[2024-12-31 06:06] LABS: Immature Granulocytes Abs Auto 0.10 K/uL (0.00-0.30); Lymphocytes Absolute Auto 0.70 K/uL (0.90-2.90); Slide Review Reflex No
[2024-12-31] MEDS: INSULIN ASPART 100 UNIT/ML SUBCUT (06:08)
[2024-12-31 06:15] LABS: Albumin* 2.3 g/dL (3.3-5.0); Chloride* 113 mmol/L (96-114); Potassium* 4.3 mmol/L (3.6-5.1); Sodium* 142 mmol/L (135-149)
[2024-12-31 06:18] LABS: Alanine Aminotransferase* 24 U/L (4-50); Alkaline Phosphatase* 89 U/L (40-150); Anion Gap 2 mEq/L (7-15); Aspartate Amino Transferase* 19 U/L (12-35); Bilirubin Total* 0.5 mg/dL (0.1-1.5); Blood Urea Nitrogen* 27 mg/dL (7-30); Calcium* 8.6 mg/dL (8.4-10.6); Carbon Dioxide* 27 mmol/L (20-32); Creatinine* 1.3 mg/dL (0.5-1.5); Est. Creatinine Clearance* 56.65; Estimated Glomerular Filt Rate 61 ml/min; Glucose* 165 mg/dL (60-115); Total Protein* 5.0 g/dL (6.0-8.3)
--- NOTE | 2024-12-31 07:25 | PC.NURSE ---
Arrived to find the patient alert and oriented and vitally stable. Mood is poor. They are having a lot of pain from the abdomen. PRN dilaudid available and is being taken frequently. Abdominal sounds are absent. NG tube is not producing much output. Currently NPO with ice chips. No signs of edema. Lung sounds dry. Putting out steady amounts of urine at about 50-75 ml per two hours. Midline incision clean dry and intact. No further developments overnight.
--- NOTE | 2024-12-31 08:32 | PM.GSPN ---
Subjective Subjective Date Seen: 12/31/24 Interval history: Patient feels like he is doing better today. He sat in a chair yesterday, did not walk the halls. He still feels bloated, but more bloated on the top of his abdomen and LEs on the bottom. His pain is 7/10 on the top and 5/10 on the bottom. He has not passed gas. Minimal output from his NG tube. He feels very motivated to walk today. Exam Narrative: Exam Narrative: General: Alert and oriented, no acute distress HEENT: NG tube with no output in canister, thick yellow fluid in NG tube Respiratory: 2 L nasal cannula CV: Tachycardic, regular rate Abdomen: Soft, tender to palpation and in upper abdomen, right upper quadrant with some guarding. Soft and nontender in lower abdomen. Midline incision with dressings taking down, small amount of ecchymoses surrounding incision with dennis in place. Const: Vital Signs, click to edit/add: Vital Signs - 24 hr 12/30/24 10:00 12/30/24 11:00 12/30/24 14:24 Temperature 97.2 F L 97.4 F L Pulse Rate 122 H Pulse Rate [Pulse Oximeter] 112 H 101 H Respiratory Rate 18 17 Blood Pressure [Le ft Arm] Blood Pressure [Ri ght Arm] 111/81 119/85 Pulse Oximetry 92 91 Oxygen Delivery Me thod Nasal Cannula Nasal Cannula Oxygen Flow Rate 2 2 12/30/24 14:30 12/30/24 14:30 12/30/24 14:30 Temperature Pulse Rate 104 H Pulse Rate [Pulse Oximeter] 101 H Respiratory Rate 17 17 Blood Pressure [Le ft Arm] Blood Pressure [Ri ght Arm] Pulse Oximetry 92 Oxygen Delivery Me thod Nasal Cannula Oxygen Flow Rate 2 12/30/24 19:17 12/30/24 22:30 12/30/24 22:45 Temperature 97.6 F 97.8 F Pulse Rate 107 H Pulse Rate [Pulse Oximeter] 119 H 107 H Respiratory Rate 18 20 Blood Pressure [Le ft Arm] 123/94 H Blood Pressure [Ri ght Arm] 139/100 H Pulse Oximetry 94 92 Oxygen Delivery Me thod Room Air Room Air Oxygen Flow Rate 12/30/24 23:00 12/31/24 02:07 12/31/24 02:55 Temperature 97.6 F 97.4 F L Pulse Rate Pulse Rate [Pulse Oximeter] 103 H 102 H Respiratory Rate 16 18 18 Blood Pressure [Le ft Arm] Blood Pressure [Ri ght Arm] 143/86 H 124/83 Pulse Oximetry 92 92 93 Oxygen Delivery Me thod Room Air Room Air Room Air Oxygen Flow Rate 12/31/24 07:00 Temperature 97.8 F Pulse Rate Pulse Rate [Pulse Oximeter] 106 H Respiratory Rate 16 Blood Pressure [Le ft Arm] 137/90 H Blood Pressure [Ri ght Arm] Pulse Oximetry 93 Oxygen Delivery Me thod Room Air Oxygen Flow Rate Labs/Imaging Labs Labs: Leukocytosis (17), CRP ordered and pending Progress Note:A&P Assessment and plan (1) Small bowel obstruction: Status: Acute Assessment and Plan: Patient is postop day 2 exploratory laparotomy, extensive lysis of adhesions and ileocecectomy for small-bowel obstruction. No acute events overnight. He has been slightly tachycardic since coming back from the operating room. His blood pressure is stable. His leukocytosis is up this morning (17). Part of this could be postoperative inflammation, patient is at risk for intra-abdominal infection and leak. Will continue to trend. A CRP was added on for today, will also follow this inflammatory marker. Patient was encouraged to ambulate today. Will remove his Oates this morning. -continue NPO, IV fluids -patient has had a 20 lb weight loss in the last 2 months. Intraoperatively this did appear to be a chronic partial obstruction that then progressed to a full obstruction. Recommend TPN be started today. -IV pain meds as needed -continue IV Zosyn -Oates to be removed today -encourage ambulation -SCDs, Lovenox for DVT prophylaxis
[2024-12-31] MEDS: PANTOPRAZOLE SODIUM 40 MG INJ IVP (09:40)
[2024-12-31] MEDS: BENZOCAINE/MENTHOL 1 EACH LOZENGE MUCOUS MEM ×2 (09:40→21:02)
[2024-12-31] MEDS: 5 % DEX/0.9 SOD CHL+KCL 20 mEq 1,000 ML 100 ML IV (09:44)
--- NOTE | 2024-12-31 09:51 | CRLHL7_ITS ---
For Patients: As a result of the Century Cures Act, medical imaging exams and procedure reports are released immediately into your electronic medical record. You may view this report before your referring provider. If you have questions, please contact your health care provider. INDICATION: PICC placement COMPARISON: 12/30/2024 TECHNIQUE: 1 view chest radiograph. FINDINGS: Devices: Left arm PICC distal tip superior cavoatrial junction. NG tube over the left upper quadrant. Lung volumes are moderate. Mildly prominent pulmonary vascular markings. No focal consolidations. No pleural effusion. No pneumothorax. No pneumomediastinum. Heart size is large. Similar mediastinal contours. Bones: No acute findings. IMPRESSION: The left arm PICC distal tip is at the superior cavoatrial junction. Dictated by Marcy Velasquez MD @ 12/31/2024 1:48:41 PM (Electronically Signed)
--- NOTE | 2024-12-31 10:44 | P.IMPN_ITS ---
Assessment and Plan Assessment and plan (1) Small bowel obstruction: Problem comment: - S/p lysis of adhesions, ileocecectomy on 12/29/2024 - NG tube placed 12/26, NPO - general surgery following -12/27: Pt did not pass gas, no BM. Surgeon recs: -NPO, IV fluids -NG tube to low intermittent suction, advance based off of abdominal x-ray. nursing to flush once per shift -Gastrografin study performed yesterday 12/27/2024 -encourage ambulation -12/28: He states that he still have diffuse abdominal pain with some nausea. He denies passing gas or having any stool. Very little amount of fluids is coming through suctioning of his NG tube and is mostly thick fluid. -Abdominal x-ray today showed Similar dilation bowel loops with contrast remaining in the small bowel loops. -on IV fluids for maintenance -12/29: Surgeon to allow a full 48 hours to see if any contrast travels into the colon & If it does not, then Sx may proceed to the operating room. -Cont. NG tube in place to low intermittent suction. -encourage ambulation. -on IV fluids for maintenance 12/30: S/p lysis of adhesions, ileocecectomy on 12/29/2024. -NGT in. NPO. On Zosyn. -Monitor UO and monitor for third spacing. Careful fluid management. -encourage incentive spirometry -12/31: After discussing the case with Dr. Smyth the surgeon, she thinks that he might benefit from TPN at this time with all the weight loss that he had due to obstruction, I discussed with him the need for TPN and he agreed. Urine output stable, Dr Smyth asked for his foleys cath to be taken out. -ordered PICC line placement and a nutrition consult to start TPN. Status: Acute (2) CATRACHITA (acute kidney injury): Problem comment: -Cr 0.3 increase over 24 hrs. UOP stable ~ 0.4 cc/kg/hr -strict I&Os, I talked to the nurses and they will make sure he knows about it. Status: Acute (3) Hypokalemia: Problem comment: - hypokalemia, K+ 2.7, IV K+ replacement ordered (4 bags). - Ordered add on lab for magnesium, please check the result and replace if necessary. - 4 pm Follow/up K+ lab after replacement, If potassium is still low please order more IV potassium this p.m. - 12/28: improving, K 3.3, will give 3 more bags of potassium chloride IV. (got 2 potassium packs overnight). - Resolved, potassium within normal. Status: Resolved (4) Diet-controlled diabetes mellitus: Problem comment: - last A1C 7.1, previously on metformin but self discontinued this - Restart accuchecks and SSI. I restarted D5NS + 20mEq KCl. Status: Acute (5) Hyperlipidemia: Problem comment: - previously on statin, has stopped this Status: Acute Total Time Spent Total Time Spent: Today I spent 50 minutes seeing the patient, reviewing Expanse and EPIC notes/diagnostics, discussing the care plan with our care time that includes social work, PT/OT, pharmacy, RT, fpc and documenting my impressions and plan in the medical record. Subjective Date Seen: 12/31/24 Interval history: Patient was seen and examined at bedside. Day 2 s/p lysis of adhesions, ileocecectomy. He states that he feel okay in general but still has some abdominal pain. He is not passing gas yet. After discussing the case with Dr. Smyth the surgeon, she thinks that he might benefit from TPN at this time with all the weight loss that he had due to obstruction, I discussed with him the need for TPN and he agreed. Urine output stable, Dr Smyth asked for his foleys cath to be taken out. Exam Narrative: Exam Narrative: GENERAL: No acute distress. NG tube in. HEAD AND NECK: Atraumatic, normocephalic CARDIOVASCULAR: RRR. Normal S1, S2. No murmurs. RESPIRATORY: Clear to auscultation B/L. Good air entry B/L. No wheezes or rhonchi. GASTROINTESTINAL: mildly tender to palpation diffusely. Clean midline dressing. NEUROLOGY: Alert, awake, oriented X 3. Normal speech. Const: Vital Signs, click to edit/add: Vital Signs - 24 hr 12/30/24 11:00 12/30/24 14:24 12/30/24 14:30 Temperature 97.4 F L Pulse Rate 122 H 104 H Pulse Rate [Pulse Oximeter] 101 H Respiratory Rate 17 Blood Pressure [Le ft Arm] Blood Pressure [Ri ght Arm] 119/85 Pulse Oximetry 91 Oxygen Delivery Me thod Nasal Cannula Oxygen Flow Rate 2 12/30/24 14:30 12/30/24 14:30 12/30/24 19:17 Temperature 97.6 F Pulse Rate Pulse Rate [Pulse Oximeter] 101 H 119 H Respiratory Rate 17 17 18 Blood Pressure [Le ft Arm] Blood Pressure [Ri ght Arm] 139/100 H Pulse Oximetry 92 94 Oxygen Delivery Me thod Nasal Cannula Room Air Oxygen Flow Rate 2 12/30/24 22:30 12/30/24 22:45 12/30/24 23:00 Temperature 97.8 F Pulse Rate 107 H Pulse Rate [Pulse Oximeter] 107 H Respiratory Rate 20 16 Blood Pressure [Le ft Arm] 123/94 H Blood Pressure [Ri ght Arm] Pulse Oximetry 92 92 Oxygen Delivery Me thod Room Air Room Air Oxygen Flow Rate 12/31/24 02:07 12/31/24 02:55 12/31/24 07:00 Temperature 97.6 F 97.4 F L 97.8 F Pulse Rate Pulse Rate [Pulse Oximeter] 103 H 102 H 106 H Respiratory Rate 18 18 16 Blood Pressure [Le ft Arm] 137/90 H Blood Pressure [Ri ght Arm] 143/86 H 124/83 Pulse Oximetry 92 93 93 Oxygen Delivery Me thod Room Air Room Air Room Air Oxygen Flow Rate 12/31/24 07:00 12/31/24 07:00 12/31/24 09:00 Temperature Pulse Rate 91 Pulse Rate [Pulse Oximeter] 106 H Respiratory Rate 16 16 Blood Pressure [Le ft Arm] Blood Pressure [Ri ght Arm] Pulse Oximetry 95 Oxygen Delivery Me thod Room Air Oxygen Flow Rate Labs Labs: Laboratory Results - last 24 hr 12/31/24 05:50 WBC 17.15 H RBC 5.03 Hgb 13.9 Hct 43.9 MCV 87 MCH 28 MCHC 32 RDW Coeff of Amy 16.3 H Plt Count 248 Neut % (Auto) 91.7 H Lymph % (Auto) 4.3 L [place] % (Auto) 3.4 Eos % (Auto) 0.0 Baso % (Auto) 0.0 Neut # (Auto) 15.70 H Lymph # (Auto) 0.70 L [place] # (Auto) 0.60 Eos # (Auto) 0.00 Baso # (Auto) 0.00 Abs Immat Gran (auto) 0.10 Imm/Tot Granulo (auto) 0.6 Sodium 142 Potassium 4.3 Chloride 113 Carbon Dioxide 27 Anion Gap 2 L BUN 27 Creatinine 1.3 Estimated Creat Clear 56.65 Estimated GFR 61 Glucose 165 H Calcium 8.6 Total Bilirubin 0.5 AST 19 ALT 24 Alkaline Phosphatase 89 C-Reactive Protein 36.6 H Total Protein 5.0 L Albumin 2.3 L
[2024-12-31] MEDS: ONDANSETRON 2 MG/ML inj 4 MG IVP (12:10)
[2024-12-31] MEDS: AA 5 %/CALCIUM/LYTES/DEXT 20 % 2,000 ML 20 ML IV (15:41)
[2024-12-31] MEDS: LACTATED RINGERS 1000 ML 1,000 ML 100 ML IV (16:46)
--- NOTE | 2024-12-31 18:32 | W.PM.CROSSCO ---
Subjective Subjective Time Seen by Provider: 18:45 Date Seen: 12/31/24 Interval history: I was checking in with staff and they mentioned he gets angry and appears a little SOB with ambulation. Nurse notes his lungs have been clear. He is tachycardic at times, especially with ambulation. His UO is slightly on the low side. Rodo says he does not want to walk or transfer from the bed to chair because his abdomen was cut open and he has no strength there anymore. He started TPN today. His left arm IV infiltrated earlier today. Objective Objective Data Details: T 98.3, BP 136/74, P 68, RR 20, O2 sats 96% on RA. General: No acute distress. Sitting in bedside chair. Appears comfortable. Awake, alert, oriented. No pallor. No jaundice. Cardiovascular: Mildly tachycardic, regular. No murmurs, gallops, or rubs. Respiratory: Clear to auscultation bilaterally. No wheezes or crackles. Abdomen: Postsurgical abdomen, bandage has a small amount of serosanguineous drainage at the inferior aspect. Genitourinary: Scrotal edema is present, no erythema. Extremities: Left lower arm 1+ pitting edema. Bilateral lower extremities 1+ pitting edema. Assessment and Plan Assessment and plan (1) Small bowel obstruction: Problem comment: - S/p lysis of adhesions, ileocecectomy on 12/29/2024 - NG tube placed 12/26, NPO - general surgery following -12/27: Pt did not pass gas, no BM. Surgeon recs: -NPO, IV fluids -NG tube to low intermittent suction, advance based off of abdominal x-ray. nursing to flush once per shift -Gastrografin study performed yesterday 12/27/2024 -encourage ambulation -12/28: He states that he still have diffuse abdominal pain with some nausea. He denies passing gas or having any stool. Very little amount of fluids is coming through suctioning of his NG tube and is mostly thick fluid. -Abdominal x-ray today showed Similar dilation bowel loops with contrast remaining in the small bowel loops. -on IV fluids for maintenance -12/29: Surgeon to allow a full 48 hours to see if any contrast travels into the colon & If it does not, then Sx may proceed to the operating room. -Cont. NG tube in place to low intermittent suction. -encourage ambulation. -on IV fluids for maintenance 12/30: S/p lysis of adhesions, ileocecectomy on 12/29/2024. -NGT in. NPO. On Zosyn. -Monitor UO and monitor for third spacing. Careful fluid management. -encourage incentive spirometry -12/31: After discussing the case with Dr. Smyth the surgeon, she thinks that he might benefit from TPN at this time with all the weight loss that he had due to obstruction, I discussed with him the need for TPN and he agreed. Urine output stable, Dr Smyth asked for his foleys cath to be taken out. -ordered PICC line placement and a nutrition consult to start TPN. Status: Acute (2) CATRACHITA (acute kidney injury): Problem comment: -Cr 0.3 increase over 24 hrs. UOP stable ~ 0.4 cc/kg/hr -strict I&Os, I talked to the nurses and they will make sure he knows about it. Status: Acute Plan It appears that he is 3rd spacing and edematous in the scrotum and lower extremities likely secondary to the pressure from his abdomen. I think that despite the edema, he is actually intravascularly depleted. His lungs are clear, his creatinine is elevated at 1.3 today up from 1 yesterday, and he is mildly tachycardic with slightly low urine outputs. For now I will continue the current plan of care. He is on maintenance fluids along with TPN. I do note that patient's white count this morning was elevated at 17. He has been afebrile. If he becomes hypoxic or more short of breath, consider chest x-ray and dose of Lasix. If urine output drops or blood pressures are low, could consider a small fluid bolus verses albumin. Another consideration is PE, but I think that atelectasis and poor reserve from not being able to take a deep breath while his abdomen is very distended is more likely. He has not been hypoxic and he has been on enoxaparin at a low dose to prevent DVTs. Total Time Spent Total Time Spent: Today I spent 50 minutes seeing the patient, reviewing Expanse and EPIC notes/diagnostics, discussing the care plan with our care time that includes social work, PT/OT, pharmacy, RT, [facility] and documenting my impressions and plan in the medical record.
--- NOTE | 2024-12-31 18:55 | PC.NURSE ---
[id number]: Pt HR tachycardic ; >130 intermittently w/ movement and physial exertion. notified. Afebrile. AOx4. Pt. has two abd pads on incisional site vertically on abd. Scant drainage on bottom of lower abd pad. Pt. report nausea and pain. Meds given for pain and nausea. See EMAR. PICC placed. PICC biofilm some blood, contained in dressing. Peripheral IV sites removed. Edema on R hand. Elevated with tubi bridge welder intermittently throughout shift. TPN started, see EMAR. notified of tachycardia and edema.
[2024-12-31] MEDS: ENOXAPARIN 40 MG/0.4 ML INJ SUBCUT (21:02)
[2025-01-01] VITALS (8 sets, daily range): BP systolic 112–146; BP diastolic 71–95; PULSE 81–102; RESP 16–18; TEMP 36.3–37; O2SAT 93–97
[2025-01-01] MEDS: PIPERACILLIN/TAZOBACTAM 3.375 GM in 0.9 % SODIUM CHLORIDE Mini-bag 100 ML IVPB ×4 (01:03→18:33)
[2025-01-01] MEDS: BENZOCAINE/MENTHOL 1 EACH LOZENGE MUCOUS MEM ×3 (02:32→21:42)
[2025-01-01] MEDS: LACTATED RINGERS 1000 ML 1,000 ML 100 ML IV ×2 (04:32→19:03)
[2025-01-01 06:19] LABS: Hematocrit 35.9 % (37.0-53.0); Hemoglobin* 11.7 gm/dL (13.5-17.5); Immature Granulocytes Pct Auto 0.8 %; Lymphocytes Absolute Auto 0.70 K/uL (0.90-2.90); Mean Corpuscular HGB Conc 33 gm/dL (32-36); Mean Corpuscular Hemoglobin 28 pg (26-34); Mean Corpuscular Volume 86 fL (80-100); RDW Coefficient of Variation % 16.8 % (11.5-15.5); Red Blood Count 4.16 m/uL (4.30-5.90); White Blood Count* 13.62 K/uL (4.50-11.00)
[2025-01-01 06:27] LABS: Immature Granulocytes Abs Auto 0.10 K/uL (0.00-0.30); Slide Review Reflex No
[2025-01-01 06:29] LABS: Chloride* 116 mmol/L (96-114); Potassium* 3.8 mmol/L (3.6-5.1); Sodium* 143 mmol/L (135-149)
[2025-01-01 06:32] LABS: Anion Gap 0 mEq/L (7-15); Blood Urea Nitrogen* 27 mg/dL (7-30); Carbon Dioxide* 27 mmol/L (20-32); Creatinine* 1.0 mg/dL (0.5-1.5); Est. Creatinine Clearance* 73.65; Estimated Glomerular Filt Rate 84 ml/min
[2025-01-01 06:33] LABS: Calcium* 8.3 mg/dL (8.4-10.6); Glucose* 110 mg/dL (60-115)
--- NOTE | 2025-01-01 07:18 | PC.NURSE ---
Arrived to find the patient alert and oriented. Vitally tachycardic. Tele shows sinus tachycardia with a wide QRS. Midline incision appears healthy. There is active serous discharge that leaks out the bottom of the incision. The whole area is covered with an absorbent dressing. Changed at shift start due to saturation. The patient?s abdomen is very large and rounded. Notable warts and sores in genital region. Swelling of the legs. The right is larger than the left. No pitting. TEDS have been applied. SCD?s declined. NG tube is in place producing small amounts of dark green fluid. 200 ml by end of shift. This tube was readjusted at shift start to its original position of 60, the tube having been tugged outward over time. Pain has been maintained at around 7/10 overnight. Tolerable. Using ice packs. This pain being located in the incisional area. Primarily the upper area of the incision. Lung sounds dry. Urinating well. TPN and maintenance fluid running through his double lumen PICC. No major developments overnight.?
--- NOTE | 2025-01-01 08:11 | PM.GSPN ---
Subjective Subjective Date Seen: 01/01/25 Interval history: Patient feels like he is doing better today. Pain is about the same, but less distention. Feels weak since surgery. He is planning on walking the halls this morning. He wants some juice or broth, but understands he can have it while the NG tube is in place. He denies any nausea. He was having reflux when he 1st came into the hospital, but this has improved. Exam Narrative: Exam Narrative: General: Alert and oriented, nontoxic CV: Heart rate in the 90s when sitting in a chair, well perfused, regular rhythm Respiratory: Maintained on room air, productive cough HEENT: NG tube in place, bile tinged fluid Abdomen: Distended, tender to palpation in upper quadrants, more significant tenderness to palpation with some mild guarding in right upper quadrant. Dressing removed, dennis in place. Lower aspect of incision with some serous fluid draining. Const: Vital Signs, click to edit/add: Vital Signs - 24 hr 12/31/24 09:00 12/31/24 11:00 12/31/24 15:00 Temperature 98 F 97.6 F Pulse Rate 91 Pulse Rate [Pulse Oximeter] 104 H 101 H Respiratory Rate 16 16 Blood Pressure [Le ft Arm] Blood Pressure [Ri ght Arm] 141/92 H 130/86 Pulse Oximetry 93 [facility] 12/31/24 15:00 12/31/24 15:00 12/31/24 16:00 Temperature Pulse Rate 101 H Pulse Rate [Pulse Oximeter] 68 Respiratory Rate 20 Blood Pressure [Le ft Arm] Blood Pressure [Ri ght Arm] Pulse Oximetry 96 [facility] 12/31/24 19:30 12/31/24 23:00 12/31/24 23:00 Temperature 98.1 F Pulse Rate Pulse Rate [Pulse Oximeter] 128 H 104 H Respiratory Rate 18 18 Blood Pressure [Le ft Arm] Blood Pressure [Ri ght Arm] 135/92 H Pulse Oximetry 95 94 [facility] Room Air 12/31/24 23:00 12/31/24 23:00 01/01/25 02:40 Temperature 97.9 F 97.4 F L Pulse Rate 103 H Pulse Rate [Pulse Oximeter] 104 H 96 Respiratory Rate 18 16 Blood Pressure [Le ft Arm] 154/97 H Blood Pressure [Ri ght Arm] 136/85 Pulse Oximetry 94 93 Oxygen Delivery Me thod Room Air Room Air Labs/Imaging Labs Labs: Leukocytosis trending down (17--13) CRP is stable at 37 Imaging Imaging: No new imaging Progress Note:A&P Assessment and plan (1) Small bowel obstruction: Status: Acute Assessment and Plan: Patient is postop day 3 exploratory laparotomy, extensive lysis of adhesions and ileocecectomy for small-bowel obstruction. No acute events overnight. Patient is still tachycardic with movement, heart rate in the 80s and 90s at rest. Vital signs otherwise stable. Afebrile. Leukocytosis is trending down (17--13). CRP is elevated but stable at 37. NG tube output is not as thick, continues to be bile tinged. Patient not yet passing gas. TPN started yesterday for nutrition. -continue NPO, IV fluids -TPN -IV pain meds as needed -continue IV Zosyn -encourage ambulation -SCDs, Lovenox for DVT prophylaxis
[2025-01-01] MEDS: PANTOPRAZOLE SODIUM 40 MG INJ IVP (09:30)
--- NOTE | 2025-01-01 09:43 | NUTR.NU ---
RDN with nutrition follow-up for TPN tolerance. Potassium WNL today at 3.8, Glucose WNL at 110, Calcium low at 8.3, Phosphorus low at 2.2, and Magnesium WNL at 2.0. Pharmacy to assess and replace electrolytes as needed and appropriate. Current weight 213lbs, height 5ft 9in, and BMI 31.5 kg/m2. RDN will continue to follow weight trends and fluid status during hospitalization. Patient currently receiving TPN (20% dextrose, 5% amino acids) at 20mls/hr x 24 hours and will advance by 10mls/hr for the next 24 hours at 1400 today. Monitor for further advancement. RDN will re-assess TPN tomorrow morning. Ultimately goal rate of 80 mls/hr with 250 mls 20% lipid emulsion 3x/week. At goal rate this provides 1904 kcals, 96 grams protein, and 1920 mls fluid. RDN will continue to monitor for tolerance, labs, weight, refeeding syndrome, and follow-up as needed.
--- NOTE | 2025-01-01 11:52 | P.IMPN_ITS ---
Assessment and Plan Assessment and plan (1) Small bowel obstruction: Problem comment: - S/p lysis of adhesions, ileocecectomy on 12/29/2024 - NG tube placed 12/26, NPO - general surgery following -12/27: Pt did not pass gas, no BM. Surgeon recs: -NPO, IV fluids -NG tube to low intermittent suction, advance based off of abdominal x-ray. nursing to flush once per shift -Gastrografin study performed yesterday 12/27/2024 -encourage ambulation -12/28: He states that he still have diffuse abdominal pain with some nausea. He denies passing gas or having any stool. Very little amount of fluids is coming through suctioning of his NG tube and is mostly thick fluid. -Abdominal x-ray today showed Similar dilation bowel loops with contrast remaining in the small bowel loops. -on IV fluids for maintenance -12/29: Surgeon to allow a full 48 hours to see if any contrast travels into the colon & If it does not, then Sx may proceed to the operating room. -Cont. NG tube in place to low intermittent suction. -encourage ambulation. -on IV fluids for maintenance 12/30: S/p lysis of adhesions, ileocecectomy on 12/29/2024. -NGT in. NPO. On Zosyn. -Monitor UO and monitor for third spacing. Careful fluid management. -encourage incentive spirometry -12/31: After discussing the case with Dr. Smyth the surgeon, she thinks that he might benefit from TPN at this time with all the weight loss that he had due to obstruction, I discussed with him the need for TPN and he agreed. Urine output stable, Dr Smyth asked for his foleys cath to be taken out. -ordered PICC line placement and a nutrition consult to start TPN. 01/01: PICC line was inserted yesterday patient is tolerating TPN. Low phosphorous, will replace and monitor. Stable urine output. Continue IV antibiotics. Status: Acute (2) Hypophosphatemia: Problem comment: Lower lip below phosphorus at 2.2 Will replace and monitor. Status: Acute (3) CATRACHITA (acute kidney injury): Problem comment: -Cr 0.3 increase over 24 hrs. UOP stable ~ 0.4 cc/kg/hr -strict I&Os, I talked to the nurses and they will make sure he knows about it. -01/01: CATRACHITA is resolving, his serum creatinine is back to 1. Status: Resolved (4) Hypokalemia: Problem comment: - hypokalemia, K+ 2.7, IV K+ replacement ordered (4 bags). - Ordered add on lab for magnesium, please check the result and replace if necessary. - 4 pm Follow/up K+ lab after replacement, If potassium is still low please order more IV potassium this p.m. - 12/28: improving, K 3.3, will give 3 more bags of potassium chloride IV. (got 2 potassium packs overnight). - Resolved, potassium within normal. Status: Resolved (5) Diet-controlled diabetes mellitus: Problem comment: - last A1C 7.1, previously on metformin but self discontinued this - Restart accuchecks and SSI. I restarted D5NS + 20mEq KCl. Status: Acute (6) Hyperlipidemia: Problem comment: - previously on statin, has stopped this Status: Acute Total Time Spent Total Time Spent: Today I spent 50 minutes seeing the patient, reviewing Expanse and EPIC notes/diagnostics, discussing the care plan with our care time that includes social work, PT/OT, pharmacy, RT, care home and documenting my impressions and plan in the medical record. Subjective Date Seen: 01/01/25 Interval history: Patient was seen and examined at bedside today. He states that today he feels a bit better. He did not pass gas yet. The fluid suctioned from his NG tube is less thick and bilious in color. Patient had a PICC line inserted yesterday and he was started on TPN. Urine output is stable. Will need to replace his phosphorus. Exam Narrative: Exam Narrative: GENERAL: No acute distress. NG tube in. HEAD AND NECK: Atraumatic, normocephalic CARDIOVASCULAR: RRR. Normal S1, S2. No murmurs. RESPIRATORY: Clear to auscultation B/L. Good air entry B/L. No wheezes or rhonchi. GASTROINTESTINAL: mildly tender to palpation diffusely. Clean midline dressing. NEUROLOGY: Alert, awake, oriented X 3. Normal speech. Const: Vital Signs, click to edit/add: Vital Signs - 24 hr 12/31/24 15:00 12/31/24 15:00 12/31/24 15:00 Temperature 97.6 F Pulse Rate Pulse Rate [Pulse Oximeter] 101 H 68 Respiratory Rate 16 20 Blood Pressure [Le ft Arm] Blood Pressure [Ri ght Arm] 130/86 Pulse Oximetry 96 96 Oxygen Delivery Me thod Room Air Room Air 12/31/24 16:00 12/31/24 19:30 12/31/24 23:00 Temperature 98.1 F Pulse Rate 101 H Pulse Rate [Pulse Oximeter] 128 H 104 H Respiratory Rate 18 Blood Pressure [Le ft Arm] Blood Pressure [Ri ght Arm] 135/92 H Pulse Oximetry 95 Oxygen Delivery Me thod Room Air 12/31/24 23:00 12/31/24 23:00 12/31/24 23:00 Temperature 97.9 F Pulse Rate 103 H Pulse Rate [Pulse Oximeter] 104 H Respiratory Rate 18 18 Blood Pressure [Le ft Arm] 154/97 H Blood Pressure [Ri ght Arm] Pulse Oximetry 94 94 [facility] 01/01/25 02:40 01/01/25 07:00 01/01/25 07:00 Temperature 97.4 F L 97.5 F L Pulse Rate Pulse Rate [Pulse Oximeter] 96 102 H Respiratory Rate 16 16 16 Blood Pressure [Le ft Arm] Blood Pressure [Ri ght Arm] 136/85 112/71 Pulse Oximetry 93 93 93 [facility] Room Air Room Air 01/01/25 08:21 Temperature Pulse Rate 101 H Pulse Rate [Pulse Oximeter] Respiratory Rate Blood Pressure [Le ft Arm] Blood Pressure [Ri ght Arm] Pulse Oximetry Oxygen Delivery Tn thod Labs Labs: Laboratory Results - last 24 hr 01/01/25 06:00 WBC 13.62 H RBC 4.16 L Hgb 11.7 L Hct 35.9 L MCV 86 MCH 28 MCHC 33 RDW Coeff of Amy 16.8 H Plt Count 211 Neut % (Auto) 91.5 H Lymph % (Auto) 5.1 L Calhoun % (Auto) 2.6 Eos % (Auto) 0.0 Baso % (Auto) 0.0 Neut # (Auto) 12.50 H Lymph # (Auto) 0.70 L Calhoun # (Auto) 0.40 Eos # (Auto) 0.00 Baso # (Auto) 0.00 Abs Immat Gran (auto) 0.10 Imm/Tot Granulo (auto) 0.8 Sodium 143 Potassium 3.8 Chloride 116 H Carbon Dioxide 27 Anion Gap 0 L BUN 27 Creatinine 1.0 Estimated Creat Clear 73.65 Estimated GFR 84 Glucose 110 Calcium 8.3 L Phosphorus 2.2 L Magnesium 2.0 C-Reactive Protein 36.7 H
[2025-01-01] MEDS: POTASSIUM PHOSPHATES 15 MMOL in 0.9 % SODIUM CHLORIDE 500 ML 500 ML 101 MMOL IVPB (12:52)
--- NOTE | 2025-01-01 14:26 | PC.SOCIAL ---
Addendum entered and electronically signed by Nunu Grajeda LCSW 01/01/25 14:31: When asked about PCP, patient states that he sees Dr. Baca at [facility]. 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 Assessment completed with: Patient 2.??? Pt lives at address and phone number on face sheet? Own home, alone 3.?Insurance information? on face sheet is correct? Yes 4.?Contacts? on face sheet are correct? Yes 6.??? Does pt have a Healthcare Directive, POLST or Guardian? No, not interested at this time. 7.??? Who is the pt?s main source/sources of emotional/physical support? Son and no one else. Patient states he is a private person. 8.??? Prior to admission did pt need assistance? No 10. Was Home Health being provided, by what agency? No Home Health Care Services 11. Does pt use/have medical equipment at home already? What? No 12. Will there be a need for additional assistance at discharge and is this available in previous setting? No 13. If pt needs to go to a higher level of care, are they open to this and do they have facilities they are interested in? Patient will not need higher level of care at this time. 14. How would pt plan to transport at discharge? Patient has own car still in hospital parking lot. 15. Is there anyone pt would like child welfare social worker to contact to discuss discharge plans? No
--- NOTE | 2025-01-01 16:47 | PC.NURSE ---
Addendum entered by Irma Venegas RN 01/01/25 17:22: When nursing went to update pt. on plan of care, pt. became belligerent. Pt. asserted that nursing was trying to choke and kill him with the NG Tube. Nursing attempted to educate pt. on NG Tube migration however, pt. was unreceptive. Pt. continued to yell and swear, and threatened to bring a lawsuit against nursing. Pt. was informed that hostile interactions will not be tolerated. Nursing care transferred to Zahira Mitchell RN. Original Note: Pt. ambulated in hallway x 2 with walker and SBA. Bowel sounds hypoactive. Not passing flatus yet. Dilaudid used for pain control. At approximately 1610 pt. put concrete boom operator light and C/O coughing and SOB. NG Tube discovered to be at 20cm, when it had previously been at 60cm. NG Tube removed and Dr. Smyth updated. Dr. Smyth stated to leave the NG Tube out and limit the amount of ice chips pt. takes orally.
[2025-01-01] MEDS: AA 5 %/CALCIUM/LYTES/DEXT 20 % 2,000 ML 30 ML IV (18:15)
--- NOTE | 2025-01-01 19:39 | PC.NURSE ---
Nursing Care Hours: [id number] Pt this shift irritable. Repeating same statements of frustration over mistakes that nurses and doctors. Pt spent time with nurse manager culinary and co supervisor grounds and landscape to go over POC. Pt appeared to have calm down but continues to focus on the same stories that have been frustrating him. Assembler Production Line attempted to change topic by asking pt about his hobby of singing and what type of music he is interested in. Pt then started negative comments about how new kids want to control everything in the music industry and how people use to make fun of him for wearing rings and nail chinese. Pt pain treated with IV meds per JUL. Went for walk in the sanchez with SBA. Denies nausea. Instructed to limit ice chips with NG out to avoid pain or nausea.
[2025-01-01] MEDS: ENOXAPARIN 40 MG/0.4 ML INJ SUBCUT (21:36)
[2025-01-01] MEDS: ONDANSETRON 2 MG/ML inj 4 MG IVP (23:21)
[2025-01-02] VITALS (7 sets, daily range): BP systolic 113–144; BP diastolic 73–88; PULSE 66–81; RESP 14–18; TEMP 36.2–36.8; O2SAT 90–94
[2025-01-02] MEDS: PIPERACILLIN/TAZOBACTAM 3.375 GM in 0.9 % SODIUM CHLORIDE Mini-bag 100 ML IVPB ×4 (00:26→19:05)
--- NOTE | 2025-01-02 03:53 | PC.NURSE ---
Pt's primary RN approached this justowriter operator at approximately 0300 to ask if this justowriter operator as charge master analyst would be willing to check pt's blood pressure as pt was upset that his primary nurse was not wearing gloves when assessing blood pressure. Cold Meat Cook knocked on pt's door, entered room and cleaned hands before donning gloves per pt request. Pt's primary RN was also present in the room. Cold Meat Cook asked if I could obtain pt's blood pressure to which pt was agreeable. Pt then said, See... she's wearing gloves. 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 (asked toward his primary RN). This justowriter operator explained to pt that as general protocol gloves are used if pt is on precautions or if there is risk of bodily fluid exposure (this pt is not on precautions at this time) but that gloves can be worn. Pt attempted to engage in argument with staff. His primary RN asked pt if he would like to have daily weight obtained with 0300 VS check to minimize times of having to wake him up which pt replied, I can't do the standing scale. You'll have to get a bed weight. Pt is able to safely ambulate with staff. Pt's primary RN explained to pt that standing weight is preferred if able to ensure accuracy of daily weights. Pt then stated, You're not complying with patient abilities. This justowriter operator explained to patient that bed weight could be obtained if he was refusing to have standing weight obtained with staff assistance and that his primary RN was only informing patient of what's encouraged in order to obtain accurate daily weights. Cold Meat Cook and patient's primary RN then left pt room after assisting him and ensured door was shut per his request. Cold Meat Cook updated warehouse stock clerk regarding pt's argumentative behaviors.
[2025-01-02] MEDS: LACTATED RINGERS 1000 ML 1,000 ML 100 ML IV (05:08)
[2025-01-02 06:08] LABS: Hematocrit 35.0 % (37.0-53.0); Hemoglobin* 11.4 gm/dL (13.5-17.5); Immature Granulocytes Pct Auto 0.2 %; Mean Corpuscular HGB Conc 33 gm/dL (32-36); Mean Corpuscular Hemoglobin 28 pg (26-34); Mean Corpuscular Volume 86 fL (80-100); RDW Coefficient of Variation % 16.9 % (11.5-15.5); Red Blood Count 4.09 m/uL (4.30-5.90); White Blood Count* 15.20 K/uL (4.50-11.00)
[2025-01-02 06:12] LABS: Immature Granulocytes Abs Auto 0.00 K/uL (0.00-0.30); Lymphocytes Absolute Auto 1.00 K/uL (0.90-2.90); Slide Review Reflex No
[2025-01-02 06:22] LABS: Chloride* 115 mmol/L (96-114); Sodium* 143 mmol/L (135-149)
[2025-01-02 06:23] LABS: Potassium* 3.6 mmol/L (3.6-5.1)
[2025-01-02 06:25] LABS: Blood Urea Nitrogen* 21 mg/dL (7-30); Creatinine* 0.9 mg/dL (0.5-1.5); Est. Creatinine Clearance* 73.65; Estimated Glomerular Filt Rate 95 ml/min
[2025-01-02 06:26] LABS: Anion Gap 2 mEq/L (7-15); Calcium* 8.2 mg/dL (8.4-10.6); Carbon Dioxide* 26 mmol/L (20-32); Glucose* 113 mg/dL (60-115)
--- NOTE | 2025-01-02 06:27 | PC.NURSE ---
Pt independently removed his tele leads and box at this time and is refusing to have kept in place despite reminder and education of why tele monitoring has been ordered. Tele placed on standby at this time as pt is refusing to wear and states, It's not my fault I have to wear it because I got sent into a mild heart attack. One less thing on, the better.
--- NOTE | 2025-01-02 06:32 | PC.NURSE ---
Shift note: Patient was nice to nurse at the start of the shift until 0130 when nurse went to his room to stop the IV antibiotic which was set up at 0030. Patient stated that per state policy of healthcare everybody entering patient's room should wear gloves. So he demanded that advertising writer wear gloves. He added that he never noticed the advertising writer wearing gloves to check his blood pressure. Compliance Professional attempted to explain to patient that we do not wear gloves just because we enter patient?s room, except when the patient is on precaution. Also, not every procedure demands wearing gloves, especially V/S monitoring, assessment or just entering a patient's room. Patient was becoming angry. At that time, patient changed the topic and mentioned that during IV antibiotic administration he felt some spillage of water on his left hand. Nurse apologized for that. He added that he does not have to call to get his urinal emptied, nurse needs to know that he will use the urinal and should check regularly to make sure the urinal gets emptied. Patient mentioned that he will need to report to management about the fact that advertising writer did not wear gloves to check his BP and will need to involve his Foreign Food Specialty Cook. Patient mentioned again that, at one time his door was not closed all the way and needed to call somebody to close it. He said it is a violation of policy and will take it on. Patient refused a Bp check by nurse and demanded a charge-nurse check Bp with gloves. Charge- nurse called and offered to check Bp with gloves. Patient declined standing scale for weight check but insisted on using the bed scale. Nurse attempted to explain to the patient about the accuracy of the standing scale compared to the bed scale but the patient did not want to listen. Bed scale was used per patient?s preference. Patient decided he wanted different nurse to take of him instead advertising writer who was the originally assigned nurse. Charge-nurse accepted to continue with patient with the help from other nurses. Compliance Professional was informed this morning that patient discontinued the telemetry for personal reason. Details documented by charge-nurse.
[2025-01-02] MEDS: ONDANSETRON 2 MG/ML inj 4 MG IVP (06:51)
--- NOTE | 2025-01-02 07:39 | PM.GSPN ---
Subjective Subjective Date Seen: 01/02/25 Interval history: Patient is very ornery this morning. His NG tube came out yesterday, it sounds like it fell out from the bedside. Since being removed he denies any nausea or vomiting. His abdominal pain is improving and he feels less bloated. He still complains of pain in the middle and on the right side. He walked once this morning and has plans to walk 5 times throughout the day. He is urinating without difficulty. He pulled his telemetry of last night. His PICC line remains in place and he continues get TPN and antibiotics. He says that he has had a little bit of diarrhea in his chair and on his pad. He points to a very small nick of fluid. Denies passing gas. He is feeling hungry. Exam Narrative: Exam Narrative: Abdomen: Distended, soft, some tenderness to palpation right upper quadrant. No guarding. Exam improved compared to yesterday. Midline incision with dennis in place, no concern for infection, some serous drainage on the inferior aspect. Const: Vital Signs, click to edit/add: Vital Signs - 24 hr 01/01/25 08:21 01/01/25 11:59 01/01/25 15:00 Temperature 97.5 F L Pulse Rate 101 H Pulse Rate [Pulse Oximeter] 81 Respiratory Rate 18 Blood Pressure [Le ft Arm] Blood Pressure [Ri ght Arm] 142/95 H Pulse Oximetry 94 Oxygen Delivery Me thod Room Air Room Air 01/01/25 16:03 01/01/25 17:00 01/01/25 19:00 Temperature 97.8 F 98.5 F Pulse Rate Pulse Rate [Pulse Oximeter] 101 H 101 H 88 Respiratory Rate 18 18 18 Blood Pressure [Le ft Arm] Blood Pressure [Ri ght Arm] 146/87 H 141/94 H Pulse Oximetry 97 94 Oxygen Delivery [place] thod Room Air Room Air 01/01/25 23:00 01/01/25 23:00 01/01/25 23:00 Temperature 98.6 F Pulse Rate Pulse Rate [Pulse Oximeter] 83 83 Respiratory Rate 18 18 18 Blood Pressure [Le ft Arm] 134/84 Blood Pressure [Ri ght Arm] Pulse Oximetry 93 93 Oxygen Delivery [place] thod Room Air Room Air 01/01/25 23:00 01/02/25 03:00 Temperature 97.5 F L Pulse Rate 82 Pulse Rate [Pulse Oximeter] 77 Respiratory Rate 18 Blood Pressure [Le ft Arm] 144/88 H Blood Pressure [Ri ght Arm] Pulse Oximetry 93 Oxygen Delivery Me thod Room Air Labs/Imaging Labs Labs: Leukocytosis (17--13--15), CRP down trending (36--36--29) Imaging Imaging: No new imaging Progress Note:A&P Assessment and plan (1) Small bowel obstruction: Status: Acute Assessment and Plan: Patient is postop day 4 exploratory laparotomy, extensive lysis of adhesions and ileocecectomy for small-bowel obstruction. NG tube now out, no need to replace this morning. Okay for sips and ice chips. Will wait for patient to start passing gas before starting clear liquids. Recommend he continue with TPN at this time. -sips and ice chips. Please notify when patient begins to pass gas or stool. -TPN -IV and p.o. pain meds as needed -continue IV Zosyn -encourage ambulation -SCDs, Lovenox for DVT prophylaxis
[2025-01-02] MEDS: PANTOPRAZOLE SODIUM 40 MG INJ IVP (08:42)
--- NOTE | 2025-01-02 09:53 | NUTR.NU ---
RDN with nutrition follow-up for TPN tolerance. Patient is postop day 4 s/p lysis of adhesions and ileocecectomy. Potassium WNL today at 3.6, Glucose WNL at 113, Calcium low at 8.2, Phosphorus WNL at 2.8, and Magnesium WNL at 2.0. Pharmacy to assess and replace electrolytes as needed and appropriate. Current weight 229lbs, height 5ft 9in, and BMI 33.8 kg/m2. Weight on 01/01/25 213lbs. RDN questions accuracy of weight due to bed scale vs. standing scale. RDN notified pharmacy, RN, and MD regarding weight increase. RDN will continue to follow weight trends and fluid status during hospitalization. Patient currently receiving TPN (20% dextrose, 5% amino acids) at 30mls/hr x 24 hours and will advance by 10mls/hr for the next 24 hours at 1400 today. Monitor for further advancement. RDN will re-assess TPN tomorrow morning. Ultimately goal rate of 80 mls/hr with 250 mls 20% lipid emulsion 3x/week. At goal rate this provides 1904 kcals, 96 grams protein, and 1920 mls fluid. NG tube removed yesterday. Patient reports no nausea or vomiting, but does note some diarrhea. Patient reports abdominal pain is improving and feels less bloated. RDN will continue to monitor for tolerance, labs, weight, refeeding syndrome, and follow-up as needed.
--- NOTE | 2025-01-02 11:59 | P.IMPN_ITS ---
Assessment and Plan Assessment and plan (1) Small bowel obstruction: Problem comment: - S/p lysis of adhesions, ileocecectomy on 12/29/2024 - NG tube placed 12/26, NPO - general surgery following -12/27: NG tube to low intermittent suction, advance based off of abdominal x- ray. nursing to flush once per shift -Gastrografin study performed yesterday 12/27/2024 -12/28: -Abdominal x-ray today showed Similar dilation bowel loops with contrast remaining in the small bowel loops. -on IV fluids for maintenance + Zosyn IV. -12/29: NG tube in place to low intermittent suction. on IV fluids for maintenance 12/30: S/p lysis of adhesions, ileocecectomy on 12/29/2024 . On Zosyn. -Monitor UO and monitor for third spacing. Careful fluid management. -encourage incentive spirometry -12/31: Urine output stable, Dr Smyth asked for his foleys cath to be taken out. -ordered PICC line placement and a nutrition consult to start TPN. -01/01: PICC line was inserted yesterday patient is tolerating TPN. Low phosphorous, will replace and monitor. Stable urine output. Continue IV antibiotics. -01/02: On TPN + IV Abx. NG tube out overnight. Okay for sips and ice chips. Sx will wait for patient to start passing gas before starting clear liquids. Status: Acute (2) CATRACHITA (acute kidney injury): Problem comment: -Cr 0.3 increase over 24 hrs. UOP stable ~ 0.4 cc/kg/hr -strict I&Os, I talked to the nurses and they will make sure he knows about it. -01/01: CATRACHITA is resolving, his serum creatinine is back to 1. -01/02: Urine output improved Status: Resolved (3) Hypophosphatemia: Problem comment: Lower lip below phosphorus at 2.2 Will replace and monitor. 01/02: Resolved after replacement Status: Resolved (4) Hypokalemia: Problem comment: - hypokalemia, K+ 2.7, IV K+ replacement ordered (4 bags). - Ordered add on lab for magnesium, please check the result and replace if necessary. - 4 pm Follow/up K+ lab after replacement, If potassium is still low please order more IV potassium this p.m. - 12/28: improving, K 3.3, will give 3 more bags of potassium chloride IV. (got 2 potassium packs overnight). - Resolved, potassium within normal. Status: Resolved (5) Diet-controlled diabetes mellitus: Problem comment: - last A1C 7.1, previously on metformin but self discontinued this - Restart accuchecks and SSI. I restarted D5NS + 20mEq KCl. Status: Acute (6) Hyperlipidemia: Problem comment: - previously on statin, has stopped this Status: Acute Total Time Spent Total Time Spent: Today I spent 50 minutes seeing the patient, reviewing Expanse and EPIC notes/diagnostics, discussing the care plan with our care time that includes social work, PT/OT, pharmacy, RT, nursing home and documenting my impressions and plan in the medical record. Subjective Date Seen: 01/02/25 Interval history: Patient was seen and examined at bedside today. Patient said that he feels better today. NG tube was out yesterday. He did not pass gas yet. On TPN, Dr. Smyth was okay with ice chips for now. Urine output improved. Exam Narrative: Exam Narrative: GENERAL: No acute distress. HEAD AND NECK: Atraumatic, normocephalic CARDIOVASCULAR: RRR. Normal S1, S2. No murmurs. RESPIRATORY: Clear to auscultation B/L. Good air entry B/L. No wheezes or rhonchi. GASTROINTESTINAL: Soft. mildly tender to palpation in the middle and on the right side. Clean midline dressing. NEUROLOGY: Alert, awake, oriented X 3. Normal speech. Const: Vital Signs, click to edit/add: Vital Signs - 24 hr 01/01/25 15:00 01/01/25 16:03 01/01/25 17:00 Temperature 97.8 F Pulse Rate Pulse Rate [Pulse Oximeter] 101 H 101 H Respiratory Rate 18 18 Blood Pressure [Le ft Arm] Blood Pressure [Ri ght Arm] 146/87 H Pulse Oximetry 97 Oxygen Delivery Me thod Room Air Room Air Fraction of Inspir ed Oxygen 01/01/25 19:00 01/01/25 23:00 01/01/25 23:00 Temperature 98.5 F Pulse Rate Pulse Rate [Pulse Oximeter] 88 83 Respiratory Rate 18 18 18 Blood Pressure [Le ft Arm] Blood Pressure [Ri ght Arm] 141/94 H Pulse Oximetry 94 93 Oxygen Delivery Me thod Room Air Room Air Fraction of Inspir ed Oxygen 01/01/25 23:00 01/01/25 23:00 01/02/25 03:00 Temperature 98.6 F 97.5 F L Pulse Rate 82 Pulse Rate [Pulse Oximeter] 83 77 Respiratory Rate 18 18 Blood Pressure [Le ft Arm] 134/84 144/88 H Blood Pressure [Ri ght Arm] Pulse Oximetry 93 93 Oxygen Delivery Me thod Room Air Room Air Fraction of Inspir ed Oxygen 01/02/25 07:30 01/02/25 07:30 01/02/25 07:30 Temperature 97.6 F Pulse Rate Pulse Rate [Pulse Oximeter] 81 81 Respiratory Rate 18 18 18 Blood Pressure [Le ft Arm] Blood Pressure [Ri ght Arm] 144/81 H Pulse Oximetry 92 92 Oxygen Delivery Me thod Room Air Room Air Fraction of Inspir ed Oxygen 01/02/25 11:44 Temperature 97.2 F L Pulse Rate Pulse Rate [Pulse Oximeter] 71 Respiratory Rate 18 Blood Pressure [Le ft Arm] Blood Pressure [Ri ght Arm] 144/86 H Pulse Oximetry 92 Oxygen Delivery Me thod Room Air Fraction of Inspir ed Oxygen 10 Labs Labs: Laboratory Results - last 24 hr 01/02/25 05:58 WBC 15.20 H RBC 4.09 L Hgb 11.4 L Hct 35.0 L MCV 86 MCH 28 MCHC 33 RDW Coeff of Amy 16.9 H Plt Count 178 Neut % (Auto) 89.3 H Lymph % (Auto) 6.5 L [place] % (Auto) 3.9 Eos % (Auto) 0.1 Baso % (Auto) 0.0 Neut # (Auto) 13.60 H Lymph # (Auto) 1.00 [place] # (Auto) 0.60 Eos # (Auto) 0.00 Baso # (Auto) 0.00 Abs Immat Gran (auto) 0.00 Imm/Tot Granulo (auto) 0.2 Sodium 143 Potassium 3.6 Chloride 115 H Carbon Dioxide 26 Anion Gap 2 L BUN 21 Creatinine 0.9 Estimated Creat Clear 73.65 Estimated GFR 95 Glucose 113 Calcium 8.2 L Phosphorus 2.8 Magnesium 2.0 C-Reactive Protein 29.6 H
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
[2025-01-02] MEDS: FAT EMULSIONS 20 % 250 ML/250 ML BAG 14 ML IV (18:26)
[2025-01-02] MEDS: AA 5 %/CALCIUM/LYTES/DEXT 20 % 2,000 ML 40 ML IV (18:27)
--- NOTE | 2025-01-02 18:51 | PC.NURSE ---
end of shift. RN and MD went in to see pt this am. we had a talk about the day and how things where planned. pt did not have any behaviors. he seems to have a better day. he is currently singing. picc is patent. dressing change was done. TPN. Lipids and fluids are running. she is up ab mina in the sanchez with IV pole. abd pain is 6-9/ he is getting pain meds with walking. he can have sips of water and ice clips limited BS are absent to hypo. encouraged walking. pt has only walked 4 times so far. walking was encouraged. teds on and off. IS to [phone]. no gas so far. he has not been up to chair, chair was encouraged. he likes staff to wear gloves and keep the door closed. dressing was changed this am and is C/D/I/ he has a abd incision.
[2025-01-02] MEDS: ENOXAPARIN 40 MG/0.4 ML INJ SUBCUT (21:16)
[2025-01-02] MEDS: LACTATED RINGERS 1000 ML 1,000 ML 90 ML IV (22:46)
[2025-01-03] VITALS (8 sets, daily range): BP systolic 123–143; BP diastolic 79–90; PULSE 58–66; RESP 14–18; TEMP 36.4–36.8; O2SAT 92–97
[2025-01-03] MEDS: PIPERACILLIN/TAZOBACTAM 3.375 GM in 0.9 % SODIUM CHLORIDE Mini-bag 100 ML IVPB ×4 (01:17→18:33)
[2025-01-03] MEDS: INSULIN ASPART 100 UNIT/ML SUBCUT ×2 (06:28→17:35)
[2025-01-03 06:52] LABS: Hematocrit 32.5 % (37.0-53.0); Hemoglobin* 10.6 gm/dL (13.5-17.5); Immature Granulocytes Pct Auto 0.6 %; Mean Corpuscular HGB Conc 33 gm/dL (32-36); Mean Corpuscular Hemoglobin 28 pg (26-34); Mean Corpuscular Volume 86 fL (80-100); RDW Coefficient of Variation % 17.0 % (11.5-15.5); Red Blood Count 3.79 m/uL (4.30-5.90); White Blood Count* 12.08 K/uL (4.50-11.00)
[2025-01-03 06:54] LABS: Immature Granulocytes Abs Auto 0.10 K/uL (0.00-0.30); Lymphocytes Absolute Auto 1.00 K/uL (0.90-2.90); Slide Review Reflex No
--- NOTE | 2025-01-03 07:07 | PC.NURSE ---
End of shift: Pt pleasant, alert and oriented. VSS. Pain rated 7/10, prn dilaudid given, pt stated improvement. Midline incision dressing saturated twice throughout shift with serosanguineous drainage. Dressing changed with ABD pad and tape. Pt stated flatus. Bowel sounds hypoactive. Pt up independently and walking the halls. Ice pack to op site throughout shift. Pt in bed, appears to be resting, call light within reach.?
[2025-01-03 07:08] LABS: Albumin* 2.1 g/dL (3.3-5.0); Chloride* 110 mmol/L (96-114); Sodium* 138 mmol/L (135-149)
[2025-01-03 07:09] LABS: Potassium* 3.3 mmol/L (3.6-5.1)
[2025-01-03 07:11] LABS: Alanine Aminotransferase* 13 U/L (4-50); Alkaline Phosphatase* 85 U/L (40-150); Anion Gap -1 mEq/L (7-15); Aspartate Amino Transferase* 16 U/L (12-35); Bilirubin Total* 0.7 mg/dL (0.1-1.5); Blood Urea Nitrogen* 16 mg/dL (7-30); Calcium* 7.8 mg/dL (8.4-10.6); Carbon Dioxide* 29 mmol/L (20-32); Creatinine* 0.8 mg/dL (0.5-1.5); Est. Creatinine Clearance* 73.65; Estimated Glomerular Filt Rate 98 ml/min; Glucose* 146 mg/dL (60-115); Total Protein* 4.9 g/dL (6.0-8.3)
--- NOTE | 2025-01-03 08:53 | PM.GSPN ---
Subjective Subjective Date Seen: 01/03/25 Interval history: Patient is in better spirits this morning. He feels like he is improving. He started to pass gas last night. No fevers. Was able to rest overnight. He continues to have some drainage from the inferior aspect of his incision. Pain continues on the right side, but this is also slowly improving. He is feeling hungry this morning. Exam Narrative: Exam Narrative: General: Alert and oriented, no acute distress Abdomen: Obese abdomen, soft, tender to palpation on the right side with some guarding, no rebound. Midline incision with Steri-Strips in place. Small amount of serous drainage noted on the dressings and the inferior aspect of the incision. Const: Vital Signs, click to edit/add: Vital Signs - 24 hr 01/02/25 11:44 01/02/25 16:07 01/02/25 16:07 Temperature 97.2 F L Pulse Rate [Pulse Oximeter] 71 71 Respiratory Rate 18 18 18 Blood Pressure [Ri ght Arm] 144/86 H Pulse Oximetry 92 92 Oxygen Delivery Me thod Room Air Room Air Oxygen Flow Rate 2 Fraction of Inspir ed Oxygen 10 10 01/02/25 16:07 01/02/25 20:07 01/02/25 22:59 Temperature 97.3 F L 98.3 F 97.7 F Pulse Rate [Pulse Oximeter] 71 77 66 Respiratory Rate 18 16 14 Blood Pressure [Ri ght Arm] 134/73 113/75 126/74 Pulse Oximetry 94 93 90 Oxygen Delivery Me thod Room Air Room Air Room Air Oxygen Flow Rate Fraction of Inspir ed Oxygen 01/02/25 23:00 01/02/25 23:00 01/03/25 03:30 Temperature 97.6 F Pulse Rate [Pulse Oximeter] 66 65 Respiratory Rate 14 18 Blood Pressure [Ri ght Arm] 123/79 Pulse Oximetry 90 94 Oxygen Delivery Me thod Room Air Room Air Oxygen Flow Rate Fraction of Inspir ed Oxygen 01/03/25 07:56 01/03/25 07:56 01/03/25 07:57 Temperature 97.8 F Pulse Rate [Pulse Oximeter] 61 61 Respiratory Rate 18 18 18 Blood Pressure [Ri ght Arm] 132/79 Pulse Oximetry 92 94 Oxygen Delivery Me thod Room Air Room Air Oxygen Flow Rate Fraction of Inspir ed Oxygen Labs/Imaging Labs Labs: Leukocytosis (12), CRP trending down at 18 this morning. Low potassium of 3.3. Imaging Imaging: No new imaging Progress Note:A&P Assessment and plan (1) Small bowel obstruction: Status: Acute Assessment and Plan: Patient is postop day 5 exploratory laparotomy, extensive lysis of adhesions and ileocecectomy for small-bowel obstruction. Patient has reported passing gas. Okay to start a clear liquid diet. -clear liquids -TPN going this morning, recommend titrating off -IV and p.o. pain meds as needed. Please encourage oral medications -continue IV Zosyn, recommend he continue a course of antibiotics to complete 7 days. Will continue IV while inpatient. -encourage ambulation -SCDs, Lovenox for DVT prophylaxis
[2025-01-03] MEDS: PANTOPRAZOLE SODIUM 40 MG INJ IVP (09:02)
[2025-01-03] MEDS: POTASSIUM CHLORIDE 10 MEQ/100 ML PIGGYBACK 100 MEQ IVPB ×4 (09:23→13:34)
[2025-01-03] MEDS: HYDROCODONE-ACETAMIN 5-325 MG 1 TAB PO ×3 (10:33→20:57)
--- NOTE | 2025-01-03 13:55 | PM.EN ---
Chart Event Note Chart Event Note: Spoke with the patient about his pathology results. 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 Patient does have a history of perforated appendicitis x2, both managed non op with drain placement. The appendix was not identified and presumed obliterated. Evidence of invasion through muscular wall to involved periappendiceal adipose. The retroperitoneal margin is positive with presence of cauterization. 04/15 lymph nodes positive for metastatic disease with multiple soft tissue tumor deposits identified. Will place a referral for Oncology as an outpatient. Will also refer patient to surgical Oncology at the [facility]. No change in patient's current treatment plan. He did pass gas and have a small amount of diarrhea today. Is tolerating liquids without difficulty.
--- NOTE | 2025-01-03 14:19 | P.IMPN_ITS ---
Assessment and Plan Assessment and plan (1) Small bowel obstruction: Problem comment: - S/p lysis of adhesions, ileocecectomy on 12/29/2024 - NG tube placed 12/26, NPO - general surgery following -12/27: NG tube to low intermittent suction, advance based off of abdominal x- ray. nursing to flush once per shift -Gastrografin study performed yesterday 12/27/2024 -12/28: -Abdominal x-ray today showed Similar dilation bowel loops with contrast remaining in the small bowel loops. -on IV fluids for maintenance + Zosyn IV. -12/29: NG tube in place to low intermittent suction. on IV fluids for maintenance 12/30: S/p lysis of adhesions, ileocecectomy on 12/29/2024 . On Zosyn. -Monitor UO and monitor for third spacing. Careful fluid management. -encourage incentive spirometry -12/31: Urine output stable, Dr Smyth asked for his foleys cath to be taken out. -ordered PICC line placement and a nutrition consult to start TPN. -01/01: PICC line was inserted yesterday patient is tolerating TPN. Low phosphorous, will replace and monitor. Stable urine output. Continue IV antibiotics. -01/02: On TPN + IV Abx. NG tube out overnight. Okay for sips and ice chips. Sx will wait for patient to start passing gas before starting clear liquids. -01/03: Passing gas, clear liquids for now and start titrating TPN off Status: Acute (2) CATRACHITA (acute kidney injury): Problem comment: -Cr 0.3 increase over 24 hrs. UOP stable ~ 0.4 cc/kg/hr -strict I&Os, I talked to the nurses and they will make sure he knows about it. -01/01: CATRACHITA is resolving, his serum creatinine is back to 1. -01/02: Urine output improved Status: Resolved (3) Hypophosphatemia: Problem comment: Lower lip below phosphorus at 2.2 Will replace and monitor. 01/02: Resolved after replacement Status: Resolved (4) Hypokalemia: Problem comment: - hypokalemia, K+ 2.7, IV K+ replacement ordered (4 bags). - Ordered add on lab for magnesium, please check the result and replace if necessary. - 4 pm Follow/up K+ lab after replacement, If potassium is still low please order more IV potassium this p.m. - 12/28: improving, K 3.3, will give 3 more bags of potassium chloride IV. (got 2 potassium packs overnight). - Resolved, potassium within normal. Status: Resolved (5) Diet-controlled diabetes mellitus: Problem comment: - last A1C 7.1, previously on metformin but self discontinued this - Restart accuchecks and SSI. I restarted D5NS + 20mEq KCl. Status: Acute (6) Hyperlipidemia: Problem comment: - previously on statin, has stopped this Status: Acute Total Time Spent Total Time Spent: Today I spent 50 minutes seeing the patient, reviewing Expanse and EPIC notes/diagnostics, discussing the care plan with our care time that includes social work, PT/OT, pharmacy, RT, detention and documenting my impressions and plan in the medical record. Subjective Date Seen: 01/03/25 Interval history: No overnight events. Patient feels better today. Patient states that he is passing gas now. Surgeon started him on clear liquids and will need to titrate TPN off. Urine output improved. Exam Narrative: Exam Narrative: Physical exam GENERAL: Comfortable, no acute distress. HEAD AND NECK: Atraumatic, normocephalic CARDIOVASCULAR: RRR. Normal S1, S2. RESPIRATORY: Clear to auscultation B/L. Good air entry B/L. GASTROINTESTINAL: some serous drainage on the midline dressing. NEUROLOGY: Alert, awake, oriented X 3. Normal speech. Const: Vital Signs, click to edit/add: Vital Signs - 24 hr 01/02/25 16:07 01/02/25 16:07 01/02/25 16:07 Temperature 97.3 F L Pulse Rate [Pulse Oximeter] 71 71 Respiratory Rate 18 18 18 Blood Pressure [Ri ght Arm] 134/73 Pulse Oximetry 92 94 Oxygen Delivery Me thod Room Air Room Air Oxygen Flow Rate 2 Fraction of Inspir ed Oxygen 10 01/02/25 20:07 01/02/25 22:59 01/02/25 23:00 Temperature 98.3 F 97.7 F Pulse Rate [Pulse Oximeter] 77 66 Respiratory Rate 16 14 Blood Pressure [Ri ght Arm] 113/75 126/74 Pulse Oximetry 93 90 90 Oxygen Delivery Me thod Room Air Room Air Room Air Oxygen Flow Rate Fraction of Inspir ed Oxygen 01/02/25 23:00 01/03/25 03:30 01/03/25 07:56 Temperature 97.6 F Pulse Rate [Pulse Oximeter] 66 65 Respiratory Rate 14 18 18 Blood Pressure [Ri ght Arm] 123/79 Pulse Oximetry 94 92 Oxygen Delivery Me thod Room Air Room Air Oxygen Flow Rate Fraction of Inspir ed Oxygen 01/03/25 07:56 01/03/25 07:57 01/03/25 11:45 Temperature 97.8 F 97.8 F Pulse Rate [Pulse Oximeter] 61 61 63 Respiratory Rate 18 18 18 Blood Pressure [Ri ght Arm] 132/79 143/80 H Pulse Oximetry 94 96 Oxygen Delivery Me thod Room Air Room Air Oxygen Flow Rate Fraction of Inspir ed Oxygen Labs Labs: Laboratory Results - last 24 hr 01/03/25 06:30 WBC 12.08 H RBC 3.79 L Hgb 10.6 L Hct 32.5 L MCV 86 MCH 28 MCHC 33 RDW Coeff of Amy 17.0 H Plt Count 157 Neut % (Auto) 84.6 H Lymph % (Auto) 7.9 L [place] % (Auto) 5.8 Eos % (Auto) 1.0 Baso % (Auto) 0.1 Neut # (Auto) 10.20 H Lymph # (Auto) 1.00 [place] # (Auto) 0.70 Eos # (Auto) 0.10 Baso # (Auto) 0.00 Abs Immat Gran (auto) 0.10 Imm/Tot Granulo (auto) 0.6 Sodium 138 Potassium 3.3 L Chloride 110 Carbon Dioxide 29 Anion Gap -1 L BUN 16 Creatinine 0.8 Estimated Creat Clear 73.65 Estimated GFR 98 Glucose 146 H Calcium 7.8 L Phosphorus 2.9 Magnesium 2.0 Total Bilirubin 0.7 AST 16 ALT 13 Alkaline Phosphatase 85 C-Reactive Protein 18.5 H Total Protein 4.9 L Albumin 2.1 L
--- NOTE | 2025-01-03 15:36 | PC.NURSE ---
end of shift. pt was pleasant today. we start to take po pain meds and he was started on a clear liquid diet. pt did not have any behaviors. he had a good day bebo butler updated him on his test result. she explained to him that he had cancer. he was sad after that but his behaviors where good. picc is patent he had a shower and picc line dressing did get wet and was changed it was covered with plastic and tape, TPN. Lipids and fluids are running. he started to have losses bms and he had 2-3 showers. he was very incontinent of BM. brief was on. abd pain is 6-9. he is getting po pain meds. he is drinking with no nausea or increase in abd pain. BS are hypo. and he is passing gas. encouraged walking. 6-8 times. pt has only walked 4 times so far. walking was encouraged. teds on and off. IS to [id number]. he has not been up to chair, chair was encouraged. he likes staff to wear gloves and keep the door closed. dressing was C/D/I it was also changed after showers. he has a abd incision.
--- NOTE | 2025-01-03 15:48 | PC.SOCIAL ---
Discharge planning: Attempted to meet with the pt today x2. He was either with one of the doctors or sleeping. farmworker livestock's co-worker did complete an initial assessment with him yesterday. farmworker livestock will attempt to meet with the pt again tomorrow. Social work to follow-up as needed.
[2025-01-03] MEDS: LACTATED RINGERS 1000 ML 1,000 ML 75 ML IV (16:27)
--- NOTE | 2025-01-03 18:43 | PC.NURSE ---
Pt is doing well. VSS. Pain is mildly controlled with PRN pain medication and warm blankets. Pt is having large liquid stools. Pt showered on shift. Abdominal dressing was changed, there was a small amount of serosanguineous drainage. PICC line dressing was changed at approximately 1630. Pt is able to get out of bed with minimal assist and ambulate independently. Pt is tolerating clear liquid diet. He is resting well at this time.
[2025-01-03] MEDS: ENOXAPARIN 40 MG/0.4 ML INJ SUBCUT (20:57)
[2025-01-04] VITALS (7 sets, daily range): BP systolic 121–147; BP diastolic 73–92; PULSE 58–90; RESP 16–20; TEMP 36.6–37; O2SAT 92–96; BMI 34.2
[2025-01-04] MEDS: PIPERACILLIN/TAZOBACTAM 3.375 GM in 0.9 % SODIUM CHLORIDE Mini-bag 100 ML IVPB ×4 (01:56→18:42)
[2025-01-04 05:56] LABS: Hematocrit 31.0 % (37.0-53.0); Hemoglobin* 10.1 gm/dL (13.5-17.5); Mean Corpuscular HGB Conc 33 gm/dL (32-36); Mean Corpuscular Hemoglobin 28 pg (26-34); Mean Corpuscular Volume 85 fL (80-100); Red Blood Count 3.63 m/uL (4.30-5.90); White Blood Count* 10.82 K/uL (4.50-11.00)
[2025-01-04 06:17] LABS: Slide Review Reflex No
--- NOTE | 2025-01-04 06:29 | PC.NURSE ---
End of shift: Pt pleasant, alert and oriented. VSS. Pain rated 7/10, prn [place] given, pt stated improvement. Midline incision dressing saturated twice throughout shift with serosanguinous drainage. Dressing changed with ABD pad and tape. Pt stated flatus, 1 small bm. Pt had BM on self then got into shower without allowing staff to cover dressings. Picc dressing changed. Bowel sounds active. Pt up independently and walking the halls. Ice pack to op site throughout shift. Pt in bed, appears to be resting, call light within reach.?
[2025-01-04 06:39] LABS: Chloride* 105 mmol/L (96-114); Potassium* 3.3 mmol/L (3.6-5.1); Sodium* 136 mmol/L (135-149)
[2025-01-04 06:42] LABS: Anion Gap 2 mEq/L (7-15); Blood Urea Nitrogen* 12 mg/dL (7-30); Calcium* 7.8 mg/dL (8.4-10.6); Carbon Dioxide* 29 mmol/L (20-32); Creatinine* 0.7 mg/dL (0.5-1.5); Est. Creatinine Clearance* 73.65; Estimated Glomerular Filt Rate 102 ml/min; Glucose* 94 mg/dL (60-115)
[2025-01-04] MEDS: HYDROCODONE-ACETAMIN 5-325 MG 1 TAB PO ×3 (06:58→22:22)
[2025-01-04] MEDS: POTASSIUM CHLORIDE 10 MEQ/100 ML PIGGYBACK 100 MEQ IVPB ×4 (08:51→11:47)
[2025-01-04] MEDS: PANTOPRAZOLE SODIUM 40 MG INJ IVP (08:51)
[2025-01-04] MEDS: LACTATED RINGERS 1000 ML 1,000 ML 75 ML IV (09:36)
--- NOTE | 2025-01-04 10:34 | PM.GSPN ---
Subjective Subjective Date Seen: 01/04/25 Interval history: Rodo is doing well today. He has had several bowel movements. He is tolerating clear liquids without any difficulty. Continues to have drainage from the mid aspect of his incision. Feels his pain is controlled. Exam Narrative: Exam Narrative: General: Alert, no acute distress Respiratory: Breathing is nonlabored. Patient is singing in his room without any difficulty. CV: Regular rate Abdomen: Protuberant. Soft, incision without erythema though there is some murky drainage noted on the dressing. This is scant. Appears to be coming about the umbilicus region. Const: Vital Signs, click to edit/add: Vital Signs - 24 hr 01/03/25 11:45 01/03/25 15:00 01/03/25 15:00 Temperature 97.8 F Pulse Rate [Pulse Oximeter] 63 62 Respiratory Rate 18 18 18 Blood Pressure [Ri ght Arm] 143/80 H Pulse Oximetry 96 97 Oxygen Delivery Me thod Room Air Room Air Oxygen Flow Rate 2 Fraction of Inspir ed Oxygen 10 01/03/25 15:49 01/03/25 19:45 01/03/25 23:00 Temperature 98.2 F 98.3 F Pulse Rate [Pulse Oximeter] 62 58 L 66 Respiratory Rate 18 14 18 Blood Pressure [Ri ght Arm] 142/88 H 141/90 H Pulse Oximetry 97 92 Oxygen Delivery Me thod Room Air Room Air Oxygen Flow Rate Fraction of Inspir ed Oxygen 01/03/25 23:00 01/04/25 00:25 01/04/25 03:20 Temperature 98.0 F 97.8 F Pulse Rate [Pulse Oximeter] 66 58 L Respiratory Rate 18 16 Blood Pressure [Ri ght Arm] 126/76 121/73 Pulse Oximetry 94 94 92 Oxygen Delivery Me thod Room Air Room Air Room Air Oxygen Flow Rate Fraction of Inspir ed Oxygen 01/04/25 07:00 Temperature 98.4 F Pulse Rate [Pulse Oximeter] 84 Respiratory Rate 18 Blood Pressure [Ri ght Arm] 125/92 H Pulse Oximetry 93 Oxygen Delivery Me thod Room Air Oxygen Flow Rate Fraction of Inspir ed Oxygen Labs/Imaging Labs Labs: White blood cell count is normal today at 10.8 Hemoglobin stable at 10.1 Potassium 3.3 Progress Note:A&P Assessment and plan (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 Pathology shows signet ring carcinoma -he does have return of bowel function. Will advance his diet to soft. -continue Lovenox for DVT prophylaxis -will DC IV medications other than Zosyn. -Zosyn to complete tomorrow. -drainage noted from incision. Currently no surrounding cellulitis. If there is cellulitis noted then we will plan to open the incision slightly. Otherwise this likely represents seroma or fluid from fat necrosis. -encourage IS and ambulation. -potassium replaced this morning -anticipate discharge in the next 1-2 days
--- NOTE | 2025-01-04 12:10 | P.IMPN_ITS ---
Assessment and Plan Assessment and plan (1) Small bowel obstruction: Problem comment: - S/p lysis of adhesions, ileocecectomy on 12/29/2024 - NG tube placed 12/26, NPO - general surgery following -12/27: NG tube to low intermittent suction, advance based off of abdominal x- ray. nursing to flush once per shift -Gastrografin study performed yesterday 12/27/2024 -12/28: -Abdominal x-ray today showed Similar dilation bowel loops with contrast remaining in the small bowel loops. -on IV fluids for maintenance + Zosyn IV. -12/29: NG tube in place to low intermittent suction. on IV fluids for maintenance 12/30: S/p lysis of adhesions, ileocecectomy on 12/29/2024 . On Zosyn. -Monitor UO and monitor for third spacing. Careful fluid management. -encourage incentive spirometry -12/31: Urine output stable, Dr Smyth asked for his foleys cath to be taken out. -ordered PICC line placement and a nutrition consult to start TPN. -01/01: PICC line was inserted yesterday patient is tolerating TPN. Low phosphorous, will replace and monitor. Stable urine output. Continue IV antibiotics. -01/02: On TPN + IV Abx. NG tube out overnight. Okay for sips and ice chips. Sx will wait for patient to start passing gas before starting clear liquids. -01/03: Passing gas, clear liquids for now and start titrating TPN off -01/04: Switch IV meds to oral. Will start soft diet. -Per Sx, drainage noted from incision. Currently no surrounding cellulitis. If there is cellulitis noted then we will plan to open the incision slightly. Otherwise this likely represents seroma or fluid from fat necrosis. -Zosyn to be stopped tomorrow January 05. Status: Acute (2) CATRACHITA (acute kidney injury): Problem comment: -Cr 0.3 increase over 24 hrs. UOP stable ~ 0.4 cc/kg/hr -strict I&Os, I talked to the nurses and they will make sure he knows about it. -01/01: CATRACHITA is resolving, his serum creatinine is back to 1. -01/02: Urine output improved -01/04 GFR > 100. Cr 0.7 Status: Resolved (3) Hypophosphatemia: Problem comment: Lower lip below phosphorus at 2.2 Will replace and monitor. 01/02: Resolved after replacement Status: Resolved (4) Hypokalemia: Problem comment: - hypokalemia, K+ 2.7, IV K+ replacement ordered (4 bags). - Ordered add on lab for magnesium, please check the result and replace if necessary. - 4 pm Follow/up K+ lab after replacement, If potassium is still low please order more IV potassium this p.m. - 12/28: improving, K 3.3, will give 3 more bags of potassium chloride IV. (got 2 potassium packs overnight). - Resolved, potassium within normal. Status: Resolved (5) Diet-controlled diabetes mellitus: Problem comment: - last A1C 7.1, previously on metformin but self discontinued this - Restart accuchecks and SSI. I restarted D5NS + 20mEq KCl. Status: Acute (6) Hyperlipidemia: Problem comment: - previously on statin, has stopped this Status: Acute Total Time Spent Total Time Spent: Today I spent 50 minutes seeing the patient, reviewing [facility] and [facility] notes/diagnostics, discussing the care plan with our care time that includes social work, PT/OT, pharmacy, RT, senior living and documenting my impressions and plan in the medical record. Subjective Date Seen: 01/04/25 Interval history: No overnight events. Patient seen and examined at bedside today. His pain is controlled. He had multiple bowel movements that are formed stool per the patient. He denies black stools or blood in the stool. Currently he is tolerating clear liquids and the surgeon states that his diet can be advanced to soft diet. Exam Narrative: Exam Narrative: GENERAL: Comfortable, no acute distress. HEAD AND NECK: Atraumatic, normocephalic CARDIOVASCULAR: RRR. Normal S1, S2. RESPIRATORY: Clear to auscultation B/L. Good air entry B/L. GASTROINTESTINAL: some serous drainage on the midline dressing. NEUROLOGY: Alert, awake, oriented X 3. Normal speech. Const: Vital Signs, click to edit/add: Vital Signs - 24 hr 01/03/25 15:00 01/03/25 15:00 01/03/25 15:49 Temperature 98.2 F Pulse Rate [Pulse Oximeter] 62 62 Respiratory Rate 18 18 18 Blood Pressure [Ri ght Arm] 142/88 H Pulse Oximetry 97 97 Oxygen Delivery Me thod Room Air Room Air Oxygen Flow Rate 2 Fraction of Inspir ed Oxygen 10 01/03/25 19:45 01/03/25 23:00 01/03/25 23:00 Temperature 98.3 F Pulse Rate [Pulse Oximeter] 58 L 66 Respiratory Rate 14 18 Blood Pressure [Ri ght Arm] 141/90 H Pulse Oximetry 92 94 Oxygen Delivery Me thod Room Air Room Air Oxygen Flow Rate Fraction of Inspir ed Oxygen 01/04/25 00:25 01/04/25 03:20 01/04/25 07:00 Temperature 98.0 F 97.8 F 98.4 F Pulse Rate [Pulse Oximeter] 66 58 L 84 Respiratory Rate 18 16 18 Blood Pressure [Ri ght Arm] 126/76 121/73 125/92 H Pulse Oximetry 94 92 93 Oxygen Delivery Me thod Room Air Room Air Room Air Oxygen Flow Rate Fraction of Inspir ed Oxygen 01/04/25 07:00 01/04/25 10:51 Temperature 98 F Pulse Rate [Pulse Oximeter] 63 Respiratory Rate 20 20 Blood Pressure [Ri ght Arm] 147/92 H Pulse Oximetry 96 96 Oxygen Delivery Me thod Room Air Room Air Oxygen Flow Rate Fraction of Inspir ed Oxygen Labs Labs: Laboratory Results - last 24 hr 01/04/25 05:45 WBC 10.82 RBC 3.63 L Hgb 10.1 L Hct 31.0 L MCV 85 MCH 28 MCHC 33 Plt Count 151 Sodium 136 Potassium 3.3 L Chloride 105 Carbon Dioxide 29 Anion Gap 2 L BUN 12 Creatinine 0.7 Estimated Creat Clear 73.65 Estimated GFR 102 Glucose 94 Calcium 7.8 L Phosphorus 2.5 Magnesium 1.9
--- NOTE | 2025-01-04 17:51 | PC.NURSE ---
Shift Summary: Patient pleasant and cooperative. Up independently, seen walking in halls. Vitals stable and WNL. Dressing C/D/I, changed by surgeon this morning. x1 soft incont BM. Pain managed with PRN oral medication, see JUL.
[2025-01-04] MEDS: ENOXAPARIN 40 MG/0.4 ML INJ SUBCUT (20:55)
[2025-01-05] MEDS: PIPERACILLIN/TAZOBACTAM 3.375 GM in 0.9 % SODIUM CHLORIDE Mini-bag 100 ML IVPB ×2 (00:49→06:18)
[2025-01-05 03:00] VITALS: BP 139/83; PULSE 78; RESP 18; TEMP 36.4; O2SAT 95
--- NOTE | 2025-01-05 05:25 | PC.NURSE ---
[id number] Pt slept at from [id number], then slept on and off remainder of night. tolerating PO intake, denies N/V, using urinal at bedside, passing gas, x1 loose/watery incontinent BM during shift. rating pain to R abdomen 7/10, PRN pain medication administered with no change in pain. abd dressing changed x1, dressing saturated due to serosanguineous drainage at midline incision site next to belly button, rest of midline dennis incision C/D/I, open to air.
[2025-01-05] MEDS: OMEPRAZOLE 20 MG CAPSULE DR PO (06:19)
[2025-01-05] MEDS: HYDROCODONE-ACETAMIN 5-325 MG 1 TAB PO (06:35)
[2025-01-05 06:59] LABS: Chloride* 103 mmol/L (96-114); Potassium* 3.6 mmol/L (3.6-5.1); Sodium* 134 mmol/L (135-149)
[2025-01-05 07:00] VITALS: RESP 20
[2025-01-05 07:02] LABS: Anion Gap 3 mEq/L (7-15); Blood Urea Nitrogen* 9 mg/dL (7-30); Calcium* 8.1 mg/dL (8.4-10.6); Carbon Dioxide* 28 mmol/L (20-32); Creatinine* 0.7 mg/dL (0.5-1.5); Est. Creatinine Clearance* 73.65; Estimated Glomerular Filt Rate 102 ml/min; Glucose* 81 mg/dL (60-115)
--- NOTE | 2025-01-05 07:22 | PM.IMPN1 ---
Assessment and Plan Assessment and plan (1) Small bowel obstruction: Problem comment: Patient admitted December 26 with a two-month history of abdominal pain, bloating, diarrhea, weight loss. CT showed high-grade bowel obstruction at the terminal ileum. Initially treated conservatively without success so proceeded to surgery with Dr. Smyth performed ileocecectomy. 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 Status: Acute Exam Const: Vital Signs, click to edit/add: Vital Signs - 24 hr 01/04/25 10:51 01/04/25 14:52 01/04/25 14:52 Temperature 98 F 97.8 F Pulse Rate [Pulse Oximeter] 63 90 Respiratory Rate 20 18 18 Blood Pressure [Ri ght Arm] 147/92 H 122/74 Pulse Oximetry 96 93 93 Oxygen Delivery Me thod Room Air Room Air Room Air 01/04/25 19:00 01/04/25 23:00 01/04/25 23:00 Temperature 98.3 F 98.6 F Pulse Rate [Pulse Oximeter] 76 79 Respiratory Rate 16 16 16 Blood Pressure [Ri ght Arm] 142/80 H 126/74 Pulse Oximetry 93 92 92 Oxygen Delivery Me thod Room Air Room Air Room Air 01/05/25 03:00 Temperature 97.6 F Pulse Rate [Pulse Oximeter] 78 Respiratory Rate 18 Blood Pressure [Ri ght Arm] 139/83 Pulse Oximetry 95 Oxygen Delivery Me thod Room Air Labs Labs: Laboratory Results - last 24 hr 01/05/25 06:30 Sodium 134 L Potassium 3.6 Chloride 103 Carbon Dioxide 28 Anion Gap 3 L BUN 9 Creatinine 0.7 Estimated Creat Clear 73.65 Estimated GFR 102 Glucose 81 Calcium 8.1 L Phosphorus 2.4 L Magnesium 1.9
--- NOTE | 2025-01-05 09:24 | P.DS_ITS ---
DS: Providers Provider Date Seen: 01/05/25 Date of admission: 12/26/24 17:28 Primary care physician: Not a Local Provider Admitting Clinician: Eliana Evans MD Attending Physician on discharge: Romario Marroquin MD Date of Discharge: 01/05/25 DS: Diagnosis Discharge Diagnosis (1) Small bowel obstruction: Status: Acute Problem details: Patient admitted December 26 with a two-month history of abdominal pain, bloating, diarrhea, weight loss. CT showed high-grade bowel obstruction at the terminal ileum. Initially treated conservatively without success so proceeded to surgery with Dr. Smyth performed ileocecectomy. 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 DS: Summary Hospital Course Hospital Course: 64-year-old male admitted to the hospital with a 2 month history symptoms of abdominal bloating, diarrhea, pain, weight loss, nausea. CT scan obtained at t he time of admission showed a high-grade bowel obstruction in the area of the terminal ileum. He was treated conservatively initially without improvement and then taken to the operating room by Dr. Smyth on December 29 for ileal seek ectomy with primary anastomosis. Postoperatively he has had return of bowel function, tolerating food and having bowel movements. He does have serosanguineous drainage from his lower incision without marked erythema or tenderness. Time Spent with Patient Time attestation: Total time spent providing and/or coordinating discharge services: Exam Narrative: Exam Narrative: Abdomen is soft with active bowel sounds. Midline incision with dennis in place. Minimal erythema around the dennis. Moderate serosanguinous drainage on the dressings on the lower part of the incision. He has tenderness primarily on the right side of his abdomen consistent with his postoperative status. No other areas of tenderness. Const: Vital Signs, click to edit/add: Vital Signs - 24 hr 01/04/25 10:51 01/04/25 14:52 01/04/25 14:52 Temperature 98 F 97.8 F Pulse Rate [Pulse Oximeter] 63 90 Respiratory Rate 20 18 18 Blood Pressure [Ri ght Arm] 147/92 H 122/74 Pulse Oximetry 96 93 93 Oxygen Delivery Me thod Room Air Room Air Room Air 01/04/25 19:00 01/04/25 23:00 01/04/25 23:00 Temperature 98.3 F 98.6 F Pulse Rate [Pulse Oximeter] 76 79 Respiratory Rate 16 16 16 Blood Pressure [Ri ght Arm] 142/80 H 126/74 Pulse Oximetry 93 92 92 Oxygen Delivery Me thod Room Air Room Air Room Air 01/05/25 03:00 Temperature 97.6 F Pulse Rate [Pulse Oximeter] 78 Respiratory Rate 18 Blood Pressure [Ri ght Arm] 139/83 Pulse Oximetry 95 Oxygen Delivery Me thod Room Air Documenting provider has reviewed patient's vital signs: yes DS: Data Data Completed and Pending Labs on day of discharge: Labs from last 24 hours 01/05/25 06:30 Sodium 134 L Potassium 3.6 Chloride 103 Carbon Dioxide 28 Anion Gap 3 L BUN 9 Creatinine 0.7 Estimated Creat Clear 73.65 Estimated GFR 102 Glucose 81 Calcium 8.1 L Phosphorus 2.4 L Magnesium 1.[address] scan - abdomen: Radiologist's impression: Indication: ABDOMEN PAIN ,DIAHHRAA BLAOTING, WEIGHT LOST 20 LBS Technique: CT abdomen/pelvis with IV contrast utilizing 100 mL Isovue 370 Comparison: None Findings: Lower thorax: Trace bibasilar atelectasis. Abdomen/pelvis: Severe hepatic steatosis. No suspicious hepatic lesions. The gallbladder and biliary system are unremarkable. Subcentimeter hypoattenuating lesion in the spleen, likely a small benign cyst/hemangioma. The pancreas is unremarkable. No adrenal nodules. The kidneys are normal in size and perfused in a normal fashion. No suspicious enhancing renal masses or lesions. Simple appearing cyst at the interpolar region of the left kidney. Bilateral nonobstructing renal calculi. No hydroureteronephrosis. The bladder is unremarkable. Mild prostatomegaly with mass effect on the bladder. High-grade mechanical small bowel obstruction with numerous loops of dilated small bowel throughout the abdomen and pelvis, measuring up to approximately 8 millimeters in diameter with questionable pneumatosis intestinalis associated with a few dilated loops of small bowel. Transition point at the terminal ileum approximately 6 centimeter from the ileocecal valve (series number 2, image [id number]). The colon is relatively decompressed. No free air, free fluid, or fluid collections. No abdominopelvic lymphadenopathy. The vasculature is unremarkable. Soft tissue/musculoskeletal: Diastasis recti with several ventral abdominal wall hernias containing fat and a few loops of small bowel. Small fat containing inguinal hernias. No acute fracture or malalignment. Degenerative changes of the spine. No suspicious osseous lesions. Impression: 1. High-grade mechanical small bowel obstruction with transition point at the terminal ileum with questionable developing pneumatosis intestinalis. No free air or free fluid. Recommend consultation with surgery. 2. Additional incidental findings as detailed above. Discharge Plan Discharge Disposition: Home, Self-Care Date of Admission: 12/26/24 17:28 Attending Provider on Discharge: Ángel Marroquin Primary Care Provider: Provider,Not a Local Condition: Improved Anticipated Discharge Date/Time: 01/05/25 09:19 Discharge Medications: New hydrocodone-acetaminophen 5-325 mg Tablet 1 - 2 tab PO Q6H PRN (Reason: Pain) Qty: 40 0RF Continued albuterol sulfate [Ventolin HFA] 90 mcg/actuation HFA aerosol inhaler 2 puff inhalation Q6H PRN (DME) Accu-Chek Guide test strips Strip See Rx Instructions .ROUTE .MEDSUPPLY Qty: 10 Patient Comments: USE TO TEST FOUR TIMES DAILY OR DIRECTED Rx Instructions: As directed Cinnamon 5,000 mg 1 cap PO DAILY Discharge Orders: Discharge Order (Routine); Ordered 01/05/25 Ordered By: Ángel Marroquin Patient Education: Hydrocodone/Acetaminophen (By mouth), Colectomy (GEN), Laparoscopy Discharge Instructions Additional Instructions: Wound care: OK to shower. Let water run over incision and pat dry Apply clean gauze daily or as needed for any drainage Apply ice to the area as needed for swelling. It is also OK to use a heating pad if this provides more comfort to you. Pain control: You were prescribed a pain medication. This medication contains acetaminophen (Tylenol). If you are taking your prescribed pain pills 4 times daily, do not take additional acetaminophen. As your pain improves, you can try taking acetaminophen instead of the prescribed pain pill. It is ok to take Ibuprofen or Naproxen (per directions on packaging). This medication helps with inflammation and swelling. Follow-up Follow up with Dr. Smyth next Please call if you are experiencing severe pain, redness at incision site, nausea, vomiting, difficulty urinating, fever or have not had bowel movement in 4 days after surgery. Activity Level: No strenuous activity Activity Detail: Activity as tolerated. Avoid strenuous activity. No lifting greater than 20 lb for 6 weeks. Discharge Diet: Regular Follow Up Appointments: Hansa Smyth MD [Staff Physician, General Surgery] Referral Note: 01/10/25 Alvaro Lara MD [Staff Physician, General Surgery] - 01/09/25 3:00 pm Referral Note: [facility] for hospital follow-up. Dr. Smyth wasn't available. Ofelia Purdy MD [Staff Physician, Hematology & Oncology] Referral Note: establish care- new cancer diagnosis Provider,Not a Local [Primary Care Provider, Family Practice] Forms: [employer] Info Instructions
--- NOTE | 2025-01-05 13:58 | PC.NURSE ---
Discharge - Pt alert, oriented. Not cooperative or receptive to RN cares. Pt independent in room. Pt reported that he was displeased with his care during his stay. RN observed that pt had a BM on the floor of his room and had left his soiled brief and gown on the floor of his room without alerting staff for cleanup or assistance. It was also observed by this RN that the assistive equipment in the bathroom was strewn around the bathroom and it appeared that the floor throughout the bathroom was wet. RN removed pt PICC line, the tip was intact and RN verified the length from insertion paperwork. Abdominal dressing changed and CDI at discharge. D/C education and paperwork given, pt verbalized understanding. RN provided education regarding use of narcotic medications and driving, pt not receptive to education. Pt d/c to home via wheelchair and self transport at approximately 1145.
--- NOTE | 2025-01-05 14:12 | PC.NURSE ---
Addendum - Upon inspection of pt room after discharge, it was found that the shower curtain in the bathroom had BM spread onto it
[2025-01-12 04:54] LABS: Carcinoembryonic Antigen 1.3 ng/mL (<=3.8)
== END 2025-01-05 11:45 | disposition home or self-care (01) | DRG 330 ==
LOC: ED 15:32 → MEDSURG 16:38
PROVIDERS: Student in an Organized Health Care Education/Training Program; Surgery; Admitting Provider Family Medicine; Emergency Provider Emergency Medicine; Visit Provider Family Medicine
PROC: 0DTH0ZZ Resection of Cecum, Open Approach (ICD-10-PCS; CPT 49000; principal; 2024-12-29 10:00)
DX: C18.0 Malignant neoplasm of cecum (principal); C77.2 Secondary and unspecified malignant neoplasm of intra-abdominal lymph nodes; C78.5 Secondary malignant neoplasm of large intestine and rectum; K56.50 Intestinal adhesions [bands], unspecified as to partial versus complete obstruction; K56.609 Unspecified intestinal obstruction, unspecified as to partial versus complete obstruction; J98.11 Atelectasis; N17.9 Acute kidney failure, unspecified; K43.6 Other and unspecified ventral hernia with obstruction, without gangrene; G89.18 Other acute postprocedural pain; R00.0 Tachycardia, unspecified; R63.4 Abnormal weight loss; E87.6 Hypokalemia; E83.39 Other disorders of phosphorus metabolism; R60.0 Localized edema; R06.02 Shortness of breath; E11.9 Type 2 diabetes mellitus without complications; E78.5 Hyperlipidemia, unspecified
CPT/HCPCS: 00840; 36415; 36573; 43752; 64488; 71045; 74018; 74177; 76942; 80048; 80053; 80076; 81001; 82378; 82962; 83605; 83690; 83735; 84100; 84132; 84134; 85025; 85027; 86140; 88309; 88341; 88342; 93005; 99140; 99284; 99285; A4221; A9270; B4185; B4189; C1751; J0330; J0665; J0666; J1100; J1171; J1650; J2371; J2405; J2470; J2543; J2704; J2710; J3010; J3475; J3480; J3490; J7030; J7050; J7120; Q9967